=== PATIENT | male | born 1960 | race Caucasian/White ===

== ENCOUNTER 2016-10-18 13:13 | Observation (INO) ==
[2016-10-18] MEDS ORDERED: *HR* HYDROcodone/Acet 5/325 mg TABLET PO PRN (14:44)
[2016-10-18] MEDS ORDERED: Naloxone 0.4 MG/ML INJ IVP PRN (14:44)
[2016-10-18] MEDS ORDERED: Ondansetron 4 MG/2 ML VIAL IVP PRN (14:44)
[2016-10-18] MEDS ORDERED: Acetaminophen 325 MG TABLET PO PRN (14:44)
--- NOTE | 2016-10-18 16:36 | Internal Med History&Physical ---
<Mounika Fletcher - Last Filed: 10/18/16 17:09> Date of Encounter: 10/18/16 Time of Encounter: 16:23 Assessment and Plan (1) Near syncope Current visit: Yes Status: Acute 1 patient experienced a near syncopal episode approximately 5/6 AM. Contributing factors to the incident include history of CVA/TIA, diabetes poor oral intake, sleep deprivation. Presently neuro-Chek is within normal limits we will continue to monitor patient's neuro status 2 we will obtain MRI head/brain 3 we will obtain carotid Dopplers 4 obtain cardiac echo 5 lipid profile 6 continuous cardiac monitoring 7 fall precautions 8 IV fluids (2) Diabetes mellitus Current visit: Yes Status: Chronic 1 patient's on metformin at home creatinine is elevated we will hold for now. Accu-Cheks before meals at bedtime with slight scale insulin 2 we will obtain A1c 3 diabetic diet Qualifiers: Diabetes mellitus type: type 2 Diabetes mellitus complication status: with kidney complications Diabetes mellitus complication detail: with chronic kidney disease Diabetes mellitus mcfp insulin use: without exterminator helper use Chronic kidney disease stage: stage 3 (moderate) Qualified Code(s): E11.22 - Type 2 diabetes mellitus with diabetic chronic kidney disease; N18.3 - Chronic kidney disease, stage 3 (moderate) (3) History of CVA with residual deficit Current visit: No Status: Chronic 1 patient has history of CVA left lower extremity weakness. He is on aspirin which we will continue we will obtain lipid profile, statin (4) HTN (hypertension) Current visit: No Status: Chronic 1 presently controlled. We will hold lisinopril for now due to elevated creatinine. We will resume once back to baseline 2 low sodium diet Qualifiers: Hypertension type: essential hypertension Qualified Code(s): I10 - Essential (primary) hypertension (5) Xfgim-ot-bhpnigf kidney injury Current visit: Yes Status: Acute Presently creatinine is 2.14 last creatinine was 1.38-2015 GFR is 32 and appears previous GFR is around 40. Patient has had poor oral intake as well as has been taking lisinopril metformin. We will continue to monitor creatinine 2 we will hold metformin and lisinopril for now 3 we will give IV fluids 4 avoid nephrotoxins 5 monitor intake and output daily weights (6) Tobacco abuse Current visit: Yes Status: Acute 1 I did encourage patient to stop smoking however he verbalized was not interested in quitting at this time. Offered nicotine patch patient refused at this time I did discuss the negative effects of nicotine on the cardiovascular as well as pulmonary system. Again patient not interested in quitting (7) DVT prophylaxis Current visit: Yes Status: Acute scd Internal Medicine - H&P: HPI Chief complaint: near syncope Admitted From: Hospital to Hospital Transfer Plans for Post Hospital Care: Home History of present illness: Mr. Carrillo is a 56 year old male with past medical history of arthritis CVA 4 years ago left sided lower extremity weakness. Diabetes hyperlipidemia hypertension obstructive sleep apnea. 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 He denies any loss of consciousness falls or head injuries tremors or seizure activity slurred speech vision changes. The symptoms lasted approximately an hour and resolved on own. Patient does have past history of CVA approximately 4 years ago he states his symptoms at that time involved slurred speech and difficulty ambulating and elevated blood pressure. He is a diabetic and has had poor oral intake. His states that he does not eat or drink properly he is on metformin however he does not check his blood sugars. He states that he has been compliant with his medication and that his blood pressure has been controlled. He saw his primary care physician in approximately 2 months ago states he was doing well at that time. He presented to [facility] with the above complaints. CT of head was obtained which showed chronic microvascular changes as well as an old lacunar infarct lab work did reveal elevated creatinine 2.14 rested lab work was unremarkable. He was transferred to [facility] for further workup evaluation. Presently patient is alert and appropriate following simple commands neuro check within normal limits Cranial nerves 2 through 12 are intact. Patient does have weakness and left lower extremity. No facial droop noted speech is clear and fluent. Patient does admit to poor oral intake as well as obtaining only approximately 2 hours of sleep over the past 24 hours I reviewed this case with Dr. Sheppard who agrees with plan. Past Med Surg Social Fam HX - Past Medical History Medical history: arthritis, CVA, diabetes, GERD, hyperlipidemia, hypertension, syncope, TIA, other Psychiatric history: no psych history - Past Surgical History Surgical History: appendectomy, other - Social History Smoking Status: Current every day smoker Smokeless Tobacco Status: No (1 PPD) Alcohol use: none Drug use: none - Family History Mother Adopted: No Living Status: Hx Family Cardiac Disorders: No Hx Family Respiratory Disorders: No Hx Family Cancer: Yes (BREAST CANCER) Hx Family GI Disorders: No Hx Family Endocrine Disorder: No Hx Family Neuromuscular Disorders: No Hx Family Neurologic Disorders: No Hx Family HEENT Disorders: No Hx Family Autoimmune Disorders: No Son Adopted: No Internal Medicine - H&P: Meds Carvedilol [Coreg] 25 mg PO BID 12/09/14 [History] Ibuprofen 800 mg PO TID PRN 12/09/14 [History] Metformin HCl 1,000 mg PO BID 12/09/14 [History] Allopurinol [Zyloprim 100 MG] 100 mg PO DAILY 10/18/16 [History] Aspirin 81 mg PO DAILY 10/18/16 [History] Gabapentin [Neurontin] 600 mg PO QID 10/18/16 [History] Lisinopril [Zestril] 20 mg PO DAILY 10/18/16 [History] Omeprazole [PriLOSEC] 20 mg PO DAILY 10/18/16 [History] clonazePAM [Klonopin] 0.5 mg PO DAILY PRN 10/18/16 [History] Allergies No Known Allergies Allergy (Verified 10/18/16 08:17) All Systems PM: A 10-system review of systems was performed and is negative for pertinent findings except as documented above in the HPI. - Constitutional Constitutional: no chills, no fever(s), no night sweats - EENT Eyes: no change in vision, no discharge, no pain, no photophobia Ears: no ear discharge, no ear pain, no tinnitus Nose, mouth and throat: no dysphagia, no nasal discharge, no neck pain, no sore throat - Cardiovascular Cardiovascular ROS IM: no chest pain, no diaphoresis, no dyspnea, no lightheadedness, no palpitations, no syncope - Respiratory Respiratory: no cough, no dyspnea, no wheezing, no excessive phlegm production - Gastrointestinal Gastrointestinal: no abdominal pain, no diarrhea, no hematemesis, no hematochezia, no melena, no nausea, no vomiting - Musculoskeletal Musculoskeletal ROS IM: no numbness, no tingling - Integumentary Integumentary IM: no rash, no unusual bruising - Neurological Neurological ROS: no confusion, no convulsions, no focal weakness, no numbness, no tingling, no tremor(s) - Hematologic/Lymphatic Hematologic/Lymphatic: no easy bruising - Constitutional Vitals: Temp Pulse Resp BP Pulse Ox 98.1 F 67 98 115/78 99 10/18/16 15:47 10/18/16 15:47 10/18/16 15:47 10/18/16 15:47 10/18/16 14:52 General appearance: Present: A&O X 3, answers questions appropriately - Head Head exam: Present: atraumatic, normocephalic - Eye Eye exam: Present: PERRL, conjuntiva pink, sclera anicteric Pupils: Present: PERRL - Neck Neck exam general surgery: Present: supple, trachea midline. Absent: lymphadenopathy - Respiratory Respiratory exam: Present: CTAB. Absent: accessory muscle use, rales, rhonchi, wheezes - Cardiovascular Cardiovascular exam: Present: RRR, +S1, +S2. Absent: diastolic murmur, gallop, rubs, systolic murmur - GI/Abdominal GI/Abdominal exam: Present: normal bowel sounds, soft, no peritoneal signs. Absent: distended, tenderness - Neurological Exam Neurological exam: Present: CN II-XII intact, oriented X3, no focal deficits. Absent: pronater drift, facial droop, speech deficit Additional comments: left lower extremity weak - Skin Skin exam: Present: dry, intact Internal Med - H&P Results - EKG Data EKG shows normal: sinus rhythm - EKG Data Prior EKG available for review: no - Diagnostic Studies Other Images Additional comments: CT of head without contrast per radiology read dated 10/18/16 Findings: There is a moderate degree of periventricular and subcortical white matter low attenuation felt likely related to chronic microvascular ischemic changes. No definite acute wedge-shaped area of ischemia is identified. No intracranial hemorrhages to 5. There is a chronic appearing lacunar infarct noted adjacent to the frontal horn of the left lateral ventricle. No basilar cistern or sulcal effacement is identified. No intracranial masses seen. <Bijal Fostre - Last Filed: 10/18/16 18:47> Date of Encounter: 10/18/16 Internal Medicine - H&P: HPI History of present illness: Mr. Carrillo is a 56 year old male All Systems PM: A 10-system review of systems was performed and is negative for pertinent findings except as documented above in the HPI. - Constitutional Vitals: Temp Pulse Resp BP Pulse Ox 98.1 F 67 98 115/78 99 10/18/16 15:47 10/18/16 15:47 10/18/16 15:47 10/18/16 15:47 10/18/16 14:52 - Attending Attestation I examined this patient and reviewed laboratory, imaging and all diagnostic data. My medical decision-making was reviewed with Elisabeth Gomez NP. I agree with the documented findings, disposition and treatment plan as described above. History and exam by me shows: near-syncope episode. CT head showing chronic vessel ischemic changes. check MRI brain. doppler of carotids. telemetry.
[2016-10-18] MEDS ORDERED: clonazePAM 0.5 MG TABLET PO PRN (19:08)
[2016-10-18] MEDS: 0.9 % Sodium Chloride 1,000 ML IVC SCH (19:16)
[2016-10-18] MEDS: Gabapentin 300 MG CAPSULE PO SCH (23:05)
[2016-10-19] MEDS: 0.9 % Sodium Chloride 1,000 ML IVC SCH (05:27)
[2016-10-19 06:08] LABS: Basophils % 0.7 %; Eosinophils # 0.2 K/mcL (0.0-0.6); Hemoglobin 12.9 g/dL (12.9-16.9); Immature Granulocytes % 0.2 % (0-4); Lymphocytes # 1.6 K/mcL (0.6-4.6); Lymphocytes % 26.2 %; Mean Corpuscular HGB Conc 33.1 g/dL (31.6-35.5); Mean Corpuscular Hemoglobin 29.1 pg (28.0-33.3); Mean Platelet Volume 10.4 fL (9.4-12.4); Monocytes # 0.5 K/mcL (0.0-1.3); Monocytes % 8.8 %; Neutrophils # 3.6 K/mcL (1.6-8.9); Platelet Count 138 K/mcL (140-400); Red Blood Count 4.43 M/mcL (4.19-5.50); Red Cell Distribution Width 12.5 % (11.5-14.5); Segmented Neutrophils % 60.1 %
[2016-10-19 06:21] LABS: BUN/Creatinine Ratio 22 (6-26); Blood Urea Nitrogen 22 mg/dL (8-26); Calcium 9.4 mg/dL (8.6-10.8); Carbon Dioxide 26 mEq/L (19-29); Chloride 108 mEq/L (98-109); Chol/HDL Ratio 7.8 (0-4.9); Cholesterol 204 mg/dL (< 200); Glucose 99 mg/dL (70-99); HDL Cholesterol 26 mg/dL (40-59); LDL Cholesterol,Calculated 129 mg/dL (0-99); Magnesium 1.9 mg/dL (1.6-2.6); Osmolality,Calculated 295 (280-300); Phosphorous 2.8 mg/dL (2.3-4.7); Potassium 3.9 mEq/L (3.5-4.5); Sodium 141 mEq/L (136-145); Triglycerides 243 mg/dL (< 150); eGFR For African Americans > 60 (> 60); eGFR For Non-African Americans > 60 (> 60)
[2016-10-19 07:02] VITALS: BP 117/88
[2016-10-19] MEDS ORDERED: Aspirin 81 MG TAB.CHEW PO SCH (09:00)
[2016-10-19] MEDS: Gabapentin 300 MG CAPSULE PO SCH (09:19)
--- NOTE | 2016-10-19 11:47 | Discharge Summary ---
Date of Encounter: 10/19/16 Time of Encounter: 11:45 - Discharge Diagnosis (1) Near syncope Priority: Primary Status: Acute Comments: multifactorial: dehydration, poor oral intake in a diabetic person, +/- right ICA stenosis. echocardiogram: LVEF 55%, moderate LV diastolic dysfunction. moderate-severely dilated Left atrium. doppler of carotids showed right ICA 60-79% stenosis. MRI brains showed no acute intracranial process, moderate chronic white matter microvascular ischemic changes. remote bilateral basal ganglia and bifrontal periventricular white matter lacunar infarcts. 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 (5) CVA (cerebral infarction) Priority: Secondary Status: Chronic Qualifiers: Cerebral infarction mechanism: unspecified mechanism Qualified Code(s): I63.9 - Cerebral infarction, unspecified (6) HTN (hypertension) Priority: Primary Status: Chronic Qualifiers: Hypertension type: essential hypertension Qualified Code(s): I10 - Essential (primary) hypertension (7) Diabetes mellitus Priority: Secondary Status: Chronic Qualifiers: Diabetes mellitus type: type 2 Diabetes mellitus complication status: with kidney complications Diabetes mellitus complication detail: with chronic kidney disease Diabetes mellitus exterminator helper insulin use: without exterminator helper use Chronic kidney disease stage: stage 3 (moderate) Qualified Code(s): E11.22 - Type 2 diabetes mellitus with diabetic chronic kidney disease; N18.3 - Chronic kidney disease, stage 3 (moderate) (8) History of CVA with residual deficit Priority: Secondary Status: Chronic (9) Tobacco abuse Priority: Secondary Status: Chronic - Discharge Medications Prescriptions: Atorvastatin [Lipitor] 20 mg PO HS #60 tablet Home Medications: Carvedilol [Coreg] 25 mg PO BID 12/09/14 [History] Metformin HCl 1,000 mg PO BID 12/09/14 [History] Allopurinol [Zyloprim 100 MG] 100 mg PO DAILY 10/18/16 [History] Aspirin 81 mg PO DAILY 10/18/16 [History] Gabapentin [Neurontin] 600 mg PO QID 10/18/16 [History] Omeprazole [PriLOSEC] 20 mg PO DAILY 10/18/16 [History] clonazePAM [Klonopin] 0.5 mg PO DAILY PRN 10/18/16 [History] Atorvastatin [Lipitor] 20 mg PO HS #60 tablet 10/19/16 [Rx] Lisinopril [Zestril] 10 mg PO DAILY #0 10/19/16 [Rx] Allergies/Adverse Reactions: Allergies No Known Allergies Allergy (Verified 10/18/16 08:17) Procedures/tests Complete & Pending: Procedures Performed prior 72 hours Category Date Time Status CTA Neck [CT angio neck] [CT] Routine Cat Scan 10/19/16 11:19 Ordered MR head/brain wo con [MR] Stat MRI 10/18/16 16:39 Completed ECG 12 lead ECG [ECG] AM 0600 Y 10/19/16 06:00 Ordered EV carotid duplex imaging BI Routine Y 10/19/16 15:41 Completed EV echo with saline Routine Y 10/19/16 15:41 Completed Date of admission: 10/18/16 14:10 Primary care physician: Xavier Thomas MD - Patient Status Disposition: Home, Self-Care Condition: Good Functional capacity at discharge: independent ambulation Overall status at discharge: patient is progressing back to baseline - Ambulatory Orders Ambulatory Orders: CT angio neck [CT] Time Frame: 1 Week, Facility: [facility], Location: Radiology - Discharge Instructions Instructions: Atorvastatin (By mouth), Ischemic Stroke (DC) Follow Up With: Xavier Thomas MD [Primary Care Provider] - 10/26/16 10:00 am Additional Instructions: please take the test as soon as possible and follow with your doctor for the results. please check your blood pressure twice daily and your sugars before meals and at bedtime, write down the numbers and bring record to doctor's appointment. - Diet and Activity Activity: resume usual activities as tolerated Diet: diabetic diet, low fat, low cholesterol, low salt diet Interval History: patient declines CTA neck inpatient. he made plans and needs to leave before noon. Hospital course: Mr. Carrillo is a 56 year old male with past medical history of htn, CKD 3, diabetes, prior CVA with residual left-sided hemiparesis and tobacco use who had a near syncopal episode. troponin negative x2. EKG was unremarkable. CT head was negative for any acute process. MRI brain showed no acute intracranial process, moderate chronic white matter microvascular ischemic changes. remote bilateral basal ganglia and bifrontal periventricular white matter lacunar infarcts. Echocardiogram shows LVEF 55%, moderate LV diastolic dysfunction. moderate-severely dilated Left atrium. doppler of carotids showed right ICA 60- 79% stenosis. Patient explained in detail the findings of all tests done and that his symptoms could be secondary to dehydration, poor oral intake in a diabetic person and right ICA stenosis. I explained to him the need to have a CTA neck done but he declined any more tests inpatient and wished to go home. He agreed to have CTA neck done as outpatient. PLAN: started on aspirin and statin. follow up with primary care doctor in 1 week. - Time Spent with Patient Total time spent providing and/or coordinating discharge services: - Constitutional Vitals: Temp Pulse Resp BP Pulse Ox 98.1 F 63 16 117/88 96 10/19/16 06:55 10/19/16 06:55 10/19/16 06:55 10/19/16 06:55 10/18/16 19:39 General appearance: Present: cooperative, A&O X 3, pleasant, no acute distress, answers questions appropriately - Respiratory Respiratory exam: Present: CTAB - Cardiovascular Cardiovascular exam: Present: RRR - GI/Abdominal GI/Abdominal exam: Present: normal bowel sounds, soft. Absent: distended, tenderness - Extremities Exam Extremities exam: Present: pedal edema - Back Exam Back exam: Absent: CVA tenderness (L), CVA tenderness (R) - Neurological Exam Neurological exam: Present: alert, oriented X3, facial droop (left facial droop is chronic). Absent: pronater drift, speech deficit - Skin Skin exam: Absent: rash
--- NOTE | 2016-10-20 19:24 | Carotid Imaging Report ---
Carotid Duplex Patient Name:Devante Carrillo Order Number:[id number] Procedure Date:10/19/2016 Date:1960ge:56 yrs Gender:Male Lt BP:152 / 62 mmHg Rt.BP:145 / 86 mmHgHeart Rate: Location:[facility] Room #: 2NE28 Associate Professor Computer Science:Antony Reyes RN Referring MD:Mounika Fletcher EMISSIONS INSPECTOR merchandise presentation associate:Xavier Thomas MD Reading MD:Onur Gibson MD , FACS Primary Indications:Syncope Risk Factors Yes/No Hypertension Yes Diabetes Yes Hypercholesterolemia Yes Smoking Current Yes Hx of CVA Yes Anticoagulants No Hx of CAD/PTCA No Previous Vascular Surgery No Impressions: Findings: Right carotid system has a severe, 60-79% stenosis. Findings: Left carotid system has nonstenotic plaque. Recommendations: Test completed on 10/19/2016 at 8:30:00 am. Findings Carotid Duplex: Right: The right proximal common carotid artery has a PSV of 108 cm/s and a EDV of 20 cm/s. The right mid common carotid artery has a PSV of 55 cm/s and a EDV of 15 cm/s. There is nonstenotic plaque in the right distal common carotid artery with a PSV of 54 cm/s and a EDV of 13 cm/s. There is smooth heterogeneous plaque. There is nonstenotic plaque in the right bifurcation with a PSV of 53 cm/s and a EDV of 15 cm/s. There is smooth heterogeneous plaque. There is nonstenotic plaque in the right proximal internal carotid artery with a PSV of 53 cm/s and a EDV of 17 cm/s. There is smooth heterogeneous plaque. There is 60-79% stenosis in the right mid internal carotid artery with a PSV of 147 cm/s and a EDV of 54 cm/s. There is 60-79% stenosis in the right distal internal carotid artery with a PSV of 140 cm/s and a EDV of 63 cm/s. There is nonstenotic plaque in the right eca with a PSV of 222 cm/s and a EDV of 34 cm/s. There is smooth heterogeneous plaque. The right vertebral artery has a PSV of 42 cm/s and a EDV of 18 cm/s. Left: The left proximal common carotid artery has a PSV of 131 cm/s and a EDV of 35 cm/s. The left mid common carotid artery has a PSV of 72 cm/s and a EDV of 24 cm/s. There is nonstenotic plaque in the left distal common carotid artery with a PSV of 73 cm/s and a EDV of 24 cm/s. There is smooth heterogeneous plaque. There is nonstenotic plaque in the left bifurcation with a PSV of 74 cm/s and a EDV of 24 cm/s. There is smooth heterogeneous plaque. There is nonstenotic plaque in the left proximal internal carotid artery with a PSV of 73 cm/s and a EDV of 25 cm/s. There is smooth heterogeneous plaque. There is nonstenotic plaque in the left mid internal carotid artery with a PSV of 81 cm/s and a EDV of 29 cm/s. There is smooth heterogeneous plaque. The left distal internal carotid artery has a PSV of 55 cm/s and a EDV of 20 cm/s. There is nonstenotic plaque in the left eca with a PSV of 124 cm/s and a EDV of 13 cm/s. There is smooth heterogeneous plaque. The left vertebral artery has a PSV of 56 cm/s and a EDV of 20 cm/s. Prior Study: Changes noted compared to prior study dated: 08/01/2013. Carotid Results Right PSV EDV Assessment Proximal CCA 108 20 Normal Mid CCA 55 15 Normal Distal CCA 54 13 Non Stenotic Plaque Bifurcation 53 15 Non Stenotic Plaque Proximal ICA 53 17 Non Stenotic Plaque Mid ICA 147 54 60-79% stenosis Distal ICA 140 63 60-79% stenosis ECA 222 34 Non Stenotic Plaque Vertebral Artery 42 18 Normal Left PSV EDV Assessment Proximal CCA 131 35 Normal Mid CCA 72 24 Normal Distal CCA 73 24 Non Stenotic Plaque Bifurcation 74 24 Non Stenotic Plaque Proximal ICA 73 25 Non Stenotic Plaque Mid ICA 81 29 Non Stenotic Plaque Distal ICA 55 20 Normal ECA 124 13 Non Stenotic Plaque Vertebral Artery 56 20 Normal Ratio's Right ICA/CCA Ratio: 2.67 ICA/CCA Values: 147/55 Left ICA/CCA Ratio: 1.13 ICA/CCA Values: 81/72 Updated by Onur Gibson MD, FACS on 10/20/2016 7:19:34 PM Onur Gibson MD electronically signed on 10/20/2016 7:19:55 PM with status of Final
== END 2016-10-19 12:18 | disposition home or self-care (01) ==
LOC: 2NENU → SUATTDRO 14:10
PROVIDERS: ADMIT Internal Medicine; ATTEND Internal Medicine

== ENCOUNTER 2017-11-15 01:26 | Inpatient (IN) ==
[2017-11-15 05:42] LABS: Troponin I < 0.03 ng/mL (< 0.04)
[2017-11-15] MEDS ORDERED: Naloxone 0.4 MG/ML INJ IVP PRN (07:57)
[2017-11-15] MEDS ORDERED: *HR* Dextrose 50 % in Water (Syg) 50 ML SYRINGE IVP PRN (08:01)
[2017-11-15] MEDS ORDERED: Dextrose Gel 15 GM/37.5 ML TUBE PO PRN ×2 (08:01)
[2017-11-15] MEDS ORDERED: D5% in Water 1,000 ML IVC PRN (08:01)
[2017-11-15] MEDS: Aspirin 81 MG TAB.CHEW PO SCH (08:20)
[2017-11-15] MEDS: Gabapentin 300 MG CAPSULE PO SCH ×5 (08:21→20:24)
[2017-11-15 08:59] LABS: Estimated Average Glucose 131 mg/dl; Hemoglobin A1C 6.2 %
[2017-11-15 09:08] LABS: Chol/HDL Ratio 6.1 (0-4.9); Cholesterol 176 mg/dL (< 200); HDL Cholesterol 29 mg/dL (40-59); LDL Cholesterol,Calculated 112 mg/dL (0-99); Triglycerides 173 mg/dL (< 150)
--- NOTE | 2017-11-15 09:08 | Internal Med History&Physical ---
Date of Encounter: 11/15/17 Time of Encounter: 09:06 Internal Medicine - H&P: HPI Chief complaint: Chest pressure Admitted From: Home Plans for Post Hospital Care: Home History of present illness: Mr. Carrillo is a 57 year old male with past medical history of diabetes mellitus , CHF with preserved ejection fraction, history of erosive CVA with residual deficits, hypertension presented to the outside facility with complaints of chest pressure said to have started at home prior to presentation, lasted for about 30 minutes. No associated diaphoresis, dyspnea on exertion or at rest, leg swelling, dizziness, or confusion. He reports chest pain resolved after administration of nitroglycerin at the outside facility. He denies any other chest or respiratory symptoms. He denies neurologic symptoms. He denies nausea vomiting or diarrhea, no change in bowel or urinary habits. The patient smokes occasionally, he denies illicit drug use. There is significant family history of cardiac disease before the age of 55 in his father. Initial troponin and EKG from outside facility unremarkable. Second troponin done here at [facility] unremarkable. The patient will be placed on observation for chest pain rule out acute coronary syndrome. He is full code Past Med Surg Social Fam HX - Past Medical History Medical history: arthritis, CVA, diabetes, GERD, hyperlipidemia, hypertension, syncope, TIA, other Additional medical history: TIA X 2, BELLS PALSY Psychiatric history: no psych history - Past Surgical History Surgical History: appendectomy, other Additional surgical history: LEFT KNEE SURGERY - Social History Smoking Status: Current every day smoker Smokeless Tobacco Status: No Alcohol use: none Drug use: none - Family History Mother Adopted: No Living Status: Hx Family Cardiac Disorders: No Hx Family Respiratory Disorders: No Hx Family Cancer: Yes (BREAST CANCER) Hx Family GI Disorders: No Hx Family Endocrine Disorder: No Hx Family Neuromuscular Disorders: No Hx Family Neurologic Disorders: No Hx Family HEENT Disorders: No Hx Family Autoimmune Disorders: No Son Adopted: No Internal Medicine - H&P: Meds Aspirin 81 mg PO DAILY 10/18/16 [History] Gabapentin [Neurontin] 600 mg PO QID 10/18/16 [History] Omeprazole [PriLOSEC] 20 mg PO DAILY 10/18/16 [History] Carvedilol [Coreg] 25 mg PO BID 11/15/17 [History] Ibuprofen [Ibuprofen] 800 mg PO TID PRN 11/15/17 [History] Lisinopril [Zestril] 20 mg PO DAILY 11/15/17 [History] Metformin HCl [Metformin HCl] 1,000 mg PO BID 11/15/17 [History] 3 Allergy/AdvReac Type Severity Reaction Status Date / Time No Known Allergies Allergy Verified 11/14/17 21:44 All Systems PM: A 10-system review of systems was performed and is negative for pertinent findings except as documented above in the HPI. - Constitutional Constitutional: no chills, no fever(s), no night sweats - EENT Eyes: no change in vision, no discharge, no pain, no photophobia Ears: no ear discharge, no ear pain, no tinnitus Nose, mouth and throat: no dysphagia, no nasal discharge, no neck pain, no sore throat - Cardiovascular Cardiovascular ROS IM: as per HPI, chest pain, no diaphoresis, no dyspnea, no dyspnea on exertion, no lightheadedness, no palpitations, no syncope - Respiratory Respiratory: as per HPI, no cough, no dyspnea, no wheezing, no excessive phlegm production - Gastrointestinal Gastrointestinal: no abdominal pain, no diarrhea, no hematemesis, no hematochezia, no melena, no nausea, no vomiting - Musculoskeletal Musculoskeletal ROS IM: no numbness, no tingling - Integumentary Integumentary IM: no rash, no unusual bruising - Neurological Neurological ROS: no confusion, no convulsions, no focal weakness, no numbness, no tingling, no tremor(s) - Hematologic/Lymphatic Hematologic/Lymphatic: no easy bruising - Constitutional Vitals: Temp Pulse Resp BP Pulse Ox 100.3 F H 71 16 136/83 96 11/15/17 07:53 11/15/17 07:53 11/15/17 07:53 11/15/17 07:53 11/15/17 07:53 General appearance: Present: A&O X 3, pleasant, no acute distress - Head Head exam: Present: atraumatic, normocephalic - Eye Eye exam: Present: PERRL, conjuntiva pink, sclera anicteric Pupils: Present: PERRL - Neck Neck exam general surgery: Present: supple, trachea midline. Absent: lymphadenopathy - Respiratory Respiratory exam: Present: CTAB. Absent: accessory muscle use, rales, rhonchi, wheezes - Cardiovascular Cardiovascular exam: Present: RRR, +S1, +S2. Absent: diastolic murmur, gallop, rubs, systolic murmur - GI/Abdominal GI/Abdominal exam: Present: normal bowel sounds, soft, no peritoneal signs. Absent: distended, tenderness - Extremities Exam Extremities exam: Present: warm, radial pulses palpable and symmetrical. Absent : calf tenderness, cyanotic, pedal edema - Neurological Exam Neurological exam: Present: alert, CN II-XII intact, oriented X3, no focal deficits, facial droop (Right facial droop, residual deficit from prior stroke.) . Absent: pronater drift, speech deficit - Skin Skin exam: Present: dry, intact Internal Med - H&P Results - Labs Labs: Cardiac Enzymes 11/15/17 Range/Units 04:12 Troponin I < 0.03 (< 0.04) ng/mL - Assessment and plan (1) Chest pain Current Visit: Yes Status: Acute Assessment and plan: Patient with significant risk factors including history of prior strokes 2, hyperlipidemia, diabetes mellitus, and family history of CT before the age of 15 his father who presented with exertional chest pain Troponin negative 2 EKG with normal sinus rhythm and no ST segment changes. Chest x-ray with cardiomegaly, no acute findings, CT angiogram unremarkable for embolism but shows coronary artery disease. Obtain third set of troponin Obtain echocardiogram Stress tests a.m. 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 Diabetes mellitus complication status: with kidney complications Diabetes mellitus complication detail: with chronic kidney disease Chronic kidney disease stage: stage 3 (moderate) Qualified Code(s): E11.22 - Type 2 diabetes mellitus with diabetic chronic kidney disease; N18.3 - Chronic kidney disease, stage 3 (moderate) (3) DVT prophylaxis Current Visit: Yes Status: Acute Assessment and plan: Lovenox (4) GERD (gastroesophageal reflux disease) Current Visit: Yes Status: Chronic Assessment and plan: Continue home dose of omeprazole Qualifiers: Esophagitis presence: esophagitis presence not specified Qualified Code(s) : K21.9 - Gastro-esophageal reflux disease without esophagitis (5) History of CVA with residual deficit Current Visit: Yes Status: Chronic Assessment and plan: With residual left hemiparesis and right facial droop Continue aspirin and Lipitor (6) HTN (hypertension) Current Visit: Yes Status: Chronic Assessment and plan: controlled on home medications, continue the same. Qualifiers: Hypertension type: essential hypertension Qualified Code(s): I10 - Essential (primary) hypertension (7) Tobacco abuse Current Visit: Yes Status: Chronic Assessment and plan: Cessation counseling provided - Time Spent With Patient Total time spent is greater than 50% in coordination of care (as documented) at patient's floor/unit and/or counseling patient:
[2017-11-15] MEDS: Insulin LISPRO 300 UNITS/3 ML VIAL SQ SCH ×3 (11:39→20:19)
[2017-11-15] MEDS ORDERED: Acetaminophen 325 MG TABLET PO PRN (20:48)
[2017-11-15] MEDS: Acetaminophen 325 MG TABLET PO PRN (21:54)
[2017-11-16] MEDS ORDERED: Regadenoson 0.4 MG/5 ML SYRINGE IVP ONE (05:30)
[2017-11-16 09:49] LABS: Basophils % 0.4 %; Eosinophils # 0.1 K/mcL (0.0-0.6); Eosinophils % 1.9 %; Hematocrit 37.7 % (37.5-50.1); Hemoglobin 12.8 g/dL (12.9-16.9); Immature Granulocytes % 0.4 % (0-4); Lymphocytes # 1.1 K/mcL (0.6-4.6); Mean Corpuscular Hemoglobin 29.9 pg (28.0-33.3); Mean Corpuscular Volume 88.1 fL (83.0-100.0); Mean Platelet Volume 9.8 fL (9.4-12.4); Monocytes # 0.7 K/mcL (0.0-1.3); Monocytes % 14.2 %; Neutrophils # 2.8 K/mcL (1.6-8.9); Platelet Count 111 K/mcL (140-400); Red Blood Count 4.28 M/mcL (4.19-5.50); Red Cell Distribution Width 13.2 % (11.5-14.5); Segmented Neutrophils % 59.1 %
[2017-11-16] MEDS: Gabapentin 300 MG CAPSULE PO SCH ×4 (09:57→20:32)
[2017-11-16] MEDS: Aspirin 81 MG TAB.CHEW PO SCH (09:57)
[2017-11-16 10:05] LABS: BUN/Creatinine Ratio 15 (6-26); Blood Urea Nitrogen 14 mg/dL (6-20); Calcium 9.2 mg/dL (8.6-10.3); Carbon Dioxide 26 mEq/L (23-29); Chloride 104 mEq/L (98-107); Glucose 106 mg/dL (70-105); Osmolality,Calculated 283 (280-300); Potassium 3.6 mEq/L (3.5-5.1); Sodium 136 mEq/L (136-145); eGFR For African Americans > 60 (> 60); eGFR For Non-African Americans > 60 (> 60)
[2017-11-16] MEDS: Insulin LISPRO 300 UNITS/3 ML VIAL SQ SCH ×4 (10:09→20:30)
[2017-11-16 11:45] LABS: Adenovirus Not Detected (Not Detect); Bordetella Pertussis Not Detected (Not Detect); Chlamydophila pneumoniae Not Detected (Not Detect); Coronavirus 229E Not Detected (Not Detect); Coronavirus HKU1 Not Detected (Not Detect); Coronavirus NL63 Not Detected (Not Detect); Coronavirus OC43 Not Detected (Not Detect); Human Metapneumovirus Not Detected (Not Detect); Human Rhinovirus/Enterovirus Not Detected (Not Detect); Influenza A Subtype 2009 H1 Not Detected (Not Detect); Influenza A Untypeable Not Detected (Not Detect); Influenza B Not Detected (Not Detect); Mycoplasma pneumoniae Not Detected (Not Detect); Parainfluenza Virus 1 Not Detected (Not Detect); Parainfluenza Virus 2 Not Detected (Not Detect); Parainfluenza Virus 3 Not Detected (Not Detect); Parainfluenza Virus 4 Not Detected (Not Detect); Respiratory Syncytial Virus Not Detected (Not Detect)
[2017-11-16] MEDS: Acetaminophen 325 MG TABLET PO PRN (12:10)
--- NOTE | 2017-11-16 13:39 | Cardiology Consult Note ---
<Ximena Powers Angelo - Last Filed: 11/16/17 13:37> Date of Encounter: 11/16/17 Time of Encounter: 13:15 Assessment and Plan (1) Abnormal stress test Current Visit: Yes Status: Acute Troponin negative x3. No acute ischemic changes noted. Chest pain free since admission. Cardiology consult today for abnormal stress test: small, mild basal inferolateral defect consistent with ischemia, SDS 1, gated EF 50%. TTE shows preserved LVEF with normal wall motion. Significant risk factors for CAD include: tobacco abuse, HTN, HLD, DMII, and family hx. Of note, thrombocytopenia noted with PLT 111--hx documented in outpatient notes. Patient denies hx--no abnormal bleeding reported. On asa at home. Recommend LHC with possible PCI; patient will consider but prefers to do in the outpatient setting. Will further review with Dr. Rashid. Continue asa, statin, and BB. Discussion w patient/family: The assessment and plan as outlined above was discussed with the patient and/or family members who expressed understanding and agreement. All questions were answered. Thank you for involving us in the care of your patient. Please call with any questions. The patient will be discussed and reviewed with Dr. Rashid; changes to be made accordingly. History of Present Illness Consult date: 11/16/17 Requesting physician: Nimco Aec Consult reason: Abnormal stress test Chief complaint: Chest pressure History of present illness: Mr. 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 Reports discomfort was non-radiating and lasted several minutes; resolved without intervention. He was then sent to the ED from work for further evaluation. Troponin negative. ECG was without ischemic changes. Cardiology consulted today for abnormal stress test--small, mild basal inferolateral defect, gated EF=50% Past Med Surg Social Fam HX - Past Medical History Attestation: Yes The following information was validated with the patient. Source: patient Medical history: arthritis, CVA, diabetes, GERD, hyperlipidemia, hypertension, syncope, TIA, other Additional medical history: TIA X 2, BELLS PALSY Psychiatric history: no psych history - Past Surgical History Surgical History: appendectomy, other Additional surgical history: LEFT KNEE SURGERY - Social History Smoking Status: Current every day smoker Packs per day: 0.5 Smokeless Tobacco Status: No Alcohol use: none Drug use: none - Family History Mother Adopted: No Living Status: Hx Family Cardiac Disorders: No Hx Family Respiratory Disorders: No Hx Family Cancer: Yes (BREAST CANCER) Hx Family GI Disorders: No Hx Family Endocrine Disorder: No Hx Family Neuromuscular Disorders: No Hx Family Neurologic Disorders: No Hx Family HEENT Disorders: No Hx Family Autoimmune Disorders: No Son Adopted: No Medications and Allergies Aspirin 81 mg PO DAILY 10/18/16 [History] Gabapentin [Neurontin] 600 mg PO QID 10/18/16 [History] Omeprazole [PriLOSEC] 20 mg PO DAILY 10/18/16 [History] Carvedilol [Coreg] 25 mg PO BID 11/15/17 [History] Ibuprofen [Ibuprofen] 800 mg PO TID PRN 11/15/17 [History] Lisinopril [Zestril] 20 mg PO DAILY 11/15/17 [History] Metformin HCl [Metformin HCl] 1,000 mg PO BID 11/15/17 [History] 3 Allergy/AdvReac Type Severity Reaction Status Date / Time No Known Allergies Allergy Verified 11/14/17 21:44 All Systems Review: The remainder of the systems were reviewed and are negative - Cardiovascular Cardiovascular: as per HPI Physical Examination Vital Signs, Last 4 Hours Temp Pulse Resp BP Pulse Ox 11/16/17 11:29 98.3 F 56 18 122/76 97 General: Conversant HEENT: Atraumatic, Normocephaly Cardiac: Reg Rate and Rhythm, Normal S1 and S2 Lungs: Normal Breath Sounds Neuro: Alert and responsive Abdomen: Soft Skin: No rashes noted on visualized skin Musculoskeletal: No Chest Wall Tenderness Extremities: No Edema, Normal Pulses Results 11/16/17 09:34 11/16/17 09:34 Lab Results 11/16/17 11/16/17 09:34 09:34 WBC 4.7 Hgb 12.8 L Hct 37.7 Plt Count 111 L Sodium 136 Potassium 3.6 Chloride 104 Carbon Dioxide 26 BUN 14 Creatinine 0.94 Glucose 106 H Calcium 9.2 Active Medications Acetaminophen (Tylenol) 650 mg PO Q6HR PRN PRN Reason: Pain and/or Fever Stop: 05/17/18 23:24 Last Admin: 11/16/17 12:10 Dose: 650 mg Aspirin (Aspirin) 81 mg PO DAILY [facility] Stop: 05/17/18 09:01 Last Admin: 11/16/17 09:57 Dose: 81 mg Atorvastatin Calcium (Lipitor) 40 mg PO HS [facility] Stop: 05/17/18 21:01 Last Admin: 11/15/17 20:24 Dose: 40 mg Carvedilol (Coreg) 25 mg PO BIDWM [facility] PRN Reason: Protocol Stop: 05/17/18 08:16 Last Admin: 11/16/17 09:59 Dose: Not Given Dextrose/Water (Dextrose 50% (Syg)) 25 ml IVP AD PRN PRN Reason: Hypoglycemia Stop: 05/17/18 08:02 Gabapentin (Neurontin) 600 mg PO QID [facility] Stop: 05/17/18 09:01 Last Admin: 11/16/17 12:11 Dose: 600 mg Glucagon (Glucagen) 1 mg IM ONCE PRN PRN Reason: Hypoglycemia Stop: 05/17/18 08:02 Glucose (Gluctose) 15 gm PO ONCE PRN PRN Reason: Hypoglycemia Stop: 05/17/18 08:02 Glucose (Gluctose) 30 gm PO ONCE PRN PRN Reason: Hypoglycemia Stop: 05/17/18 08:02 Dextrose (Dextrose 5%) 1,000 mls @ 100 mls/hr IVC .Q10H PRN PRN Reason: HYPOGLYCEMIA Stop: 05/17/18 08:02 Insulin Human Lispro (Humalog) 0 units SQ TIDAC [facility] PRN Reason: Protocol Stop: 05/17/18 11:31 Last Admin: 11/16/17 12:11 Dose: 2 units Insulin Human Lispro (Humalog) 0 units SQ [facility] PRN Reason: Protocol Stop: 05/17/18 21:01 Last Admin: 11/15/17 20:19 Dose: Not Given Lisinopril (Zestril) 10 mg PO DAILY [facility] PRN Reason: Protocol Stop: 05/17/18 09:01 Last Admin: 11/16/17 09:56 Dose: 10 mg Naloxone HCl (Narcan) 0.4 mg IVP Q2MIN PRN PRN Reason: SEE COMMENTS Stop: 05/17/18 07:58 Omeprazole (Prilosec) 20 mg PO DAILY@0630 [facility] PRN Reason: Protocol Stop: 05/17/18 09:01 Last Admin: 11/16/17 05:06 Dose: Not Given - Imaging and Cardiology Stress Test: report reviewed Echo: report reviewed - EKG Interpretation EKG results cardiology: personally reviewed Consult Discharge Plan - Plan Referrals: Xavier Thomas MD [Primary Care Provider] - <Ghada Rashid - Last Filed: 11/16/17 15:55> Date of Encounter: 11/16/17 - Attending Attestation I have personally performed a face to face evaluation on this patient. I have reviewed and agree with the care plan. History and Exam by me shows: 57 YOm with chest pain multiple times prior to admisson Abnormal stress test Left heart cath R/B/A d/w vivek and he agrees to proceed Assessment and Plan Discussion w patient/family: The assessment and plan as outlined above was discussed with the patient and/or family members who expressed understanding and agreement. All questions were answered. Thank you for involving us in the care of your patient. Please call with any questions. History of Present Illness History of present illness: Mr. Carrillo is a 57 year old male All Systems Review: The remainder of the systems were reviewed and are negative Results 11/16/17 09:34 11/16/17 09:34 Lab Results 11/16/17 11/16/17 09:34 09:34 WBC 4.7 Hgb 12.8 L Hct 37.7 Plt Count 111 L Sodium 136 Potassium 3.6 Chloride 104 Carbon Dioxide 26 BUN 14 Creatinine 0.94 Glucose 106 H Calcium 9.2
--- NOTE | 2017-11-16 17:12 | Internal Med Progress Note ---
Date of Encounter: 11/16/17 Time of Encounter: 09:30 - Assessment and plan (1) Chest pain Current Visit: Yes Status: Acute Assessment and plan: improved now; Telemetry and serial Troponins negative for ACS; initial EKG and chest XRay were normal; Lipid profile noted, mildly elevated TG and LDL-cholesterol; continue ASA, statin and beta kenisha; nuclear stress test is abnormal with Small sized, mild intensity, reversible basal inferolateral defect suggestive of ischemia. Echo showed preserved EF, mild concentric LVH; Cardiology consulted, possible plan for [facility] tomorrow; Qualifiers: Chest pain type: other chest pain Qualified Code(s): R07.89 - Other chest pain; R07.8 - Other chest pain (2) HTN (hypertension) Current Visit: Yes Status: Chronic Assessment and plan: BP acceptable; continue home meds; Qualifiers: Hypertension type: essential hypertension Qualified Code(s): I10 - Essential (primary) hypertension (3) GERD (gastroesophageal reflux disease) Current Visit: Yes Status: Chronic Qualifiers: Esophagitis presence: esophagitis presence not specified Qualified Code(s) : K21.9 - Gastro-esophageal reflux disease without esophagitis (4) Diabetes mellitus Current Visit: Yes Status: Chronic Assessment and plan: blood sugars well-controlled; A1C 6.2%; continue Accucheck blood glucose monitoring with SSI as needed; diabetic diet; Qualifiers: Diabetes mellitus type: type 2 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[facility] use Diabetes mellitus complication status: with unspecified complications Qualified Code(s): E11.8 - Type 2 diabetes mellitus with unspecified complications (5) History of CVA with residual deficit Current Visit: Yes Status: Chronic (6) DVT prophylaxis Current Visit: Yes Status: Acute (7) Tobacco abuse Current Visit: Yes Status: Chronic - Time Spent With Patient Total time spent is greater than 50% in coordination of care (as documented) at patient's floor/unit and/or counseling patient: - Subjective Interval history: Reports improvement in chest pain; no dyspnea, cough; also had high grade fever last night, now afebrile; - Constitutional Vitals: Temp Pulse Resp BP Pulse Ox 97.9 F 50 18 151/76 98 11/16/17 16:00 11/16/17 16:00 11/16/17 16:00 11/16/17 16:00 11/16/17 16:00 General appearance: Present: A&O X 3, answers questions appropriately - Respiratory Respiratory exam: Present: CTAB. Absent: accessory muscle use, rales, rhonchi, wheezes - Cardiovascular Cardiovascular exam: Present: RRR, +S1, +S2. Absent: diastolic murmur, gallop, rubs, systolic murmur - GI/Abdominal GI/Abdominal exam: Present: normal bowel sounds, soft, no peritoneal signs. Absent: distended, tenderness - Extremities Exam Extremities exam: Present: full ROM, warm, radial pulses palpable and symmetrical. Absent: calf tenderness, cyanotic, pedal edema Internal Medicine: Result - Labs CBC & Chem 7: 11/16/17 09:34 11/16/17 09:34 Labs: Short CBC 11/16/17 Range/Units 09:34 WBC 4.7 (4.3-11.1) K/mcL Hgb 12.8 L (12.9-16.9) g/dL Hct 37.7 (37.5-50.1) % Plt Count 111 L (140-400) K/mcL Neutrophils # 2.8 (1.6-8.9) K/mcL BMP 11/16/17 09:34 Sodium 136 Potassium 3.6 Chloride 104 Carbon Dioxide 26 BUN 14 Creatinine 0.94 Glucose 106 H Calcium 9.2 - Impressions Impressions Echocardiogram 11/15/17 07:56 Impressions: LVEF 60%. Normal LV chamber size and function. Mild concentric left ventricular hypertrophy. Mild left ventricular diastolic dysfunction. Normal right ventricular structure and function. No evidence of pulmonary hypertension. No significant valvular dysfunction. Left Ventricular Wall Motion: Rest Echo Findings All wall segments showed normal motion. Findings: Study Quality * Technically adequate exam. ECG Findings * Normal sinus rhythm. Left Ventricle * LVEF 60%. * Normal LV chamber size and function. * Mild concentric left ventricular hypertrophy. * Mild left ventricular diastolic dysfunction. Right Ventricle * Normal right ventricular structure and function. Left Atrium * Moderately dilated left atrium. Right Atrium * Normal right atrial size. Aortic Valve * Aortic valve not well visualized. * No aortic stenosis. * No aortic regurgitation. Mitral Valve * Normal mitral valve structure and function. * No mitral stenosis. * Trace mitral regurgitation. Tricuspid Valve * Normal tricuspid valve structure and function. * Trace tricuspid regurgitation. * No evidence of pulmonary hypertension. Pulmonic Valve * Pulmonic valve is not well visualized. * No pulmonic regurgitation. Aorta * Normally sized aortic root. Pericardium * The pericardium appears normal. IVC * Normal IVC dimensions and inspiratory collapse. Pulmonary Artery * Normal visualized portions of the main pulmonary artery. Consult Discharge Plan - Plan Referrals: Xavier Thomas MD [Primary Care Provider] -
[2017-11-17] MEDS: Gabapentin 300 MG CAPSULE PO SCH ×4 (07:55→20:46)
[2017-11-17] MEDS: Insulin LISPRO 300 UNITS/3 ML VIAL SQ SCH ×4 (07:56→20:48)
[2017-11-17] MEDS: Aspirin 81 MG TAB.CHEW PO SCH ×2 (07:56→09:27)
--- NOTE | 2017-11-17 09:23 | Event Note ---
Date of Encounter: 11/17/17 Time of Encounter: 08:30 - Cardiology Event Note Plan for [facility] today with possible PCI--pt. remains agreeable. Indication: Abnormal stress test, effort angina. Will check CBC, BMP this AM to ensure PLT remain stable. Discussed and reviewed with Dr. Rashid.
[2017-11-17 09:50] LABS: Basophils % 0.4 %; Eosinophils # 0.2 K/mcL (0.0-0.6); Eosinophils % 4.6 %; Hematocrit 37.8 % (37.5-50.1); Immature Granulocytes % 0.4 % (0-4); Lymphocytes # 1.1 K/mcL (0.6-4.6); Lymphocytes % 23.4 %; Mean Corpuscular HGB Conc 34.4 g/dL (31.6-35.5); Mean Corpuscular Hemoglobin 29.8 pg (28.0-33.3); Mean Corpuscular Volume 86.7 fL (83.0-100.0); Mean Platelet Volume 10.2 fL (9.4-12.4); Monocytes # 0.5 K/mcL (0.0-1.3); Monocytes % 10.9 %; Neutrophils # 2.9 K/mcL (1.6-8.9); Platelet Count 112 K/mcL (140-400); Red Blood Count 4.36 M/mcL (4.19-5.50); Red Cell Distribution Width 12.7 % (11.5-14.5); Segmented Neutrophils % 60.3 %
[2017-11-17 10:08] LABS: BUN/Creatinine Ratio 19 (6-26); Blood Urea Nitrogen 15 mg/dL (6-20); Calcium 9.3 mg/dL (8.6-10.3); Carbon Dioxide 25 mEq/L (23-29); Chloride 107 mEq/L (98-107); Glucose 98 mg/dL (70-105); Osmolality,Calculated 287 (280-300); Potassium 3.7 mEq/L (3.5-5.1); Sodium 138 mEq/L (136-145); eGFR For African Americans > 60 (> 60); eGFR For Non-African Americans > 60 (> 60)
[2017-11-17] MEDS ORDERED: Heparin 1,000 UNITS/500 mL 500 ML ONE (13:35)
[2017-11-17] MEDS ORDERED: ISOVUE-370 200 ML INFUS..BTL IV ONE (13:35)
[2017-11-17] MEDS ORDERED: *HR* Heparin 10,000 UNIT/10 ML VIAL ONE (13:35)
[2017-11-17] MEDS ORDERED: Nitroglycerin 1,000 MCG/10 ML VIAL IV ONE (13:35)
[2017-11-17] MEDS ORDERED: 0.9 % Sodium Chloride 1,000 ML ONE ×2 (13:35→13:59)
[2017-11-17] MEDS ORDERED: *HR* Midazolam HCl 2 MG/2 ML VIAL ONE ×2 (14:06→14:27)
--- NOTE | 2017-11-17 14:09 | Pre-Sedation Evaluation ---
Pre-sedation evaluation - Pre-sedation checklist Date of procedure: 11/17/17 Procedure: heart cat Recent Vitals: Last Vital Signs Temp 98.3 F 11/17/17 11:17 Pulse 54 11/17/17 11:17 Resp 16 11/17/17 11:17 BP 138/83 11/17/17 11:17 Pulse Ox 98 11/17/17 11:17 H&P (including ROS) documented in medical record: Yes Previous reaction to sedatives/anesthetics: No Dietary Status: NPO after Midnight Airway Assessment: Patient can open mouth completely, TMJ function normal Dentition: dentures removed Possible difficult airway: No ASA Classification *see protocol: CLASS IV-Severe systemic disease/constant threat to pt's life Plan of Care: Pt appropriate candidate for procedure/moderate/conscious sedation , Risks/benefits of procedure/sedation discussed w/ patient/family, If not NPO; Risk of intake outweiged by necessity to perform procedure Cardiac Registry (Cardio Only) - Functional Capacity Functional Capacity: >=4 METS with symptoms - Clincal Frailty Scale Clinical Frailty Scale: Managing Well
[2017-11-17] MEDS ORDERED: Nitroglycerin Spray 4.9 GM BOTTLE ONE (14:34)
--- NOTE | 2017-11-17 15:44 | Invasive Diagnostic Lab Proc ---
Name: Devante Carrilol Date of Study: 11/17/2017 Date: 1960 Ht: 68.9in Medical Record#: [id number] Age: 57 Wt: 209.44lb Gender: Male BSA: 2.1 Order #: [id number] BMI: 31.02 Physicians Procedure Physician: Rafat Barajas DO Referring MD: Referring MD: Staff Name Position Time In Jenise Elaine RT (R) Scrub 02:03 PM Terrance Jett RN Automatic Presser 02:04 PM Haley Mathews RT Monitor 02:04 PM Indications Indication Abnormal Test - Stress Procedures Performed Procedure L HRT ARTERY/VENTRICLE ANGIO Pre-Procedure Checklist Informed consent is complete signed and on chart. H&P is on chart. ID band is on and ID verified with patient. Patient NPO for procedure The procedure was described for the patient and questions were answered. Blood Pressure: 193/104 ECG is on chart. Rhythm: NSR Plan of Care Patient will tolerate the procedure without complications. Adequate level of comfort will be maintained. Hemodynamics will remain stable Patient will recover from procedure without complications. Respiratory function will be maintained. Cardiac rhythm will remain stable. Patient temperature will be maintained. Patient and/or family have verbalized understanding of the procedure. Patient Education Chief Complaint/Reason for Test: Cardiac Cath Developmental Category: Adult (18-64 years) Developmentally Appropriate for Age: Yes Learning Barriers: None Education Needs: Procedure Education Method: Verbal Information Taught: Cardiac Cath Educational Evaluation: Able to repeat information Intravenous Access Time IV Size Location DC'd Fluid/Drip Rate Units RN 18g 1 /" Patent On Arrival Rt Arm No 0.9NaCl 25 ml/hr Allergies NONE KNOWN No Known Allergies Vital Signs Time BP (mmHg) HR (bpm) O2 Sat. RR (bpm) LOC 148 / 81 61 97 % 14 02:05 PM / % 5 = Fully awake and oriented or at pre-proc level 02:05 PM / % 4 = Oriented but drowsy 02:20 PM / % 4 = Oriented but drowsy 02:11 PM 193 / 104 63 100 % 12 02:23 PM 153 / 91 55 100 % 13 02:29 PM 168 / 87 57 100 % 16 02:33 PM 152 / 83 61 99 % 12 02:45 PM 153 / 91 61 98 % 13 5 = Fully awake and oriented or at pre-proc level 03:14 PM 161 / 84 53 98 % Procedural Medications Time Medication Dose Units Method Given By 02:04 PM Oxygen 2 L/min nasal cannula Terrance Jett RN 02:14 PM Versed 2 mg Intravenous Terrance Jett RN 02:24 PM Lidocaine 2% 10 ml Subcutaneous Rafat Barajas DO 02:26 PM Versed 1 mg Intravenous Terrance Jett RN 02:34 PM Nitroglycerin 400 mcg Sublingual Terrance Jett RN ASA Classification: CLASS IV- Severe systemic that is constant threat to patient's life Latanya Score Preprocedure Postprocedure Activity 2- Moves 4 extremities sustained head lift Activity 2- Moves 4 extremities sustained head lift Circulation 2- SBP +/= 20 points of pre-anesthetic level Circulation 2- SBP +/= 20 points of pre-anesthetic level Consciousness 2- Awake and alert oriented x 3 Consciousness 2- Awake and alert oriented x 3 O2 Saturation 2- Able to maintain O2 satruation of 92% on room air O2 Saturation 2- Able to maintain O2 satruation of 92% on room air Respiratory 2- Able to deep breathe and cough well Respiratory 2- Able to deep breathe and cough well Total Score 10 Total Score 10 Contrast Agent: Isovue Diagnostic Contrast: 75 ml Total Contrast: 75 ml Fluoro Dose: 51 mGy Procedure Log Time Note Enter By 02:03 PM Pt arrived to laboratory inspector 1 at 14:03 02:04 PM Jenise Elaine RT (R) Position: Scrub Time in: 14: 02:04 PM Terrance Jett RN Position: Automatic Presser Time in: 14: 02:04 PM Haley Mathews Position: Monitor Time in: 14: 02:04 PM Patient charges- Angio tray pack, Navilyst 3mm J, Pulse Oximetry and ACIST tubing and transducer kk 02:04 PM Case Delayed No 02:04 PM Hair removed from procedure site in procedure lab using clippers. Bilateral groin prepped with Chloraprep by Haley Mathews RT, then patient was draped. Skin intact. kkall 02:04 PM Physician arrived 14:04 kkallner 02:04 PM ASA Class CLASS II- Mild systemic disease (i.e. well-controlled diabetes, hypertension, asthma, cigarette smoking) kkallner 02:04 PM Meet and leyla completed kk 02:04 PM Sign in performed according to hospital policy. kk 02:04 PM Procedure start 14:04 kk 02:05 PM Time: 14:04 Oxygen on at 2 L/min per nasal cannula by Terrance Jett RN karla 02:05 PM Time: 14:05 Patient comfortable and pain free: Yes kk 02:05 PM Time: 14:05LOC: 5 = Fully awake and oriented or at pre-proc level kkallner 02:09 PM NIBP STAT measurement started. 02:11 PM HR=63 bpm, BFMB=971/104 mmhg, HdK2=979 %, Resp=12 B/min 02:14 PM Time: 14:14 Versed 2 mg Intravenous Given by Terrance Jett RN 02:14 PM Clinical Presentation: Unstable angina kkall 02:18 PM Pressure channel 2 zeroed. 02:19 PM ASA Class CLASS IV- Severe systemic that is constant threat to patient's life kkall:20 PM Time: 14:05LOC: 4 = Oriented but drowsy kkall 02:20 PM Time: 14:05 Patient comfortable and pain free: Yes kk:22 PM Time out performed according to hospital policy kk: PM Vitals capture started with the following parameters, Patient=Adult, Interval=5 min, Initial Sgljcdli=851 mmHg, Deflation Rate=3 mmHg, Cuff placed on Right Arm 02:23 PM HR=55 bpm, ERYR=337/91 mmhg, IkY2=322.0 %, Resp=13 B/min 02:24 PM Time: 14:24 10 ml Lidocaine 2% to right groin Subcutaneous Given by Rafat Barajas DO kk 02: PM Micro-Introducer Kit utilized for sheath placement kkallner 02: PM Access obtained by percutaneous puncture. 6Fr 10cm Terumo [place] sheath placed in right Femoral artery. [id number] : PM Time: 14:26 Versed 1 mg Intravenous Given by Terrance Jett RN 02:27 PM 6Fr FR 4 catheter inserted over the wire [facility] 02:28 PM Recorded Pressure: LV, HR=65, Condition=Condition 1 (Left Ventricle) LV 158/1/6 02:28 PM Recorded Pressure: LV, Ao, HR=56, Condition=Condition 1 (Left Ventricle) LV 172/2/8, (Aorta) Ao 188/39/111 02:29 PM Catheter selectively placed in left ventricle kkallner 02:29 PM Bolus angiogram of left Ventricle complete: hand injection kkallner 02:29 PM catheter placed into RCA kkallner 02:29 PM HR=57 bpm, TFLZ=448/87 mmhg, TwF5=807.0 %, Resp=16 B/min 02:29 PM RCA angiography performed in multiple views. kkallner 02:29 PM Recorded Pressure: Ao, HR=53, Condition=Condition 1 (Aorta) Ao 170/74/106 02:29 PM Catheter removed kkallner 02:30 PM 6Fr FL 4 catheter inserted over the wire DNC kkall 02:30 PM LCA angiography performed in multiple views. kkallner 02:31 PM Recorded Pressure: Ao, HR=64, Condition=Condition 1 (Aorta) Ao 155/72/101 02:32 PM Recorded Pressure: Ao, HR=59, Condition=Condition 1 (Aorta) Ao 160/72/101 02:32 PM catheter removed kkallner 02:32 PM Bolus angiogram of right Femoral complete: hand injection kkallner 02:33 PM HR=61 bpm, NULR=927/83 mmhg, SpO2=99.0 %, Resp=12 B/min 02:35 PM Time: 14:34 Nitroglycerin 400 mcg Sublingual Given by Terrance Jett RN 02:35 PM Time: 14:20 Patient comfortable and pain free: Yes :35 PM Time: 14:20LOC: 4 = Oriented but drowsy kkallner 02:36 PM Coronary Dominance: right kkallner 02:37 PM Procedure completed at 14:37 11/17/2017 kkallner 02:37 PM Did you address [place] flow and Dominance? Yes kkallner 02:38 PM Sign out completed: Radiation Dose 408.76 mGy, 50.61 Gy/cm2 Fluoro Time: 1.2 Isovue 370 - 200ml contrast 75 ml given by Rafat Barajas DO. Complications: NoneCardiac Rehab Consult needed: YesConfirmed administered medications: Yes kkallner 02:38 PM Isovue 370 - 200ml,1 Bottle(s) used. kkallner 02:38 PM Sheath left in place to be pulled on floor/holding area kkallner 02:38 PM Estimated Blood Loss: minimal kkallner 02:38 PM Post ECG NSR kkallner 02:38 PM Post Blood Pressure 152/83 kkallner 02:39 PM 14:38 Post Pulses Bilateral DP & PT 1+ kkallner 02:39 PM Information taught Cardiac Cath and Mynx kkall:39 PM Education needs Procedure, Plan of Care, and Responsibilities of Patient in Care kk:39 PM Learning barriers :None kkall:39 PM Education Methods Verbal kkall:39 PM Education evaluation Able to repeat information kkall:39 PM Site status No bleeding/hematoma - Rt Groin as reported by Jenise Elaine RT (R) at 14:39 kkallner 02:39 PM Opsite applied kkallner 02:41 PM Report given to Idalia ROSE Pt taken to 2A Room #48. 14:39 kkallner 02:41 PM Plavix, Effient or Brilinta given No kkallner 02:41 PM Delay to floor No kkallner 02:41 PM Patient out of room: 14:41 kkallner 02:41 PM Family placed in consult room. kkallner 02:41 PM Complications: None kkallner 02:41 PM Conversation between Interventionalist and CT Surgeon. kkallner 02:58 PM Arterial sheath pulled, Sterile 4x4 closure device used and was Successful S/N. pressure held for 20 minutes thenthorne 03:34 PM Left Main Coronary Artery with 0% stenosis kkallner 03:34 PM Proximal Left Anterior Descending Coronary Artery with 70% stenosis. If graft is supplying this territory, 0 % stenosis. kkallner 03:34 PM Mid/Distal Left Anterior Descending Coronary Artery and diagonal branches with 85% stenosis. If graft is supplying this area, 0 % stenosis kkallner 03:34 PM Circumflex, Obtuse Marginal, Left Posterior Descending, and Left Posterolateral Coronary Arteries with 90 % stenosis. If graft is supplying this area, 0 % stenosis kkallner 03:34 PM Right Coronary, Right Posterior Descending Arteries with Right Posterolateral and Acute Marginal branches with 80 % stenosis. If graft is supplying this area, 0 % stenosis kkallner 03:34 PM Ramus with 0% stenosis. If graft is supplying this area, 0 % stenosis sil Complications Complication None None Hemodynamics Pressures Site Systolic/A Wave Diastolic/V Wave Mean LV 158 1 6 LV 172 2 8 AO 188 39 111 AO 170 74 106 AO 155 72 101 AO 160 72 101 Post Procedure Information Blood Pressure: 152/83 mmHg Rhythm: NSR Post procedural instructions were given Surgery consult for CABG Site Checks Time Location Status Staff Sheath In? Note 02:39 PM Rt Groin No bleeding/hematoma Jenise Elaine RT (R) Yes 02:45 PM Rt Groin No bleeding/ No Hematoma Jenise Elaine RT (R) Yes 03:13 PM Rt Groin No bleeding/ No Hematoma Terrance Jett RN Pulses Time Site Pre-Procedure Post-Procedure Note Bilateral radial 2+ Bilateral DP 1+ 2:38:00 PM Bilateral DP & PT 1+ 11/17/2017 3:13:00 PM Bilateral DP & PT 1+ Updated by Haley Mathews RT (R) on 11/17/2017 3:36:05 PM electronically signed on 11/17/2017 3:36:26 PM with status of Final
--- NOTE | 2017-11-17 16:37 | Cardiothoracic Consult Note ---
Date of Encounter: 11/17/17 Time of Encounter: 16:32 Assessment and Plan (1) Chest pain Current Visit: Yes Status: Acute The patient is a 57-year-old type II diabetic, hypertensive man with hypercholesterolemia who was admitted to [facility] with unstable angina. The patient underwent a transthoracic echocardiogram which fills an LVEF 55-60% with normal left ventricular function. No significant valvular dysfunction was noted. A nuclear stress test revealed basal and inferolateral ischemia. Subsequent cardiac catheterization revealed severe 3 vessel CAD; however, the arteries were extremely small and diffusely diseased. He will bypassable targets or identified. I do not believe that the patient is an operative candidate and should be treated medically with stent placement if possible. This was discussed with the patient's fairing man, Dr. Rafat Barajas. The assessment and plan as outlined above was discussed with the patient and/or family members who expressed understanding and agreement. All questions were answered. Qualifiers: Chest pain type: chest pain due to myocardial ischemia Ischemic chest pain type: unspecified angina pectoris type Qualified Code(s): I25.9 - Chronic ischemic heart disease, unspecified - History of Present Illness Consult date: 11/17/17 Requesting physician: Rafat Barajas Consult reason: CABG evaluation Chief complaint: NSTEMI History of present illness: Mr. Carrillo is a 57 year old type II diabetic, hypertensive man with hypercholesterolemia who was transferred to [facility] from [facility] with a diagnosis of an acute NSTEMI. The patient denies any substernal chest pain until the morning of admission on 11/15/2017. The patient had right subscapular pain radiating to his right precordial region and associated shortness of breath and diaphoresis while at work. 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 The patient initially rested with resolution of his pain; however, when he began working again the pain would recur. The patient was transported to [facility] and treated medically before transfer to [facility] for further cardiac care. The patient underwent a transthoracic echocardiogram which revealed an LVEF 60% with normal left ventricular chamber size, wall thickness, and function. No significant valvular dysfunction was noted. A nuclear stress test revealed an LVEF 50% with a small sized mild intensity reversible basal inferior lateral defect suggestive of ischemia. Subsequent cardiac catheterization revealed diffuse and severe 3 vessel disease and small sized coronary arteries. I been asked to evaluate the patient for possible CABG. Past Med Surg Social Fam HX - Past Medical History Medical history: arthritis, COPD, coronary artery disease, CVA, diabetes, GERD, hyperlipidemia, hypertension, syncope, TIA, other Additional medical history: [place] Psychiatric history: no psych history - Past Surgical History Surgical History: appendectomy, other (Left knee arthroscopy) Additional surgical history: LEFT KNEE SURGERY - Social History Smoking Status: Current every day smoker Packs per day: 0.5PPD x 40 YRS Smokeless Tobacco Status: No Alcohol use: none Drug use: none Occupational status: employed Current living situation: Home - Independent Activity Level: Independent ambulation Recent Out of Country Travel Within the Last 8 Weeks: No Exposure or Possible Exposure to Illness During Travel: No - Family History Mother Adopted: No Living Status: Hx Family Cardiac Disorders: No Hx Family Respiratory Disorders: No Hx Family Cancer: Yes (BREAST CANCER) Hx Family GI Disorders: No Hx Family Endocrine Disorder: No Hx Family Neuromuscular Disorders: No Hx Family Neurologic Disorders: No Hx Family HEENT Disorders: No Hx Family Autoimmune Disorders: No Son Adopted: No Medications and Allergies Aspirin 81 mg PO DAILY 10/18/16 [History] Gabapentin [Neurontin] 600 mg PO QID 10/18/16 [History] Omeprazole [PriLOSEC] 20 mg PO DAILY 10/18/16 [History] Carvedilol [Coreg] 25 mg PO BID 11/15/17 [History] Ibuprofen [Ibuprofen] 800 mg PO TID PRN 11/15/17 [History] Lisinopril [Zestril] 20 mg PO DAILY 11/15/17 [History] Metformin HCl [Metformin HCl] 1,000 mg PO BID 11/15/17 [History] 3 Allergy/AdvReac Type Severity Reaction Status Date / Time No Known Allergies Allergy Verified 11/14/17 21:44 All Systems Review: The remainder of the systems were reviewed and are negative Physical Examination Vital Signs, Last 4 Hours Temp Pulse Resp BP Pulse Ox 11/17/17 16:22 98.0 F 57 17 145/86 99 11/17/17 15:49 74 16 160/76 99 11/17/17 15:30 68 16 165/98 11/17/17 15:15 98.2 F 55 16 143/86 100 General: Conversant, No Apparent Distress HEENT: Atraumatic, Normocephaly, Trachea midline Neck: No JVD, Normal carotid pulses Cardiac: Reg Rate and Rhythm, Normal S1 and S2, No Murmur Lungs: Normal Breath Sounds, No Wheeze, Rales, Rhonchi Neuro: Alert and responsive, Other (Residual left lower extremity weakness secondary to CVA) Vascular: Normal capillary refill Abdomen: Soft, Non-tender Skin: No rashes noted on visualized skin Musculoskeletal: No Chest Wall Tenderness Extremities: No Clubbing, No Cyanosis, No Edema Results 11/17/17 09:36 18 09:36 Lab Results, Last 24 hours 11/17/17 07 09:36 09:36 WBC 4.8 Hgb 13.0 Hct 37.8 Plt Count 112 L Sodium 138 Potassium 3.7 Chloride 107 Carbon Dioxide 25 BUN 15 Creatinine 0.79 Glucose 98 Calcium 9.3 Consult Discharge Plan - Plan Referrals: Xavier Thomas MD [Primary Care Provider] -
[2017-11-17] MEDS: 0.9 % Sodium Chloride 1,000 ML IVC SCH (17:02)
--- NOTE | 2017-11-17 17:49 | Internal Med Progress Note ---
Date of Encounter: 11/17/17 Time of Encounter: 17:49 - Assessment and plan (1) Chest pain Current Visit: Yes Status: Acute Assessment and plan: improved now; Telemetry and serial Troponins negative for ACS; initial EKG and chest XRay were normal; Lipid profile noted, mildly elevated TG and LDL-cholesterol; continue ASA, statin and beta kenisha; nuclear stress test is abnormal with Small sized, mild intensity, reversible basal inferolateral defect suggestive of ischemia. Echo showed preserved EF, mild concentric LVH; Cardiology consulted, [facility] done, apparently showed 3-vessel disease, recommend CABG consult; CT surgery evaluated- patient is not an operative candidate, recommend possible stent placement and angioplasty; d/w Cardiology- recommend Plavix and nitrates, pending revealuation; explained to the patient, risks of being discharged today given his significant CAD; agreeable to stay tonight; Qualifiers: Chest pain type: chest pain due to myocardial ischemia Ischemic chest pain type: unspecified angina pectoris type Qualified Code(s): I25.9 - Chronic ischemic heart disease, unspecified (2) HTN (hypertension) Current Visit: Yes Status: Chronic Assessment and plan: BP acceptable; continue home meds; Qualifiers: Hypertension type: essential hypertension Qualified Code(s): I10 - Essential (primary) hypertension (3) GERD (gastroesophageal reflux disease) Current Visit: Yes Status: Chronic Qualifiers: Esophagitis presence: esophagitis presence not specified Qualified Code(s) : K21.9 - Gastro-esophageal reflux disease without esophagitis (4) Diabetes mellitus Current Visit: Yes Status: Chronic Assessment and plan: blood sugars well-controlled; A1C 6.2%; continue Accucheck blood glucose monitoring with SSI as needed; diabetic diet; Qualifiers: Diabetes mellitus type: type 2 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 today; awaiting CT surgery consult; - Constitutional Vitals: Temp Pulse Resp BP Pulse Ox 98.0 F 57 17 145/86 99 11/17/17 16:22 11/17/17 16:22 11/17/17 16:22 11/17/17 16:22 11/17/17 16:22 General appearance: Present: A&O X 3, answers questions appropriately - Respiratory Respiratory exam: Present: CTAB. Absent: accessory muscle use, rales, rhonchi, wheezes - Cardiovascular Cardiovascular exam: Present: RRR, +S1, +S2. Absent: diastolic murmur, gallop, rubs, systolic murmur - GI/Abdominal GI/Abdominal exam: Present: normal bowel sounds, soft, no peritoneal signs. Absent: distended, tenderness - Extremities Exam Extremities exam: Present: full ROM, warm, radial pulses palpable and symmetrical. Absent: calf tenderness, cyanotic, pedal edema Internal Medicine: Result - Labs CBC & Chem 7: 11/17/17 09:36 11/17/17 09:36 Labs: Short CBC 11/17/17 Range/Units 09:36 WBC 4.8 (4.3-11.1) K/mcL Hgb 13.0 (12.9-16.9) g/dL Hct 37.8 (37.5-50.1) % Plt Count 112 L (140-400) K/mcL Neutrophils # 2.9 (1.6-8.9) K/mcL BMP 11/17/17 09:36 Sodium 138 Potassium 3.7 Chloride 107 Carbon Dioxide 25 BUN 15 Creatinine 0.79 Glucose 98 Calcium 9.3 Consult Discharge Plan - Plan Referrals: Xavier Thomas MD [Primary Care Provider] -
[2017-11-17] MEDS: Acetaminophen 325 MG TABLET PO PRN (20:46)
[2017-11-18] MEDS: 0.9 % Sodium Chloride 1,000 ML IVC SCH ×2 (02:01→23:34)
--- NOTE | 2017-11-18 08:25 | Pre-Sedation Evaluation ---
Pre-sedation evaluation - Pre-sedation checklist Date of procedure: 11/17/17 Procedure: multivessel PCI w rotablator and Impella LVAD support Recent Vitals: Last Vital Signs Temp 98.9 F 11/18/17 07:17 Pulse 55 11/18/17 07:17 Resp 18 11/18/17 07:17 BP 135/80 11/18/17 07:17 Pulse Ox 98 11/18/17 07:17 H&P (including ROS) documented in medical record: Yes Previous reaction to sedatives/anesthetics: No Dietary Status: NPO after Midnight Dentition: dentures removed ASA Classification *see protocol: CLASS II-Mild systemic disease Plan of Care: Pt appropriate candidate for procedure/moderate/conscious sedation , Risks/benefits of procedure/sedation discussed w/ patient/family Cardiac Registry (Cardio Only) - Functional Capacity Functional Capacity: >=4 METS with symptoms - Clincal Frailty Scale Clinical Frailty Scale: Managing Well
--- NOTE | 2017-11-18 08:29 | Event Note ---
Date of Encounter: 11/18/17 Time of Encounter: 08:30 - Cardiology Event Note Mr. Devante Carrillo is a 57yoM w ACS/USA with C yesterday and findings of severe 3 vessel coronary artery disease - calcified - referred for CABG but deemed unsuitable for surgery due to poor distal target in LAD. Discussed options with patient including medical management versus high risk multivessel PCI ( proximal LAD, proximal LCx, OM, mid RCA) with Impella support for protected PCI +/- rotablator of calcified circumflex if does not respond to first PTCA.
[2017-11-18] MEDS: Isosorbide MONOnitrate (24 HR) 30 MG TAB.ER.24H PO SCH (08:31)
[2017-11-18] MEDS: Gabapentin 300 MG CAPSULE PO SCH ×4 (08:31→22:39)
[2017-11-18] MEDS: Aspirin 81 MG TAB.CHEW PO SCH (08:31)
[2017-11-18] MEDS: Insulin LISPRO 300 UNITS/3 ML VIAL SQ SCH ×4 (08:32→21:36)
[2017-11-18 09:26] LABS: BUN/Creatinine Ratio 23 (6-26); Blood Urea Nitrogen 17 mg/dL (6-20); Calcium 9.2 mg/dL (8.6-10.3); Carbon Dioxide 24 mEq/L (23-29); Chloride 108 mEq/L (98-107); Glucose 109 mg/dL (70-105); Osmolality,Calculated 290 (280-300); Potassium 3.8 mEq/L (3.5-5.1); Sodium 139 mEq/L (136-145); eGFR For African Americans > 60 (> 60); eGFR For Non-African Americans > 60 (> 60)
[2017-11-18] MEDS ORDERED: Heparin 1,000 UNITS/500 mL 500 ML ONE ×3 (13:50→16:50)
[2017-11-18] MEDS ORDERED: 0.9 % Sodium Chloride 1,000 ML ONE ×2 (13:50→14:09)
[2017-11-18] MEDS ORDERED: D5% in Water 250 ML ONE (13:51)
[2017-11-18] MEDS ORDERED: *HR* Heparin 10,000 UNIT/10 ML VIAL ONE ×2 (13:51→14:10)
[2017-11-18] MEDS ORDERED: ISOVUE-370 200 ML INFUS..BTL IV ONE ×3 (13:51→17:14)
[2017-11-18] MEDS ORDERED: Nitroglycerin 1,000 MCG/10 ML VIAL IV ONE ×2 (13:52→14:10)
[2017-11-18] MEDS ORDERED: Verapamil 5 MG/2 ML VIAL ONE ×3 (14:09→14:39)
[2017-11-18] MEDS ORDERED: *HR* FentaNYL (PF) 100 MCG/2 ML VIAL ONE ×2 (14:28→17:14)
[2017-11-18] MEDS ORDERED: *HR* Midazolam HCl 5 MG/5 ML VIAL IVP ONE (14:29)
--- NOTE | 2017-11-18 15:42 | Internal Med Progress Note ---
Date of Encounter: 11/18/17 Time of Encounter: 09:45 - Assessment and plan (1) Chest pain Current Visit: Yes Status: Acute Assessment and plan: improved now; Telemetry and serial Troponins negative for ACS; continue ASA, Plavix, Imdur, statin and beta kenisha; nuclear stress test is abnormal with Small sized, mild intensity, reversible basal inferolateral defect suggestive of ischemia. Echo showed preserved EF, mild concentric LVH; Cardiology consulted, LHC done, apparently showed 3-vessel disease, recommend CABG consult; CT surgery evaluated- patient is not an operative candidate, recommend possible stent placement and angioplasty; Cardiology reevaluation appreciated, plan for high risk PCI/PTCA today. High risk for complications. Qualifiers: Chest pain type: chest pain due to myocardial ischemia Ischemic chest pain type: unspecified angina pectoris type Qualified Code(s): I25.9 - Chronic ischemic heart disease, unspecified (2) HTN (hypertension) Current Visit: Yes Status: Chronic Assessment and plan: BP well controlled; continue home meds; Qualifiers: Hypertension type: essential hypertension Qualified Code(s): I10 - Essential (primary) hypertension (3) GERD (gastroesophageal reflux disease) Current Visit: Yes Status: Chronic Qualifiers: Esophagitis presence: esophagitis presence not specified Qualified Code(s) : K21.9 - Gastro-esophageal reflux disease without esophagitis (4) Diabetes mellitus Current Visit: Yes Status: Chronic Assessment and plan: blood sugars well-controlled; A1C 6.2%; continue Accucheck blood glucose monitoring with SSI as needed; diabetic diet; Qualifiers: Diabetes mellitus type: type 2 Diabetes mellitus watermelon inspector insulin use: without half-way use Diabetes mellitus complication status: with unspecified complications Qualified Code(s): E11.8 - Type 2 diabetes mellitus with unspecified complications (5) History of CVA with residual deficit Current Visit: Yes Status: Chronic (6) DVT prophylaxis Current Visit: Yes Status: Acute (7) Tobacco abuse Current Visit: Yes Status: Chronic - Time Spent With Patient Total time spent is greater than 50% in coordination of care (as documented) at patient's floor/unit and/or counseling patient: - Subjective Interval history: Denies chest pain, shortness of breath; awaiting LHC/PTCA today; - Constitutional Vitals: Temp Pulse Resp BP Pulse Ox 98.7 F 50 18 109/71 96 11/18/17 11:10 07/13/18 11:10 11/18/17 11:10 11/18/17 11:10 11/18/17 11:10 General appearance: Present: A&O X 3, answers questions appropriately - Respiratory Respiratory exam: Present: CTAB. Absent: accessory muscle use, rales, rhonchi, wheezes - Cardiovascular Cardiovascular exam: Present: RRR, +S1, +S2. Absent: diastolic murmur, gallop, rubs, systolic murmur - GI/Abdominal GI/Abdominal exam: Present: normal bowel sounds, soft, no peritoneal signs. Absent: distended, tenderness - Extremities Exam Extremities exam: Present: full ROM, warm, radial pulses palpable and symmetrical. Absent: calf tenderness, cyanotic, pedal edema Internal Medicine: Result - Labs CBC & Chem 7: 11/17/17 09:36 11/18/17 08:26 Labs: BMP 11/18/17 08:26 Sodium 139 Potassium 3.8 Chloride 108 H Carbon Dioxide 24 BUN 17 Creatinine 0.73 Glucose 109 H Calcium 9.2 Consult Discharge Plan - Plan Referrals: Xavier Thomas MD [Primary Care Provider] -
[2017-11-18] MEDS ORDERED: Lidocaine/EPI 1:100k 1% 30 ML VIAL ONE (17:49)
[2017-11-18] MEDS ORDERED: Ondansetron 4 MG/2 ML VIAL IVP PRN (18:25)
[2017-11-18] MEDS ORDERED: Tirofiban 12.5 MG/250ML 12.5 MG/250 ML BAG IVC SCH (18:30)
--- NOTE | 2017-11-18 18:52 | Invasive Diagnostic Lab Proc ---
Name: Devante Carrillo Date of Study: 11/18/2017 Date: 1960 Ht: 68.9in Medical Record#: [id number] Age: 57 Wt: 210.10lb Gender: Male BSA: 2.11 Order #: [id number] BMI: 31.12 Physicians Procedure Physician: Sam Burrows MD, [facility] Referring MD: Referring MD: Staff Name Position Time In Martha Olson RT (R) Scrub 02:17 PM CheleJenise RT (R) Monitor 02:17 PM Emily Alba RN Family Sociologist 02:17 PM Renae Patel RN Family Sociologist 02:17 PM Indications Indication Unstable Angina Procedures Performed Procedure CORONARY ARTERY ANGIO S&I PRQ CARD SCOT STENT W/ANGIO 1 VSL PRQ CARD SCOT STENT W/ANGIO 1 VSL PRQ CARD SCOT STENT W/ANGIO 1 VSL PRQ CARDIAC ANGIO ADDL ART Pre-Procedure Checklist Informed consent is complete signed and on chart. H&P is on chart. ID band is on and ID verified with patient. Patient NPO for procedure The procedure was described for the patient and questions were answered. Blood Pressure: 153/78 ECG is on chart. Rhythm: NSR Plan of Care Patient will tolerate the procedure without complications. Adequate level of comfort will be maintained. Hemodynamics will remain stable Patient will recover from procedure without complications. Respiratory function will be maintained. Cardiac rhythm will remain stable. Patient temperature will be maintained. Patient and/or family have verbalized understanding of the procedure. Patient Education Chief Complaint/Reason for Test: Rotablator Developmental Category: Geriatric (65+ years) Developmentally Appropriate for Age: Yes Learning Barriers: None Education Needs: Procedure Education Method: Verbal Information Taught: Rotablator Educational Evaluation: Able to repeat information Intravenous Access Time IV Size Location DC'd Fluid/Drip Rate Units RN 02:12 PM 18g 1 1/4" Patent On Arrival Rt Arm 0.9NaCl 25 ml/hr Emily Alba RN Started with 18g needle 1 1/4" Lt Arm Emily Alba RN Allergies No Known Allergies Vital Signs Time BP (mmHg) HR (bpm) O2 Sat. RR (bpm) LOC 02:20 PM / % 5 = Fully awake and oriented or at pre-proc level 02:20 PM / % 4 = Oriented but drowsy 02:35 PM / % 4 = Oriented but drowsy 02:50 PM / % 4 = Oriented but drowsy 03:05 PM / % 4 = Oriented but drowsy 02:29 PM 153 / 78 60 100 % 14 02:33 PM 157 / 77 59 100 % 9 02:38 PM 149 / 67 61 96 % 19 02:43 PM 120 / 63 71 99 % 17 02:48 PM 124 / 68 57 95 % 16 02:53 PM 117 / 62 57 95 % 15 02:58 PM 115 / 64 59 95 % 16 03:03 PM 97 / 61 79 92 % 17 03:09 PM 107 / 67 58 96 % 17 03:13 PM 97 / 51 64 98 % 16 03:18 PM 92 / 48 60 96 % 16 03:24 PM 107 / 62 61 93 % 16 03:29 PM 134 / 68 55 95 % 14 03:33 PM 138 / 74 54 96 % 14 03:38 PM 145 / 76 51 98 % 14 03:43 PM 125 / 75 54 100 % 12 03:48 PM 139 / 79 54 97 % 14 04:44 PM 173 / 89 50 100 % 14 04:48 PM 169 / 80 63 100 % 16 04:54 PM 163 / 87 53 99 % 13 04:58 PM 176 / 83 52 100 % 15 05:03 PM 148 / 86 60 99 % 14 05:09 PM 164 / 91 49 99 % 16 05:13 PM 159 / 88 48 99 % 18 05:19 PM 174 / 96 43 98 % 14 05:23 PM 163 / 91 49 94 % 15 05:29 PM 178 / 94 51 99 % 15 03:53 PM 151 / 79 51 99 % 15 03:59 PM 129 / 78 52 98 % 14 04:03 PM 138 / 76 61 98 % 15 04:08 PM 137 / 69 53 98 % 14 04:13 PM 137 / 73 55 99 % 14 04:18 PM 137 / 78 50 98 % 15 04:23 PM 145 / 82 52 98 % 14 04:28 PM 157 / 85 51 99 % 16 04:33 PM 125 / 76 54 99 % 14 04:39 PM 142 / 86 49 99 % 15 05:34 PM 171 / 84 51 99 % 13 05:38 PM 147 / 83 57 97 % 10 05:44 PM 190 / 99 61 99 % 12 05:48 PM 175 / 93 50 98 % 12 05:54 PM 170 / 93 48 100 % 20 05:59 PM 179 / 88 49 100 % 20 Procedural Medications Time Medication Dose Units Method Given By 02:31 PM Oxygen 2 L/min nasal cannula Renae Patel RN 02:31 PM Versed 2 mg Intravenous Renae Patel RN 02:32 PM Fentanyl 50 mcg Intravenous Renae Patel RN 02:39 PM Lidocaine 2% 0.5 ml Subcutaneous Sam Burrows MD 02:40 PM Lidocaine 2% 20 ml Subcutaneous Sam Burrows MD 02:44 PM Versed 2 mg Intravenous Renae Patel RN 02:44 PM Fentanyl 25 mcg Intravenous Renae Patel RN 03:02 PM Heparin 4000 units Nitroglycerin 200 mcg Verapamil 2.5 mg Intraarterial Sam Burrows MD, FACC 03:23 PM Nitroglycerin 200 mcg Intracoronary Sam Burrows MD 03:23 PM Heparin 3000 units Intravenous Sam Burrows MD 03:42 PM Versed 1 mg Intravenous Renae Patel RN 03:42 PM Fentanyl 25 mcg Intravenous Renae Patel RN 03:54 PM Aggrastat Bolus: 46 ml Intravenous Renae Patel RN 03:55 PM Aggrastat 12.5mg/250ml 16.5 ml/hr Intravenous Renae Patel RN 03:58 PM Heparin 2000 units Intravenous Renae Patel RN 04:28 PM Nitroglycerin 200 mcg Intracoronary Sam Burrows MD 04:37 PM Heparin 2000 units Intravenous Renae Patel RN 04:48 PM Nitroglycerin 200 mcg Intracoronary Sam Burrows MD 05:16 PM Heparin 2000 units Intravenous Sam Burrows MD 05:35 PM Nitroglycerin 100 mcg IntracoronSam Vora MD 05:15 PM Fentanyl 25 mcg Intravenous Renae Patel RN 05:42 PM Fentanyl 25 mcg Intravenous Renae Patel RN 05:51 PM Lidocaine 1% w/ epi 2 ml Subcutaneous Sam Burrows MD, FACC 05:52 PM Plavix 300 mg Orally Renae Patel RN ASA Classification: CLASS II- Mild systemic disease (i.e. well-controlled diabetes, hypertension, asthma, cigarette smoking) Latanya Score Preprocedure Postprocedure Activity 2- Moves 4 extremities sustained head lift Activity Circulation 2- SBP +/= 20 points of pre-anesthetic level Circulation Consciousness 2- Awake and alert oriented x 3 Consciousness O2 Saturation 2- Able to maintain O2 satruation of 92% on room air O2 Saturation Respiratory 2- Able to deep breathe and cough well Respiratory Total Score 10 Total Score Contrast Agent: Isovue Diagnostic Contrast: 287 ml Total Contrast: 287 ml Fluoro Dose: 76920 mGy Activated Clotting Time Time Seconds to Clot 03:58 PM 280 03:18 PM 186 04:36 PM 287 05:16 PM 245 Procedure Log Time Note Enter By 02:17 PM Pt arrived to [employer] 2 at 14:17 scoates 02:17 PM Martha Olson RT (R) Position: Scrub Time in: 14:17 scoates 02:17 PM Jenise Elaine RT (R) Position: Monitor Time in: 14:17 scoates 02:17 PM Emily Alba RN Position: Family Sociologist Time in: 14:17 scoates 02:17 PM Renae Patel RN Position: Family Sociologist Time in: 14:17 scoates 02:17 PM Patient charges- Angio tray pack, Navilyst 3mm J, Pulse Oximetry and ACIST tubing and transducer scoates 02:17 PM IV Supplies used: J loop Angio Cath. scoates 02:17 PM Case Delayed No scoates 02:18 PM Case Start 02:18 PM Physician arrived 14:18 scoates 02:18 PM Meet and greet completed scoates 02:18 PM Sign in performed according to hospital policy. scoates 02:18 PM Procedure start 14:18 scoates 02:18 PM 18 Ga IV started Left Forearm by Emily Alba RN scoates 02:20 PM Time: 14:20 Patient comfortable and pain free: Yes scoates 02:20 PM Time: 14:20LOC: 5 = Fully awake and oriented or at pre-proc level scoates 02:24 PM ASA Class CLASS II- Mild systemic disease (i.e. well-controlled diabetes, hypertension, asthma, cigarette smoking) dspellman 02:25 PM CathStat 02:25 PM Vitals capture started with the following parameters, Patient=Adult, Interval=5 min, Initial Ezywgtau=676 mmHg, Deflation Rate=5 mmHg, Cuff placed on Right Arm 02:27 PM Vitals capture started with the following parameters, Patient=Adult, Interval=5 min, Initial Hffpxtei=954 mmHg, Deflation Rate=5 mmHg, Cuff placed on Right Arm 02:29 PM HR=60 bpm, VYZH=509/78 mmhg, BmC7=256.0 %, Resp=14 B/min, Comment=NSR 02:31 PM Time: 14:31 Oxygen on at 2 L/min per nasal cannula by Renae Patel RN diane 02:32 PM Time: 14:31 Versed 2 mg Intravenous Given by Renae Patel RN diane 02:32 PM Time: 14:32 Fentanyl 50 mcg Intravenous Given by Renae Patel RN diane 02:33 PM HR=59 bpm, XUMC=095/77 mmhg, JzO9=825.0 %, Resp=9 B/min, Comment=NSR 02:35 PM Perfusion in lab to assist with Impella device.David Kenyon janki 02:35 PM Time: 14:20LOC: 4 = Oriented but drowsy 02:35 PM Time: 14:20 Patient comfortable and pain free: Yes 02:38 PM HR=61 bpm, ZMNS=795/67 mmhg, SpO2=96.0 %, Resp=19 B/min, Comment=NSR 02:39 PM Time out performed according to hospital policy 02:39 PM Time: 14:39 0.5 ml Lidocaine 2% to right radial Subcutaneous Given by Stormy diane 02:40 PM Time: 14:40 20 ml Lidocaine 2% to right groin Subcutaneous Given by Stormy diane 02:42 PM Access obtained by percutaneous puncture. Wire and needle removed, pressure held dsp 02:43 PM Access obtained by percutaneous puncture. 6Fr 10cm Terumo [place] sheath placed in right Femoral artery. [id number] 02:43 PM HR=71 bpm, HHOU=016/63 mmhg, SpO2=99.0 %, Resp=17 B/min, Comment=NSR 02:43 PM 5Fr Pigtail catheter inserted over the wire [facility] 02:44 PM Time: 14:44 Versed 2 mg Intravenous Given by Renae Patel RN diane 02:44 PM Time: 14:44 Fentanyl 25 mcg Intravenous Given by Renae Patel RN diane 02:46 PM Bolus angiogram of Abdominal aorta complete: 10 ml/sec for a total of 20 mls to confirm patency of femoral arteries dspell 02:48 PM HR=57 bpm, ZKBE=888/68 mmhg, SpO2=95.0 %, Resp=16 B/min, Comment=NSR 02:49 PM dspell 02:50 PM 6 Fr sheath removed, Perclose device advanced over the wire to right groin dspell 02:50 PM Time: 14:35LOC: 4 = Oriented but drowsy dspell 02:51 PM Two Perclose sutures placed at arteriotomy dspell 02:53 PM HR=57 bpm, WDCG=999/62 mmhg, SpO2=95.0 %, Resp=15 B/min, Comment=NSR 02:55 PM exchanging perclose device for 8 fr sheath dspell 02:57 PM sheath removed, access dilated up with 10, 12 dilator dspell 02:58 PM HR=59 bpm, TTRI=789/64 mmhg, SpO2=95.0 %, Resp=16 B/min, Comment=NSR 02:59 PM Sheath exchanged for a 14 Fr 13 cm Abiomed peel away sheath dspell 03:01 PM Access obtained by percutaneous puncture. 7Fr 10cm Terumo [place] sheath placed in right Radial artery. [id number] dspell 03:01 PM 0.035 260cm Navilyst 3mmJ wire [id number] dspell 03:02 PM Time: 15:02 Patient given 4,000 units Heparin, 200 mcg Nitroglycerin, and 2.5 mg Verapamil Intraarterial by Sam Burrows MD, [facility]. This is given to reduce risk of vessel spasm and thrombosis. dspell 03:02 PM Setting up for Impella placement dspell 03:03 PM 0.035 145cm Navilyst 3mmJ wire [id number] dspell 03:03 PM HR=79 bpm, NIBP=97/61 mmhg, SpO2=92.0 %, Resp=17 B/min, Comment=NSR 03:04 PM 5Fr Pigtail catheter inserted over the wire [facility] dspell 03:05 PM wire removed dspell 03:05 PM Time: 14:50LOC: 4 = Oriented but drowsy dspell 03:05 PM Time: 14:50 Patient comfortable and pain free: Yes dspell 03:06 PM Catheter selectively placed in left ventricle dspell 03:07 PM .018 Abiomed 260cm guide wire inserted through catheter. dspellman 03:08 PM Catheter removed dspell 03:09 PM HR=58 bpm, ASOK=355/67 mmhg, SpO2=96.0 %, Resp=17 B/min, Comment=NSR 03:11 PM Impella Catheter inserted over .018 wire. [id number]. *ACC* catheter inserted 05/09 dspell 03:11 PM Impella catheter inserted accrossed valve and position in left ventricle. .018 wire removed. Catheter attached to pump. dspell 03:13 PM Impella Pump started in auto. dspell 03:13 PM HR=64 bpm, NIBP=97/51 mmhg, SpO2=98.0 %, Resp=16 B/min, Comment=NSR 03:14 PM Recorded ECG: HR=63 Condition=Condition 1 03:15 PM 6Fr IR 2.0 Ikari Right guide catheter was used to cannulate the PCI vessel successfully. reused? No dspell 03:16 PM 0.035 145cm VSI Hollis-Torque wire [id number] dspell 03:17 PM Recorded Pressure: Ao, HR=58, Condition=Condition 1 (Aorta) Ao 118/68/89 03:17 PM ACT drawn dspell 03:18 PM HR=60 bpm, NIBP=92/48 mmhg, SpO2=96.0 %, Resp=16 B/min, Comment=NSR 03:18 PM Recorded Pressure: Ao, HR=59, Condition=Condition 1 (Aorta) Ao 133/79/101 03:19 PM Guide catheter removed intact. dspell 03:20 PM 6Fr RBL 3.5 Convey guide catheter was used to cannulate the PCI vessel successfully. reused? No dspellman 03:20 PM Time: 15:05 Patient comfortable and pain free: Yes dspellman 03:20 PM Time: 15:05LOC: 4 = Oriented but drowsy dspellman 03:21 PM .014 PT Graphix 300cm guide wire across target lesion- successful. reused? No dspellman 03:22 PM Recorded Pressure: Ao, HR=57, Condition=Condition 1 (Aorta) Ao 129/83/101 03:23 PM Inflation device was opened. dspellman 03:23 PM Recorded Pressure: Ao, HR=59, Condition=Condition 1 (Aorta) Ao 132/78/97 03:23 PM Time: 15:23 Nitroglycerin 200 mcg Intracoronary Given by Sam Burrows MD [email or web address] 03:24 PM HR=61 bpm, PNEW=692/62 mmhg, SpO2=93.0 %, Resp=16 B/min, Comment=NSR 03:24 PM Time: 15:23 Heparin 3000 units Intravenous Given by Sam Burrows MD dspell 03:25 PM 2.0 mm x 8 mm Mini Trek OTW balloon across target lesion- successful. reused? No dspellman 03:25 PM PCI Status Elective dspellman 03:27 PM PCI lesion in Mid Circumflex. Pre Stenosis: 99 Pre WOODROW Flow: 3: Complete and Brisk Flow/Perfusion dspellman 03:28 PM Guide wire removed intact to reshape dspellman 03:29 PM Guide wire inserted through OTW balloon dspellman 03:29 PM HR=55 bpm, SKER=801/68 mmhg, SpO2=95.0 %, Resp=14 B/min, Comment=Sinus Jorge 03:30 PM Recorded Pressure: Ao, HR=56, Condition=Condition 1 (Aorta) Ao 130/89/106 03:31 PM Balloon inflated @ 12 mayda for 28 seconds dspellman 03:33 PM HR=54 bpm, HGJS=340/74 mmhg, SpO2=96.0 %, Resp=14 B/min, Comment=Sinus Jorge 03:34 PM Balloon catheter removed intact. dspellman 03:35 PM 1.5 mm x 15 mm Emerge OTW balloon across target lesion- successful. reused? No dspellman 03:38 PM Guide wire removed intact. dspell 03:38 PM HR=51 bpm, AMOF=428/76 mmhg, SpO2=98.0 %, Resp=14 B/min, Comment=NSR 03:39 PM Pt Graphix wire inserted through the OTW balloon to distal lesion. dspell 03:41 PM PT Graphix Guide wire removed intact. dspell 03:42 PM Time: 15:42 Versed 1 mg Intravenous Given by Renae Patel RN dspell 03:42 PM Time: 15:42 Fentanyl 25 mcg Intravenous Given by Renae Patel RN dspjanki 03:42 PM Pt Graphix guide wire inserted through OTW balloon dspellman 03:43 PM HR=54 bpm, UYUL=780/75 mmhg, YwQ0=107.0 %, Resp=12 B/min, Comment=Sinus Jorge 03:48 PM PCI lesion in 1st Marginal. Pre Stenosis: 95 Pre WOODROW Flow: 3: Complete and Brisk Flow/Perfusion dspellman 03:48 PM HR=54 bpm, SIUX=241/79 mmhg, SpO2=97.0 %, Resp=14 B/min, Comment=Sinus Jorge 03:48 PM balloon and wire advanced to distal OM lesion dspellman 03:49 PM Balloon inflated @ 6 mayda for 16 seconds dspellman 03:49 PM Balloon inflated @ 10 mayda for 17 seconds dspellman 03:50 PM balloon repositioned dspellman 03:50 PM Balloon inflated @ 14 mayda for 14 seconds dspellman 03:50 PM Balloon inflated @ 14 mayda for 9 seconds dspellman 03:51 PM Balloon inflated @ 14 mayda for 12 seconds dspellman 03:51 PM balloon repositioned dspellman 03:52 PM Balloon inflated @ 14 mayda for 14 seconds dspellman 03:53 PM Recorded Pressure: Ao, HR=53, Condition=Condition 1 (Aorta) Ao 112/49/71 03:53 PM Balloon catheter removed intact. dspell 03:53 PM HR=51 bpm, RTEZ=789/79 mmhg, SpO2=99.0 %, Resp=15 B/min, Comment=Sinus Jorge 03:54 PM Time: 15:54 Aggrastat Bolus: 46 ml Intravenous Given by Renae Patel RN Odell pump 03:54 PM 2.0mm x 8mm Mini Trek OTW balloon inserted over the wire dspell 03:55 PM Time: 15:55 Aggrastat 12.5mg/250ml 16.5 ml/hr Intravenous Given by Renae Patel RN Odell pump dspell 03:56 PM Recorded Pressure: Ao, HR=54, Condition=Condition 1 (Aorta) Ao 153/89/113 03:57 PM Balloon inflated @ 14 mayda for 11 seconds dspell 03:58 PM Balloon inflated @ 14 mayda for 8 seconds dspell 03:58 PM At 15:58 the ACT was 280 seconds. dspell 03:59 PM HR=52 bpm, QSAU=321/78 mmhg, SpO2=98.0 %, Resp=14 B/min, Comment=Sinus Jorge 03:59 PM Time: 15:58 Heparin 2000 units Intravenous Given by Renae Patel RN dspellman 03:59 PM Balloon catheter removed intact. dspellman 04:00 PM 2.0 mm x 15 mm Emerge Monorail balloon across target lesion- successful. reused? No dspellman 04:02 PM Balloon inflated @ 14 mayda for 20 seconds dspellman 04:02 PM Balloon inflated @ 14 mayda for 11 seconds dspellman 04:03 PM HR=61 bpm, CPGD=555/76 mmhg, SpO2=98.0 %, Resp=15 B/min, Comment=Sinus Jorge 04:03 PM Balloon inflated @ 14 mayda for 22 seconds dspellman 04:04 PM Balloon inflated @ 14 mayda for 10 seconds dspellman 04:04 PM Balloon catheter removed intact. dspellman 04:05 PM At 15:18 the ACT was 186 seconds. dspellman 04:06 PM 2.25mm x 23mm Xience Alpine SCOT drug-eluting stent across target lesion- successful Lot #[id number] dspellman 04:07 PM Stent removed intact, undeployed. dspellman 04:08 PM HR=53 bpm, FYWJ=445/69 mmhg, SpO2=98.0 %, Resp=14 B/min, Comment=Sinus Jorge 04:09 PM 2.75 mm x 15mm NC Trek Rx balloon across target lesion- successful. reused? No dspellman 04:10 PM Balloon inflated @ 14 mayda for 14 seconds dspellman 04:11 PM Balloon inflated @ 18 mayda for 17 seconds dspellman 04:11 PM Balloon catheter removed intact. dspellman 04:12 PM 2.25 x 23 Xience Stent inserted over the wire dspellman 04:13 PM HR=55 bpm, OTRT=117/73 mmhg, SpO2=99.0 %, Resp=14 B/min, Comment=Sinus Jorge 04:14 PM Stent removed intact, undeployed dspellman 04:16 PM 3.0 mm x 20mm NC Trek Rx balloon across target lesion- successful. reused? No dspellman 04:17 PM Balloon inflated @ 12 mayda for 12 seconds dspellman 04:17 PM Balloon inflated @ 14 mayda for 11 seconds dspellman 04:18 PM Balloon catheter removed intact. dspellman 04:18 PM HR=50 bpm, BCGM=475/78 mmhg, SpO2=98.0 %, Resp=15 B/min, Comment=Sinus Jorge 04:19 PM 2.25 x 23 Xience Stent inserted over the wire dspellman 04:20 PM Stent deployed @ 12 mayda for 20 seconds OM dspellman 04:21 PM Stent delivery system removed intact. dspellman 04:22 PM Recorded Pressure: Ao, HR=56, Condition=Condition 1 (Aorta) Ao 169/92/119 04:23 PM HR=52 bpm, YWXS=342/82 mmhg, SpO2=98.0 %, Resp=14 B/min, Comment=Sinus Jorge 04:24 PM 3.0mm x 33mm Xience Alpine SCOT drug-eluting stent across target lesion- successful Lot #[id number] dspellman 04:25 PM Stent deployed @ 14 mayda for 16 seconds dspellman 04:25 PM Stent delivery system removed intact. dspellman 04:26 PM 3.0 x 20 NC Trex Rx balloon inserted over the wire CIRC dspellman 04:27 PM Balloon inflated @ 18 mayda for 18 seconds dspellman 04:28 PM Balloon inflated @ 16 mayda for 11 seconds dspellman 04:28 PM Balloon catheter removed intact. dspellman 04:28 PM HR=51 bpm, XVXZ=524/85 mmhg, SpO2=99.0 %, Resp=16 B/min, Comment=Sinus Jorge 04:29 PM Time: 16:28 Nitroglycerin 200 mcg Intracoronary Given by Sam Burrows MD dspellman 04:30 PM 2.5 mm x mm NC Trek Rx balloon across target lesion- successful. reused? No dspellman 04:31 PM Balloon inflated @ 16 mayda for 17 seconds dspellman 04:31 PM Balloon catheter removed intact. dspellman 04:33 PM Guide wire removed intact. dspellman 04:33 PM HR=54 bpm, LHSB=091/76 mmhg, SpO2=99.0 %, Resp=14 B/min, Comment=Sinus Jorge 04:34 PM PCI lesion in Proximal LAD. Pre Stenosis: 90 Pre WOODROW Flow: 3: Complete and Brisk Flow/Perfusion dspellman 04:34 PM PCI lesion in Mid LAD. Pre Stenosis: 70 Pre WOODROW Flow: 3: Complete and Brisk Flow/Perfusion dspellman 04:35 PM .014 Dozier 190cm guide wire across target lesion- successful. reused? No dspellman 04:35 PM Guide wire removed intact to reshape dspellman 04:36 PM Guide wire inserted and advanced to the LAD dspellman 04:36 PM At 16:36 the ACT was 287 seconds. dspellman 04:37 PM Time: 16:37 Heparin 2000 units Intravenous Given by Renae Patel RN dspellman 04:37 PM 2.0 x 15 Emerge balloon advance to lesion MID LAD dspellman 04:39 PM Balloon inflated @ 8 mayda for 11 seconds dspellman 04:39 PM HR=49 bpm, BMBY=473/86 mmhg, SpO2=99.0 %, Resp=15 B/min, Comment=Sinus Jorge 04:40 PM Balloon catheter removed intact. dspellman 04:42 PM 2.75mm x 18mm Xience Alpine SCOT drug-eluting stent across target lesion- successful Lot #[id number] dspellman 04:43 PM Stent deployed @ 11 mayda for 18 seconds dspellman 04:44 PM Stent delivery system removed intact. dspellman 04:44 PM HR=50 bpm, GPCR=116/89 mmhg, OsN4=102.0 %, Resp=14 B/min, Comment=Sinus Jorge 04:45 PM Guide wire removed intact. dspellman 04:46 PM Guide catheter removed intact. dspellman 04:46 PM 6Fr IR 2.0 Terumo guide catheter was used to cannulate the PCI vessel successfully. reused? No dspellman 04:48 PM PCI lesion in Mid RCA. Pre Stenosis: 70 Pre WOODROW Flow: 3: Complete and Brisk Flow/Perfusion dspellman 04:48 PM Time: 16:48 Nitroglycerin 200 mcg Intracoronary Given by Sam Burrows MD dspellman 04:48 PM HR=63 bpm, NMEF=271/80 mmhg, FwC6=550.0 %, Resp=16 B/min, Comment=Sinus 04:49 PM PCI lesion in Proximal RCA. Pre Stenosis: 70 Pre WOODROW Flow: 3: Complete and Brisk Flow/Perfusion dspellman 04:51 PM 2.5 x 15 NC Trex inserted over the wire PROX RCA dspellman 04:52 PM Balloon inflated @ 12 mayda for 9 seconds dspellman 04:53 PM Recorded Pressure: Ao, HR=55, Condition=Condition 1 (Aorta) Ao 173/94/123 04:54 PM HR=53 bpm, YIEG=431/87 mmhg, SpO2=99.0 %, Resp=13 B/min, Comment=Sinus 04:54 PM Balloon catheter removed intact. dspellman 04:55 PM 3.0mm x 23mm Xience Alpine SCOT drug-eluting stent across target lesion- successful Lot #[id number] PROX RCA dspellman 04:56 PM Stent deployed @ 18 mayda for 20 seconds dspellman 04:57 PM Stent delivery system removed intact. dspellman 04:57 PM Recorded Pressure: Ao, HR=54, Condition=Condition 1 (Aorta) Ao 186/97/129 04:58 PM 4.0 mm x 12mm NC Trek Rx balloon across target lesion- successful. reused? No MID RCA dspellman 04:58 PM HR=52 bpm, QCYI=557/83 mmhg, NmJ9=835.0 %, Resp=15 B/min, Comment=Sinus 04:59 PM Balloon inflated @ 14 mayda for 17 seconds dspellman 04:59 PM Balloon inflated @ 18 mayda for 14 seconds dspellman 05:00 PM Balloon catheter removed intact. dspellman 05:01 PM 2.0 x 15 Emerge balloon inserted over the wire RPL dspellman 05:02 PM Balloon inflated @ 8 mayda for 15 seconds dspellman 05:03 PM PCI lesion in RPL. Pre Stenosis: 95 Pre WOODROW Flow: 3: Complete and Brisk Flow/Perfusion dspellman 05:03 PM HR=60 bpm, AQYQ=944/86 mmhg, SpO2=99.0 %, Resp=14 B/min, Comment=Sinus 05:04 PM Balloon catheter removed intact. dspellman 05:09 PM PT Graphix wire inserted to the RCA dspellman 05:09 PM HR=49 bpm, FHGE=091/91 mmhg, SpO2=99.0 %, Resp=16 B/min, Comment=Sinus 05:11 PM 3.0mm x 28mm Xience Alpine SCOT drug-eluting stent across target lesion- unsuccessul Lot #[id number] dspellman 05:11 PM Stent removed intact, undeployed dspellman 05:12 PM 3.0mm x 24mm Synergy drug-eluting stent across target lesion-un successful Lot #[id number] dspellman 05:13 PM HR=48 bpm, KGNV=164/88 mmhg, SpO2=99.0 %, Resp=18 B/min, Comment=Sinus 05:14 PM Stent removed intact. dspellman 05:14 PM PT Graphix wire inserted dspell 05:14 PM 2.5 x 15 NC TREK balloon inserted over the wire to the mid RCA dspell 05:15 PM Time: 17:15 Fentanyl 25 mcg Intravenous Given by Renae Patel RN dspell 05:16 PM Balloon inflated @ 2 mayda for 10 seconds dspell 05:16 PM At 17:16 the ACT was 245 seconds. dspell 05:16 PM Time: 17:16 Heparin 2000 units Intravenous Given by Sam Burrows MD dspell 05:18 PM Balloon catheter removed intact. dspell 05:19 PM HR=43 bpm, ICST=902/96 mmhg, SpO2=98.0 %, Resp=14 B/min, Comment=Sinus Jorge 05:19 PM 3.0mm x 12mm Synergy drug-eluting stent across target lesion- unsuccessful Lot #[id number] dspell 05:20 PM Stent removed intact. dsp 05:20 PM 4.0 x x 12 NC TREK inserted over the wire dspell 05:21 PM 2.5 NC and Dozier wire removed dspell 05:22 PM Balloon inflated @ 16 mayda for 24 seconds dspell 05:23 PM 3.0 x 12 Synergy advanced to the MID RCA lesion dspell 05:23 PM HR=49 bpm, ERWD=036/91 mmhg, SpO2=94.0 %, Resp=15 B/min, Comment=Sinus jorge 05:25 PM wire and stent pulled back, reseat catheter dspell 05:26 PM 3.0mm x 12mm Synergy drug-eluting stent across target lesion- successful Lot # [id number] 05:26 PM Stent deployed @ 16 mayda for 15 seconds dspell 05:26 PM Stent delivery system removed intact. dspell 05:27 PM 4.0 x 12 NC TREK balloon inserted over the wire dspell 05:29 PM Balloon catheter removed intact. dspell 05:29 PM HR=51 bpm, DACU=057/94 mmhg, SpO2=99.0 %, Resp=15 B/min, Comment=Sinus jorge 05:29 PM 3.5 mm x 8mm NC Emerge balloon across target lesion- successful. reused? No dspell 05:30 PM Balloon inflated @ 20 mayda for 14 seconds dspell 05:31 PM Balloon inflated @ 20 mayda for 11 seconds dspellman 05:31 PM Balloon catheter removed intact. dspellman 05:32 PM 4.0 NC TREK balloon inserted over the wire to the MID RCA dspellman 05:33 PM Balloon catheter removed intact. dspellman 05:34 PM HR=51 bpm, KSVT=672/84 mmhg, SpO2=99.0 %, Resp=13 B/min, Comment=Sinus jorge 05:34 PM 4.0 mm x 8mm NC Trek Rx balloon across target lesion- successful. reused? No MID RCA dspellman 05:34 PM Balloon inflated @ 12 mayda for 10 seconds dspellman 05:35 PM Balloon inflated @ 18 mayda for 11 seconds dspellman 05:35 PM Balloon catheter removed intact. dspellman 05:36 PM Time: 17:35 Nitroglycerin 100 mcg Intracoronary Given by Sam Burrows MD dspell 05:36 PM Balloon catheter removed intact. dspell 05:36 PM Guide wire removed intact. dspellman 05:36 PM Guide catheter removed intact. dspellman 05:37 PM Procedure completed at 17:37 11/18/2017 dspellman 05:38 PM Impella Pump turned off. dspell 05:38 PM Impella sheath sutured to skin. dspell 05:38 PM HR=57 bpm, JRIC=771/83 mmhg, SpO2=97.0 %, Resp=10 B/min, Comment=Sinus jorge 05:42 PM Time: 17:42 Fentanyl 25 mcg Intravenous Given by Renae Patel RN dspell 05:44 PM HR=61 bpm, VUUA=205/99 mmhg, SpO2=99.0 %, Resp=12 B/min, Comment=Sinus jorge 05:48 PM HR=50 bpm, YAJV=898/93 mmhg, SpO2=98.0 %, Resp=12 B/min, Comment=Sinus jorge 05:49 PM Sign out completed: Radiation Dose 4075.44 mGy, 29161 cGy/cm2 Fluoro Time: 43.8 Isovue 370 - 200ml contrast 287 ml given by Sam Burrows MD, [facility]. Complications: NoneCardiac Rehab Consult needed: YesConfirmed administered medications: Yes dspellman 05:49 PM Isovue 370 - 200ml,3 Bottle(s) used. dspellman 05:49 PM Arterial sheath pulled, Vasc Band closure device used and was Successful S/N. 05:49 PM 10 ml air in Vasc Band. 05:50 PM Estimated Blood Loss: less than 20cc dsp 05:50 PM Post ECG Sinus Bradycardia dspell 05:50 PM Post Blood Pressure 175/93 dspell 05:50 PM Site status No bleeding/hematoma - Rt Groin as reported by Martha Olson RT (R) at 17:50 dspell 05:51 PM Site status No bleeding/hematoma - Rt Wrist as reported by Martha Olson RT (R) at 17:50 dspell 05:51 PM Delay to floor No dspell 05:51 PM Family placed in consult room. 05:51 PM Complications: None 05:52 PM Time: 17:51 2 ml Lidocaine 1% w/ epi to right groin Subcutaneous Given by Sam Burrows MD, [facility] dspell 05:53 PM Time: 17:52 Plavix 300 mg Orally Given by Renae Patel RN 05:54 PM HR=48 bpm, VLII=795/93 mmhg, NpL0=659.0 %, Resp=20 B/min, Comment=Sinus jorge 05:59 PM HR=49 bpm, MTSJ=321/88 mmhg, RbY8=506.0 %, Resp=20 B/min 06:00 PM Report given to Ambar ROSE Pt taken to ICU Room #1. 18:00 dspell 06:13 PM Patient out of room: 18:13 dspell 06:42 PM Coronary Dominance: right [facility] Complications Complication None None Hemodynamics Pressures Site Systolic/A Wave Diastolic/V Wave Mean AO 118 68 89 AO 133 79 101 AO 129 83 101 AO 132 78 97 AO 130 89 106 AO 112 49 71 AO 153 89 113 AO 169 92 119 AO 173 94 123 AO 186 97 129 Post Procedure Information Blood Pressure: 175/93 mmHg Rhythm: Sinus Bradycardia Post procedural instructions were given Closure Device Time Device Success/Fail 11/18/2017 6:01:00 PM Mechanical Compression Successful Site Checks Time Location Status Staff Sheath In? Note 05:50 PM Rt Groin Oozing Martha Olson RT (R) 05:50 PM Rt Wrist No bleeding/hematoma Martha Olson RT (R) Pulses Time Site Pre-Procedure Post-Procedure Note 11/18/2017 2:12:00 PM Bilateral DP & PT 2+ 11/18/2017 2:27:00 PM Rt Radial 2+ Updated by Emily De La Torre RN on 11/18/2017 6:42:43 PM Jenise Elaine, RT electronically signed on 11/18/2017 6:44:39 PM with status of Final
[2017-11-18] MEDS ORDERED: Ondansetron 4 MG/2 ML VIAL ONE (19:03)
[2017-11-18] MEDS ORDERED: ceFAZolin 2,000 MG in 0.9 % Sodium Chloride 100 ML IVPB ONE (19:05)
[2017-11-18] MEDS: Acetaminophen 325 MG TABLET PO PRN (22:41)
[2017-11-19] MEDS: Insulin LISPRO 300 UNITS/3 ML VIAL SQ SCH ×4 (09:01→21:31)
[2017-11-19] MEDS: Aspirin 81 MG TAB.CHEW PO SCH (09:01)
[2017-11-19] MEDS: Gabapentin 300 MG CAPSULE PO SCH ×4 (09:02→21:30)
[2017-11-19] MEDS: Acetaminophen 325 MG TABLET PO PRN (09:06)
--- NOTE | 2017-11-19 09:52 | Cardiology Progress Note ---
Date of Encounter: 11/19/17 Time of Encounter: 09:20 Assessment and Plan (1) CAD (coronary artery disease) Current Visit: Yes Status: Acute Per Cardiology: Status post high risk PCI with Impella yesterday by Dr. Burrows. Patient underwent PTCA with drug-eluting stent to ostial proximal LAD 90% lesion, PTCA and drug-eluting stent to proximal circumflex 99% lesion, PTCA/drug-eluting stent to 99% distal marginal lesion, status post PTCA and drug-eluting stent overlapping 2 to proximal RCA 70% lesion and mid RCA 80% lesion, status post PTCA of PLB 95% lesion with residual 70% stenosis, PDA severely diffusely diseased. Clinically stable today. Chest pain-free. On aspirin, statin, beta kenisha, KATTY inhibitor, long-acting nitrate. Currently on Plavix-- received this morning. Did receive Aggrastat yesterday. Discussed and reviewed with Dr. Rashid, recommend patient's remaining hospitalized today and provide Brilinta load 180 mg by mouth times one tonight and start 90 mg by mouth twice a day daily tomorrow morning. Assistance card provided. Order placed for work excuse and patient to remain off work until seen by cardiology for follow-up. Follow-up arranged. Discussed with Dr. Rashid, cardiology will sign off, reconsult as needed, anticipate discharge tomorrow. Please call with any questions. All questions answered. Qualifiers: Coronary Disease-Associated Artery/Lesion type: eagle artery [place] vs. transplanted heart: eagle heart Associated angina: without angina Qualified Code(s): I25.10 - Atherosclerotic heart disease of eagle coronary artery without angina pectoris Discussion w patient/family: The assessment and plan as outlined above was discussed with the patient who expressed understanding and agreement. All questions were answered. Thank you for involving us in the care of your patient. Please call with any questions. Subjective Principal diagnosis: CAD Interval history: Denies any chest pain, shortness of breath, palpitations. Denies any complications from his right wrist or right groin site. Objective Vital Signs, Last 4 Hours Temp Pulse Resp BP Pulse Ox 11/19/17 09:00 63 12 112/69 100 11/19/17 08:00 97.9 F 65 12 125/74 95 11/19/17 06:00 60 12 97/55 96 General: Conversant, No Apparent Distress HEENT: Atraumatic, Normocephaly, Mucus Membranes Moist Neck: No JVD, Normal carotid pulses Cardiac: Reg Rate and Rhythm, Normal S1 and S2, No Murmur Lungs: Normal Breath Sounds, No Wheeze, Rales, Rhonchi Neuro: Alert and responsive, No focal deficits noted Abdomen: Soft, Non-Tender Skin: No rashes noted on visualized skin, Other (Right wrist site dry and intact , no hematoma, no bleeding, no ecchymosis, right radial pulse 2+ palpable; right groin site with moderate ecchymosis, no bleeding, no hematoma, right PT and DP pulses 2+ palpable) Musculoskeletal: No Chest Wall Tenderness Extremities: No Clubbing, No Cyanosis, No Edema, Normal Pulses Results 11/17/17 09:36 11/18/17 08:26 Active Medications Acetaminophen (Tylenol) 650 mg PO Q6HR PRN PRN Reason: Pain and/or Fever Stop: 05/17/18 23:24 Last Admin: 11/19/17 09:06 Dose: 650 mg Aspirin (Aspirin) 81 mg PO DAILY [facility] Stop: 05/17/18 09:01 Last Admin: 11/19/17 09:01 Dose: 81 mg Atorvastatin Calcium (Lipitor) 40 mg PO HS [facility] Stop: 05/17/18 21:01 Last Admin: 11/18/17 22:40 Dose: 40 mg Carvedilol (Coreg) 25 mg PO BIDWM AKILA PRN Reason: Protocol Stop: 05/17/18 08:16 Last Admin: 11/18/17 22:39 Dose: 25 mg Clopidogrel Bisulfate (Plavix) 75 mg PO DAILY [facility] Stop: 05/20/18 09:01 Last Admin: 11/19/17 09:02 Dose: 75 mg Dextrose/Water (Dextrose 50% (Syg)) 25 ml IVP AD PRN PRN Reason: Hypoglycemia Stop: 05/17/18 08:02 Gabapentin (Neurontin) 600 mg PO QID [facility] Stop: 05/17/18 09:01 Last Admin: 11/19/17 09:02 Dose: 600 mg Glucagon (Glucagen) 1 mg IM ONCE PRN PRN Reason: Hypoglycemia Stop: 05/17/18 08:02 Glucose (Gluctose) 15 gm PO ONCE PRN PRN Reason: Hypoglycemia Stop: 05/17/18 08:02 Glucose (Gluctose) 30 gm PO ONCE PRN PRN Reason: Hypoglycemia Stop: 05/17/18 08:02 Dextrose (Dextrose 5%) 1,000 mls @ 100 mls/hr IVC .Q10H PRN PRN Reason: HYPOGLYCEMIA Stop: 05/17/18 08:02 Sodium Chloride (0.9 % Sodium Chloride) 1,000 mls @ 100 mls/hr IVC .Q10H AKILA Stop: 05/19/18 15:31 Last Admin: 11/18/17 23:34 Dose: 100 mls/hr Insulin Human Lispro (Humalog) 0 units SQ TIDAC AKILA PRN Reason: Protocol Stop: 05/17/18 11:31 Last Admin: 11/19/17 09:01 Dose: Not Given Insulin Human Lispro (Humalog) 0 units SQ HS AKILA PRN Reason: Protocol Stop: 05/17/18 21:01 Last Admin: 11/18/17 21:36 Dose: Not Given Isosorbide Mononitrate (Imdur) 30 mg PO DAILY [facility] Stop: 05/20/18 09:01 Last Admin: 11/18/17 08:31 Dose: 30 mg Lisinopril (Zestril) 10 mg PO DAILY [facility] PRN Reason: Protocol Stop: 05/17/18 09:01 Last Admin: 11/19/17 09:01 Dose: 10 mg Naloxone HCl (Narcan) 0.4 mg IVP Q2MIN PRN PRN Reason: SEE COMMENTS Stop: 05/17/18 07:58 Omeprazole (Prilosec) 20 mg PO DAILY@0630 [facility] PRN Reason: Protocol Stop: 05/17/18 09:01 Last Admin: 11/19/17 06:17 Dose: 20 mg Ondansetron HCl (Zofran) 4 mg IVP Q6HR PRN; Protocol PRN Reason: Nausea And Vomiting Stop: 05/20/18 18:26 Last Admin: 11/18/17 19:05 Dose: 4 mg - Imaging and Cardiology Cardiac cath: report reviewed Consult Discharge Plan - Plan Referrals: Xavier Thomas MD [Primary Care Provider] -
--- NOTE | 2017-11-19 16:35 | Internal Med Progress Note ---
Date of Encounter: 11/19/17 Time of Encounter: 09:40 - Assessment and plan (1) Chest pain Current Visit: Yes Status: Acute Assessment and plan: Telemetry and serial Troponins negative for ACS; nuclear stress test is abnormal with Small sized, mild intensity, reversible basal inferolateral defect suggestive of ischemia. Echo showed preserved EF, mild concentric LVH; Cardiology consulted, LHC done, apparently showed 3-vessel disease; CT surgery evaluated- patient is not an operative candidate; Patient underwent high risk PTCA yesterday, received 6 drug-eluting stents; Continue aspirin, beta kenisha, statin, nitrate, KATTY inhibitor. He has been on Plavix, which is being changed to Brilinta today. Received a loading dose of 180 mg, to start 90 mg twice daily from tomorrow. Cardiology signed off at this time, patient is to be off work and any kind of exertion until cardiology follow-up as outpatient. Qualifiers: Chest pain type: chest pain due to myocardial ischemia Ischemic chest pain type: unspecified angina pectoris type Qualified Code(s): I25.9 - Chronic ischemic heart disease, unspecified (2) HTN (hypertension) Current Visit: Yes Status: Chronic Assessment and plan: BP noted to be low normal. Beta kenisha has been decreased. continue home meds ; Qualifiers: Hypertension type: essential hypertension Qualified Code(s): I10 - Essential (primary) hypertension (3) GERD (gastroesophageal reflux disease) Current Visit: Yes Status: Chronic Qualifiers: Esophagitis presence: esophagitis presence not specified Qualified Code(s) : K21.9 - Gastro-esophageal reflux disease without esophagitis (4) Diabetes mellitus Current Visit: Yes Status: Chronic Assessment and plan: blood sugars well-controlled; A1C 6.2%; continue Accucheck blood glucose monitoring with SSI as needed; diabetic diet; Qualifiers: Diabetes mellitus type: type 2 Diabetes mellitus half-way insulin use: without computer terminal operator use Diabetes mellitus complication status: with unspecified complications Qualified Code(s): E11.8 - Type 2 diabetes mellitus with unspecified complications (5) History of CVA with residual deficit Current Visit: Yes Status: Chronic (6) DVT prophylaxis Current Visit: Yes Status: Acute (7) Tobacco abuse Current Visit: Yes Status: Chronic - Time Spent With Patient Total time spent is greater than 50% in coordination of care (as documented) at patient's floor/unit and/or counseling patient: - Subjective Interval history: Denies chest pain, shortness of breath; sitting up in chair; received PCI/PTCA yesterday; - Constitutional Vitals: Temp Pulse Resp BP Pulse Ox 97.9 F 50 12 127/78 94 11/19/17 08:00 11/19/17 15:00 11/19/17 15:00 11/19/17 15:00 11/19/17 15:00 General appearance: Present: A&O X 3, answers questions appropriately - Respiratory Respiratory exam: Present: CTAB. Absent: accessory muscle use, rales, rhonchi, wheezes - Cardiovascular Cardiovascular exam: Present: RRR, +S1, +S2. Absent: diastolic murmur, gallop, rubs, systolic murmur - GI/Abdominal GI/Abdominal exam: Present: normal bowel sounds, soft, no peritoneal signs. Absent: distended, tenderness - Extremities Exam Extremities exam: Present: full ROM, warm, radial pulses palpable and symmetrical. Absent: calf tenderness, cyanotic, pedal edema Internal Medicine: Result - Labs CBC & Chem 7: 11/17/17 09:36 11/18/17 08:26 Consult Discharge Plan - Plan Referrals: Xavier Thomas MD [Primary Care Provider] -
[2017-11-19] MEDS: Isosorbide MONOnitrate (24 HR) 30 MG TAB.ER.24H PO SCH (17:54)
[2017-11-19] MEDS ORDERED: *HR* Ticagrelor 90 MG TABLET PO ONE (21:00)
[2017-11-20] MEDS: *HR* Heparin 5,000 UNIT/ML VIAL SQ SCH ×2 (01:44→08:18)
[2017-11-20] MEDS: Acetaminophen 325 MG TABLET PO PRN (04:04)
[2017-11-20 06:48] VITALS: BP 151/88
[2017-11-20] MEDS: Insulin LISPRO 300 UNITS/3 ML VIAL SQ SCH (07:47)
[2017-11-20] MEDS: Isosorbide MONOnitrate (24 HR) 30 MG TAB.ER.24H PO SCH (08:18)
[2017-11-20] MEDS: Aspirin 81 MG TAB.CHEW PO SCH (08:18)
[2017-11-20] MEDS: Gabapentin 300 MG CAPSULE PO SCH (08:18)
[2017-11-20] MEDS ORDERED: *HR* Ticagrelor 90 MG TABLET PO SCH (09:00)
--- NOTE | 2017-11-20 10:25 | Discharge Summary ---
- NOTES TO OUTPATIENT PROVIDER Notes to Outpatient Provider: Chest pain with multiple vessel high risk PCI; now on ASA and Brilinta; needs to stay off work until Cardiology f/up; Orders not resulted at time of discharge: Pending orders 11/15/17 21:37 Culture,Blood [BC] Routine 11/16/17 07:00 NM benny perf SPECT multi [NM] Routine 11/17/17 09:55 CL Cardiac Catheterization [CL] Routine 11/18/17 18:24 ECG 12 lead ECG [ECG] Stat 11/19/17 06:00 ECG 12 lead ECG [ECG] AM 0600 Date of Encounter: 11/20/17 Time of Encounter: 10:23 - Discharge Diagnosis (1) Chest pain Priority: Primary Status: Acute Qualifiers: Chest pain type: chest pain due to myocardial ischemia Ischemic chest pain type: unspecified angina pectoris type Qualified Code(s): I25.9 - Chronic ischemic heart disease, unspecified (2) HTN (hypertension) Priority: Secondary Status: Chronic Qualifiers: Hypertension type: essential hypertension Qualified Code(s): I10 - Essential (primary) hypertension (3) GERD (gastroesophageal reflux disease) Priority: Secondary Status: Chronic Qualifiers: Esophagitis presence: esophagitis presence not specified Qualified Code(s) : K21.9 - Gastro-esophageal reflux disease without esophagitis (4) Diabetes mellitus Priority: Secondary Status: Chronic Qualifiers: Diabetes mellitus type: type 2 Diabetes mellitus intermediate accountant insulin use: without mcfp use Diabetes mellitus complication status: with unspecified complications Qualified Code(s): E11.8 - Type 2 diabetes mellitus with unspecified complications (5) History of CVA with residual deficit Priority: Secondary Status: Chronic (6) Tobacco abuse Priority: Secondary Status: Chronic Hospital course: Mr. Carrillo is a 57 year old male with the above medical problems, who was admitted with chest pain. Telemetry and serial troponins were negative for ACS. Patient was continued on aspirin, beta kenisha, nitrate, statin, KATTY inhibitor. Nuclear stress test showed small sized reversible basal inferolateral defect suggestive of ischemia. Echocardiogram showed preserved EF, mild concentric LVH. Cardiology was consulted, patient underwent left heart catheterization which showed severe three-vessel disease, CABG was recommended initially. CT surgery evaluation was done, deemed not an operative candidate, recommended high risk PCI instead. Patient subsequently underwent successful PTCA/drug- eluting stents in proximal mid circumflex, distal OM, proximal LAD, proximal RCA , mid RCA, RPLB. Following stents, he was continued on aspirin and Brilinta and reinforced the importance of uninterrupted dual antiplatelet therapy for at least 1 year. He is medically stable for discharge, he is to stay away from work until seen in Cardiology office and cleared. Discharge discussed with: patient, nurse - Time Spent with Patient Total time spent providing and/or coordinating discharge services: Greater than 30 minutes (45 min) - Discharge Medications Prescriptions: Atorvastatin [Lipitor] 40 mg PO HS #30 tablet Carvedilol [Coreg] 12.5 mg PO BIDWM #30 tablet Isosorbide MONOnitrate (24 HR) [Imdur] 30 mg PO DAILY #30 tab.er.24h Ticagrelor [Brilinta] 90 mg PO BID #60 tablet Home Medications: Aspirin 81 mg PO DAILY 10/18/16 [History] Gabapentin [Neurontin] 600 mg PO QID 10/18/16 [History] Omeprazole [PriLOSEC] 20 mg PO DAILY 10/18/16 [History] Ibuprofen 800 mg PO TID PRN 11/15/17 [History] Lisinopril [Zestril] 20 mg PO DAILY 11/15/17 [History] Metformin HCl 1,000 mg PO BID 11/15/17 [History] Atorvastatin [Lipitor] 40 mg PO HS #30 tablet 11/20/17 [Rx] Carvedilol [Coreg] 12.5 mg PO BIDWM #30 tablet 11/20/17 [Rx] Isosorbide MONOnitrate (24 HR) [Imdur] 30 mg PO DAILY #30 tab.er.24h 11/20/17 [ Rx] Ticagrelor [Brilinta] 90 mg PO BID #60 tablet 11/20/17 [Rx] Allergies/Adverse Reactions: 3 Allergy/AdvReac Type Severity Reaction Status Date / Time No Known Allergies Allergy Verified 11/14/17 21:44 Date of admission: 11/19/17 17:08 Primary care physician: Xavier Thomas MD Consults: 11/16/17 13:00 Consult to Cardiology [CONS] Routine Comment: Consulting Provider: Cardiology Florina Reason for Consult: Abnormal stress test, chest pain Call Completed: Yes 07/13/18 18:24 Consult to Cardiac Rehabilitation-Phase1 [CONS] Routine Comment: Reason for Consult: post op PCI Call Completed: Yes Discharging clinician: Nimco Ace Anticipated date of discharge: 11/20/17 - Constitutional Vitals: Temp Pulse Resp BP Pulse Ox 98.7 F 66 16 151/88 98 11/20/17 06:43 11/20/17 06:43 11/20/17 03:54 11/20/17 06:43 11/20/17 06:43 General appearance: Present: A&O X 3, answers questions appropriately - Cardiovascular Cardiovascular exam: Present: RRR, +S1, +S2. Absent: diastolic murmur, gallop, rubs, systolic murmur - Patient Status Disposition: Home, Self-Care Condition: Fair Functional capacity at discharge: independent ambulation Overall status at discharge: patient is progressing back to baseline - Discharge Instructions Instructions: Isosorbide Mononitrate (By mouth), Atorvastatin (By mouth), Carvedilol (By mouth), Ticagrelor (By mouth), Chest Pain (DC), Diabetes Mellitus Type 2 in Adults (DC), Chronic Hypertension (DC) Follow Up With: Xavier Thomas MD [Primary Care Provider] - (Please make follow up appointment with PCP in 1-2 weeks) Forms: Work/School Release, Inpatient Work/School Release Additional Instructions: RISK FACTORS: STOP SMOKING: If you smoke, STOP. Smoking or tobacco use significantly increases your risk of vascular disease because nicotine causes the arteries to narrow or constrict. It also causes fats to stick to the artery. Your chances of having vascular problems are greatly increased if you continue to smoke. For more information, call the education line for smoking cessation 0-376-VINFUJA EAT A LOW FAT/CHOLESTEROL/SODIUM DIET: This diet may help reduce your chances of having vascular problems. LIFTING: Avoid lifting anything more than 10 pounds for 5-7 days Prior to straining, laughing, sneezing and/or coughing, apply manual pressure directly over insertion site. ACTIVITY: You may walk or climb stairs as tolerated You can resume sexual activity as tolerated In general, you are encouraged to engage in physical activity, such as walking, 20 minutes twice a day. BATHING Do not submerge the site into water (bath tub, hot tub, swimming pool) for 1 week. This can be a source for infection into the blood stream. You may shower after 24 hours SITE CARE: After 24 hours, you may remove the dressing and leave the site open to air. Keep the site clean and dry. Clean gently and pat dry. You can expect bruising and tenderness that gradually resolve within a week or two. Return to work as instructed per your physician Resume driving as instructed per physician Keep all scheduled follow up appointments Resume medications as instructed IMPORTANT: If prescribed a Platelet Aggregation Inhibitor such as, Plavix, Brilinta or Effient: Duration of therapy is minimum 3 months These medications are often used in combination with Aspirin Never discontinue unless advised by your Vascular Surgeon. STROKE (CVA) Risk factors for a stroke are: Age, cigarette smoking, diabetes, excessive alcohol consumption, family history, high blood pressure, overweight, physical inactivity, prior stroke, heart attack, carotid artery disease or other artery disease. Warning signs: Sudden numbness or weakness of the face, arm or leg; especially on one side of the body, sudden confusion, trouble speaking or understanding, sudden trouble seeing in one eye, sudden trouble walking, dizziness, loss of balance or coordination, sudden severe headache with no cause. Call 911 or go to the Emergency Room. BLEEDING: Although the risk of bleeding is minimal, it can happen. If you have any bleeding from the site, apply firm pressure above the puncture site for 10-15 minutes. If the bleeding does not stop, continue manual pressure and call 911 Contact your physician if: You develop a fever greater than 101 degrees Fahrenheit Your site becomes reddened or has any drainage You have an increase in pain or burning at the site or if a large knot forms at the site. F/up with Cardiology in 1 week F/up with PCP in 1-2 weeks - Diet and Activity Activity: increase activity as tolerated, return to work once cleared by your PCP/specialist Diet: diabetic diet, low fat, low cholesterol, low salt diet
--- NOTE | 2017-11-21 18:03 | Electrocardiograph Report ---
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
== END 2017-11-20 11:34 | disposition home or self-care (01) | DRG 215 ==
LOC: 2ANU → SUATTDRO 02:39 → ICNU 11-18 17:25 → 2NENU 11-19 16:24
PROVIDERS: ADMIT Internal Medicine; ATTEND Internal Medicine

== ENCOUNTER 2017-12-20 13:44 | Inpatient (IN) ==
[2017-12-20] MEDS ORDERED: 0.9 % Sodium Chloride 1,000 ML IVC ONE (14:01)
--- NOTE | 2017-12-20 14:01 | Emergency Department Note ---
Disposition Clinical Impression: Tiredness Altered mental status Qualifiers: Altered mental status type: disorientation Qualified Code(s): R41.0 - Disorientation, unspecified Disposition: Admitted As Inpatient Time of Disposition: 17:42 General Adult HPI - General Chief complaint: ED Altered Mental Status Stated complaint: AMS Time Seen by Provider: 12/20/17 13:50 Nursing Notes Reviewed: Yes Vital Signs Reviewed: Yes - History of Present Illness HPI Narrative: 2 week history of confusion and sleeping more than normal. Pt had 5 cardiac stents placed 1 month ago. is concerned that he was placed on blood thinners at that time and she is unsure if that is causing the problems. Pt now also on lipitor. 2 weeks ago he had a syncople episode at work. He was " back to normal" per the immediate after the event. No seizure like activity. Pt does have a history of TIA. Also, bells palsy twice. He still has weakness to his right face from that. Pt states that the does feel tired however has no other complaints. Denies SOb. 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 She states that his daughter works with him and that he was frequently doing the worng thing at work even after she corrected him. Pain Scale: 0 - Related Data Home Medications Medication Instructions Recorded Confirmed Aspirin 81 mg PO DAILY 10/18/16 12/18/17 Gabapentin [Neurontin] 600 mg PO TID 10/18/16 12/18/17 Ibuprofen 800 mg PO TID PRN 11/15/17 12/18/17 Lisinopril [Zestril] 20 mg PO DAILY 11/15/17 12/18/17 Metformin HCl 500 mg PO BID 11/15/17 12/18/17 Atorvastatin [Lipitor] 20 mg PO HS 12/13/17 12/18/17 Pantoprazole Sodium [Protonix] 20 mg PO DAILY 12/13/17 12/18/17 Celecoxib [Celebrex] 200 mg PO DAILY 12/20/17 12/20/17 amLODIPine [Norvasc] 5 mg PO DAILY 12/20/17 12/20/17 Previous Rx's Medication Instructions Recorded Carvedilol [Coreg] 12.5 mg PO BIDWM #30 tablet 11/20/17 Ticagrelor [Brilinta] 90 mg PO BID #60 tablet 11/20/17 Allergies Allergy/AdvReac Type Severity Reaction Status Date / Time No Known Allergies Allergy Verified 12/18/17 22:40 All systems ED: reviewed and negative except as stated. Constitutional: Denies: fever, chills ENT ED: Denies: congestion Cardiovascular: Denies: chest pain, palpitations, syncope Respiratory: Denies: cough, dyspnea Gastrointestinal: Denies: abdominal pain, nausea, vomiting, diarrhea Genitourinary: Denies: urgency, dysuria, frequency, hematuria Neurological: Denies: headache, weakness Endocrine: Reports: fatigue Past Medical History - Past Medical History Attestation: Yes The following information was validated with the patient. Source: patient Medical history: Reports: arthritis, COPD, coronary artery disease, CVA, diabetes, GERD, hyperlipidemia, hypertension, syncope, TIA, other Surgical history: Reports: appendectomy, other (Left knee arthroscopy) Psychiatric history: Reports: no psych history - Social History Smoking Status: Current every day smoker Smokeless Tobacco Status: No Alcohol use: Reports: none Drug use: Reports: none Physical Exam - General Limitations: no limitations - Head Head exam: atraumatic, normocephalic, normal inspection - Eye Eye exam: Present: normal appearance, PERRL, EOMI. Absent: scleral icterus - ENT ENT exam: normal exam, normal oropharynx, mucous membranes moist - Neck Neck exam: Present: normal inspection, full ROM, trachea midline - Chest Chest inspection: Present: normal inspection, symmetric chest wall rise - Respiratory Respiratory exam: Present: wheezes (thorughout), prolonged expiratory phase. Absent: respiratory distress, accessory muscle use - Cardiovascular Cardiovascular exam: Present: regular rate, normal rhythm, normal heart sounds - Abdominal Exam Abdominal exam: Present: soft, Non-Tender. Absent: tenderness, distention, guarding, rebound, rigidity, organomegaly - Extremities Exam Extremities exam: Present: normal inspection, full ROM, pedal edema (left sided , chronic), other (valgus deformity to bilateral feet). Absent: tenderness - Back Exam Back exam: Present: normal inspection, full ROM. Absent: tenderness - Neurological Exam Neurological exam: Present: alert, oriented X3, other (Pt does have right sided facial droop, not paralysis. Includes forehead states this is residual from bells palsy and is normal for him) - Psychiatric Psychiatric exam: Present: normal affect, normal mood - Skin Skin exam: Present: warm, dry, intact, normal color. Absent: rash Course Course Narrative: Pt chest XRAY shows cardiomyopathy and hypo aereation of his lung jo. Heat CT shows chronic changes. No gross lab abnormalities. Patient is very tired on exam. However he does wake up and is alert and oriented. He has no complaints other than being tired. We will admit patient to the hospital. Patient does not appear meningitic on exam. His pupils are constricted however reactive to light bilaterally. On exam patient does have right sided facial weakness that the states is consistent with his previous history of Jenkins's palsy. He does have generalized weakness throughout there are no focal deficits of his extremities. He can follow commands. However he does quickly goes back to sleep. Patient's hemoglobin is stable. No signs of leukocytosis. No drug history. TSH is normal. Pt had an echo on 11/15/17 which showed an EF of 60%. - Consultations Consultation #1: I spoke with Dr ERIC. He is requesting inpatient MRI at this time. We will place a consult for them. Time: 17:38 Consultation #2: Dr. Mccartney accepted patient in stable condition. Time: 17:39 Vital Signs Temperature 98.5 F 12/20/17 13:46 Pulse Rate 74 12/20/17 13:46 Respiratory Rate 18 12/20/17 13:46 Blood Pressure 156/88 12/20/17 13:46 O2 Sat by Pulse Oximetry 98 12/20/17 13:46 Temperature 98.5 F 12/20/17 14:08 Pulse Rate 58 12/20/17 17:07 Respiratory Rate 22 12/20/17 17:07 Blood Pressure 149/84 12/20/17 17:07 O2 Sat by Pulse Oximetry 99 12/20/17 17:07 Oxygen Delivery Oxygen Delivery Room Air Medical Decision Making - Medical Records Medical records reviewed: Yes I reviewed the patient's medical records. - Lab Data Lab results reviewed: Yes I reviewed the patient's lab results. Result diagrams: 12/20/17 14:42 12/20/17 14:42 Lab Results 12/20/17 12/20/17 12/20/17 Range/Units 14:42 14:42 14:42 WBC 5.4 (4.3-11.1) K/mcL RBC 3.66 L (4.19-5.50) M/mcL Hgb 10.8 L (12.9-16.9) g/dL Hct 32.1 L (37.5-50.1) % MCV 87.7 (83.0-100.0) fL MCH 29.5 (28.0-33.3) pg MCHC 33.6 (31.6-35.5) g/dL RDW 14.2 (11.5-14.5) % Plt Count 112 L (140-400) K/mcL MPV 10.1 (9.4-12.4) fL Immature Gran % 0.2 (0-4) % Seg Neutrophils % 57.6 % Lymphocytes % 23.2 % Monocytes % 8.3 % Eosinophils % 10.3 % Basophils % 0.4 % Neutrophils # 3.1 (1.6-8.9) K/mcL Lymphocytes # 1.3 (0.6-4.6) K/mcL Monocytes # 0.5 (0.0-1.3) K/mcL Eosinophils # 0.6 (0.0-0.6) K/mcL Basophils # 0.0 (0.0-0.2) K/mcL PT 13.0 H (9.4-12.1) Seconds INR 1.2 APTT 30.9 (26.0-36.0) Seconds Sodium 138 (136-145) mEq/L Potassium 3.9 (3.5-5.1) mEq/L Chloride 106 (98-107) mEq/L Carbon Dioxide 22 L (23-29) mEq/L BUN 19 (6-20) mg/dL Creatinine 1.20 (0.70-1.30) mg/dL Est GFR ( Amer) > 60 (> 60) Est GFR (Non-Af Amer) > 60 (> 60) BUN/Creatinine Ratio 16 (6-26) Glucose 160 H (70-105) mg/dL Calculated Osmolality 292 (280-300) Calcium 9.6 (8.6-10.3) mg/dL Total Bilirubin 0.5 (0.3-1.0) mg/dL Direct Bilirubin 0.1 (0.0-0.2) mg/dL Indirect Bilirubin 0.4 (0.0-1.2) mg/dL AST 14 (13-39) Units/L ALT 11 (7-52) Units/L Alkaline Phosphatase 94 (34-104) Units/L Ammonia (16-53) mcmol/L Creatine Kinase 68 (30-223) Units/L Troponin I < 0.03 (< 0.04) ng/mL Serum Total Protein 7.4 (6.4-8.9) g/dL Albumin 4.3 (3.5-5.7) g/dL Globulin 3.1 (2.4-3.5) g/dL Albumin/Globulin Ratio 1.4 (1.1-2.2) TSH 0.759 (0.340-5.600) mcIU/mL Urine Color (Yellow) Urine Clarity (Clear) Urine pH (5.0-8.0) pH Units Ur Specific [place] (1.010-1.025) Urine Protein (Neg-Trace) mg/dL Urine Glucose (UA) (Normal) mg/dL Urine Ketones (Negative) mg/dL Urine Blood (Negative) Urine Nitrite (Negative) Urine Bilirubin (Negative) Urine Urobilinogen (Normal) mg/dL Ur Leukocyte Esterase (Negative) Ur Culture Indicated? (NO) Urine Opiates Screen (Hldkvb=762) ng/mL Ur Barbiturates Screen (Rxznrj=173) ng/mL Ur Phencyclidine Scrn (Cutoff=25) ng/mL Ur Amphetamines Screen (Xymjnk=8499) ng/mL U Benzodiazepines Scrn (Mmrlwo=077) ng/mL Urine Cocaine Screen (Cutoff= 300) ng/mL U Marijuana (THC) Screen (Cutoff = 50) ng/mL Ur Drug Screen Interp Ethyl Alcohol < 10 (Less than 10) mg/dL 12/20/17 12/20/17 12/20/17 Range/Units 14:42 15:06 15:08 WBC (4.3-11.1) K/mcL RBC (4.19-5.50) M/mcL Hgb (12.9-16.9) g/dL Hct (37.5-50.1) % MCV (83.0-100.0) fL MCH (28.0-33.3) pg MCHC (31.6-35.5) g/dL RDW (11.5-14.5) % Plt Count (140-400) K/mcL MPV (9.4-12.4) fL Immature Gran % (0-4) % Seg Neutrophils % % Lymphocytes % % Monocytes % % Eosinophils % % Basophils % % Neutrophils # (1.6-8.9) K/mcL Lymphocytes # (0.6-4.6) K/mcL Monocytes # (0.0-1.3) K/mcL Eosinophils # (0.0-0.6) K/mcL Basophils # (0.0-0.2) K/mcL PT (9.4-12.1) Seconds INR APTT (26.0-36.0) Seconds Sodium (136-145) mEq/L Potassium (3.5-5.1) mEq/L Chloride (98-107) mEq/L Carbon Dioxide (23-29) mEq/L BUN (6-20) mg/dL Creatinine (0.70-1.30) mg/dL Est GFR ( Amer) (> 60) Est GFR (Non-Af Amer) (> 60) BUN/Creatinine Ratio (6-26) Glucose (70-105) mg/dL Calculated Osmolality (280-300) Calcium (8.6-10.3) mg/dL Total Bilirubin (0.3-1.0) mg/dL Direct Bilirubin (0.0-0.2) mg/dL Indirect Bilirubin (0.0-1.2) mg/dL AST (13-39) Units/L ALT (7-52) Units/L Alkaline Phosphatase (34-104) Units/L Ammonia 48 (16-53) mcmol/L Creatine Kinase (30-223) Units/L Troponin I (< 0.04) ng/mL Serum Total Protein (6.4-8.9) g/dL Albumin (3.5-5.7) g/dL Globulin (2.4-3.5) g/dL Albumin/Globulin Ratio (1.1-2.2) TSH (0.340-5.600) mcIU/mL Urine Color Yellow (Yellow) Urine Clarity Clear (Clear) Urine pH 5.5 (5.0-8.0) pH Units Ur Specific [place] 1.014 (1.010-1.025) Urine Protein Negative (Neg-Trace) mg/dL Urine Glucose (UA) Normal (Normal) mg/dL Urine Ketones Negative (Negative) mg/dL Urine Blood Negative (Negative) Urine Nitrite Negative (Negative) Urine Bilirubin Negative (Negative) Urine Urobilinogen Normal (Normal) mg/dL Ur Leukocyte Esterase Negative (Negative) Ur Culture Indicated? NO (NO) Urine Opiates Screen Negative (Qaebwe=545) ng/mL Ur Barbiturates Screen Negative (Padfxe=552) ng/mL Ur Phencyclidine Scrn Negative (Cutoff=25) ng/mL Ur Amphetamines Screen Negative (Becygj=3860) ng/mL U Benzodiazepines Scrn Negative (Awbvhk=723) ng/mL Urine Cocaine Screen Negative (Cutoff= 300) ng/mL U Marijuana (THC) Screen Negative (Cutoff = 50) ng/mL Ur Drug Screen Interp See Below Ethyl Alcohol (Less than 10) mg/dL - Radiology Data Radiology results reviewed: Yes I reviewed the patient's radiology results. Chest X-Ray 12/20/17 14:01 IMPRESSION: Hypoaeration. D/ / 12/20/2017 15:12:22 Abe Pulliam MD / [facility] [place] Interpreting Provider: Abe Pulliam MD Head CT 12/20/17 14:01 IMPRESSION: Stable appearance of the brain with no acute intracranial abnormality. There is age-appropriate cerebral atrophy with evidence of chronic periventricular small vessel ischemic disease. D/ / John Rankin MD / John Rankin MD Interpreting Provider: John Rankin MD
[2017-12-20] MEDS ORDERED: Ipratropium/Albuterol Neb 3 ML IH ONE (14:04)
[2017-12-20 15:06] LABS: Basophils % 0.4 %; Eosinophils # 0.6 K/mcL (0.0-0.6); Eosinophils % 10.3 %; Hematocrit 32.1 % (37.5-50.1); Hemoglobin 10.8 g/dL (12.9-16.9); Immature Granulocytes % 0.2 % (0-4); Lymphocytes # 1.3 K/mcL (0.6-4.6); Lymphocytes % 23.2 %; Mean Corpuscular HGB Conc 33.6 g/dL (31.6-35.5); Mean Corpuscular Hemoglobin 29.5 pg (28.0-33.3); Mean Corpuscular Volume 87.7 fL (83.0-100.0); Mean Platelet Volume 10.1 fL (9.4-12.4); Monocytes # 0.5 K/mcL (0.0-1.3); Monocytes % 8.3 %; Neutrophils # 3.1 K/mcL (1.6-8.9); Platelet Count 112 K/mcL (140-400); Red Blood Count 3.66 M/mcL (4.19-5.50); Red Cell Distribution Width 14.2 % (11.5-14.5); Segmented Neutrophils % 57.6 %
[2017-12-20 15:10] LABS: INR 1.2
[2017-12-20 15:13] LABS: Activated Partial Thrombo Time 30.9 Seconds (26.0-36.0)
[2017-12-20 15:15] LABS: Bilirubin,Urine Negative (Negative); Blood,Urine Negative (Negative); Clarity,Urine Clear (Clear); Color,Urine Yellow (Yellow); Glucose,Urine (UA) Normal (Normal); Ketones,Urine Negative (Negative); Leukocyte Esterase,Urine Negative (Negative); Nitrite,Urine Negative (Negative); PH,Urine 5.5 pH Units (5.0-8.0); Protein,Urine Negative (Neg-Trace); Specific Gravity,Urine 1.014 (1.010-1.025); Urobilinogen,Urine Normal (Normal)
[2017-12-20 15:24] LABS: Troponin I < 0.03 ng/mL (< 0.04)
[2017-12-20 15:26] LABS: Alanine Aminotransferase 11 Units/L (7-52); Albumin 4.3 g/dL (3.5-5.7); Albumin/Globulin Ratio 1.4 (1.1-2.2); Alkaline Phosphatase 94 Units/L (34-104); Aspartate Amino Transferase 14 Units/L (13-39); BUN/Creatinine Ratio 16 (6-26); Bilirubin,Direct 0.1 mg/dL (0.0-0.2); Bilirubin,Indirect 0.4 mg/dL (0.0-1.2); Bilirubin,Total 0.5 mg/dL (0.3-1.0); Blood Urea Nitrogen 19 mg/dL (6-20); Calcium 9.6 mg/dL (8.6-10.3); Carbon Dioxide 22 mEq/L (23-29); Chloride 106 mEq/L (98-107); Creatine Kinase 68 Units/L (30-223); Ethanol < 10 mg/dL (Less than 10); Globulin 3.1 g/dL (2.4-3.5); Glucose 160 mg/dL (70-105); Osmolality,Calculated 292 (280-300); Potassium 3.9 mEq/L (3.5-5.1); Sodium 138 mEq/L (136-145); Total Protein 7.4 g/dL (6.4-8.9); eGFR For Non-African Americans > 60 (> 60)
[2017-12-20 15:34] LABS: Thyroid Stimulating Hormone 0.759 mcIU/mL (0.340-5.600)
[2017-12-20 15:38] LABS: Amphetamine Screen,Urine Negative ng/mL (Cutoff=1000); Barbiturate Screen,Urine Negative ng/mL (Cutoff=200); Benzodiazepines Screen,Urine Negative ng/mL (Cutoff=200); Cannabinoid Screen,Urine Negative ng/mL (Cutoff = 50); Cocaine Screen,Urine Negative ng/mL (Cutoff= 300); Opiate Screen,Urine Negative ng/mL (Cutoff=300); Phencyclidine Screen,Urine Negative ng/mL (Cutoff=25)
--- NOTE | 2017-12-20 16:43 | Emergency Department Note ---
Disposition Clinical Impression: Altered mental status, Tiredness Disposition: Admitted As Inpatient Altered Mental Status HPI - General Chief Complaint: ED Altered Mental Status Stated Complaint: AMS Time Seen by Provider: 12/20/17 13:50 Source: patient Limitations: no limitations Nursing Notes Reviewed: Yes Vital Signs Reviewed: Yes - Related Data Home Medications Medication Instructions Recorded Confirmed Aspirin 81 mg PO DAILY 10/18/16 12/20/17 Gabapentin [Neurontin] 600 mg PO QID 10/18/16 12/20/17 Ibuprofen 800 mg PO TID PRN 11/15/17 12/20/17 Lisinopril [Zestril] 20 mg PO DAILY 11/15/17 12/20/17 Metformin HCl 500 mg PO BID 11/15/17 12/20/17 Atorvastatin [Lipitor] 20 mg PO HS 12/13/17 12/20/17 Pantoprazole Sodium [Protonix] 20 mg PO DAILY 12/13/17 12/20/17 Celecoxib [Celebrex] 200 mg PO DAILY 12/20/17 12/20/17 amLODIPine [Norvasc] 5 mg PO DAILY 12/20/17 12/20/17 Previous Rx's Medication Instructions Recorded Carvedilol [Coreg] 12.5 mg PO BIDWM #30 tablet 11/20/17 Ticagrelor [Brilinta] 90 mg PO BID #60 tablet 11/20/17 Allergies Allergy/AdvReac Type Severity Reaction Status Date / Time No Known Allergies Allergy Verified 12/18/17 22:40 Past Medical History - Past Medical History Medical history: Reports: arthritis, COPD, coronary artery disease, CVA, diabetes, GERD, hyperlipidemia, hypertension, syncope, TIA, other Surgical history: Reports: appendectomy, other (Left knee arthroscopy) Psychiatric history: Reports: no psych history - Social History Smoking Status: Current every day smoker Smokeless Tobacco Status: No Alcohol use: Reports: none Drug use: Reports: none Physical Exam - General Limitations: no limitations General appearance: alert, in no apparent distress Course Vital Signs Temperature 98.5 F 12/20/17 13:46 Pulse Rate 74 12/20/17 13:46 Respiratory Rate 18 12/20/17 13:46 Blood Pressure 156/88 12/20/17 13:46 O2 Sat by Pulse Oximetry 98 12/20/17 13:46 Temperature 97.8 F 12/20/17 19:19 Pulse Rate 57 12/20/17 19:19 Respiratory Rate 15 12/20/17 19:19 Blood Pressure 148/84 12/20/17 19:19 O2 Sat by Pulse Oximetry 97 12/20/17 19:19 Oxygen Delivery Oxygen Delivery Room Air Altered Mental Status - Lab Data Result diagrams: 12/20/17 14:42 12/20/17 14:42 Lab Results 12/20/17 12/20/17 12/20/17 Range/Units 14:42 14:42 14:42 WBC 5.4 (4.3-11.1) K/mcL RBC 3.66 L (4.19-5.50) M/mcL Hgb 10.8 L (12.9-16.9) g/dL Hct 32.1 L (37.5-50.1) % MCV 87.7 (83.0-100.0) fL MCH 29.5 (28.0-33.3) pg MCHC 33.6 (31.6-35.5) g/dL RDW 14.2 (11.5-14.5) % Plt Count 112 L (140-400) K/mcL MPV 10.1 (9.4-12.4) fL Immature Gran % 0.2 (0-4) % Seg Neutrophils % 57.6 % Lymphocytes % 23.2 % Monocytes % 8.3 % Eosinophils % 10.3 % Basophils % 0.4 % Neutrophils # 3.1 (1.6-8.9) K/mcL Lymphocytes # 1.3 (0.6-4.6) K/mcL Monocytes # 0.5 (0.0-1.3) K/mcL Eosinophils # 0.6 (0.0-0.6) K/mcL Basophils # 0.0 (0.0-0.2) K/mcL PT 13.0 H (9.4-12.1) Seconds INR 1.2 APTT 30.9 (26.0-36.0) Seconds Sodium 138 (136-145) mEq/L Potassium 3.9 (3.5-5.1) mEq/L Chloride 106 (98-107) mEq/L Carbon Dioxide 22 L (23-29) mEq/L BUN 19 (6-20) mg/dL Creatinine 1.20 (0.70-1.30) mg/dL Est GFR ( Amer) > 60 (> 60) Est GFR (Non-Af Amer) > 60 (> 60) BUN/Creatinine Ratio 16 (6-26) Glucose 160 H (70-105) mg/dL Calculated Osmolality 292 (280-300) Calcium 9.6 (8.6-10.3) mg/dL Total Bilirubin 0.5 (0.3-1.0) mg/dL Direct Bilirubin 0.1 (0.0-0.2) mg/dL Indirect Bilirubin 0.4 (0.0-1.2) mg/dL AST 14 (13-39) Units/L ALT 11 (7-52) Units/L Alkaline Phosphatase 94 (34-104) Units/L Ammonia (16-53) mcmol/L Creatine Kinase 68 (30-223) Units/L Troponin I < 0.03 (< 0.04) ng/mL Serum Total Protein 7.4 (6.4-8.9) g/dL Albumin 4.3 (3.5-5.7) g/dL Globulin 3.1 (2.4-3.5) g/dL Albumin/Globulin Ratio 1.4 (1.1-2.2) TSH 0.759 (0.340-5.600) mcIU/mL Urine Color (Yellow) Urine Clarity (Clear) Urine pH (5.0-8.0) pH Units Ur Specific [place] (1.010-1.025) Urine Protein (Neg-Trace) mg/dL Urine Glucose (UA) (Normal) mg/dL Urine Ketones (Negative) mg/dL Urine Blood (Negative) Urine Nitrite (Negative) Urine Bilirubin (Negative) Urine Urobilinogen (Normal) mg/dL Ur Leukocyte Esterase (Negative) Ur Culture Indicated? (NO) Urine Opiates Screen (Nspcjy=629) ng/mL Ur Barbiturates Screen (Emlghe=855) ng/mL Ur Phencyclidine Scrn (Cutoff=25) ng/mL Ur Amphetamines Screen (Rsegzf=5891) ng/mL U Benzodiazepines Scrn (Arkgfn=307) ng/mL Urine Cocaine Screen (Cutoff= 300) ng/mL U Marijuana (THC) Screen (Cutoff = 50) ng/mL Ur Drug Screen Interp Ethyl Alcohol < 10 (Less than 10) mg/dL 12/20/17 12/20/17 12/20/17 Range/Units 14:42 15:06 15:08 WBC (4.3-11.1) K/mcL RBC (4.19-5.50) M/mcL Hgb (12.9-16.9) g/dL Hct (37.5-50.1) % MCV (83.0-100.0) fL MCH (28.0-33.3) pg MCHC (31.6-35.5) g/dL RDW (11.5-14.5) % Plt Count (140-400) K/mcL MPV (9.4-12.4) fL Immature Gran % (0-4) % Seg Neutrophils % % Lymphocytes % % Monocytes % % Eosinophils % % Basophils % % Neutrophils # (1.6-8.9) K/mcL Lymphocytes # (0.6-4.6) K/mcL Monocytes # (0.0-1.3) K/mcL Eosinophils # (0.0-0.6) K/mcL Basophils # (0.0-0.2) K/mcL PT (9.4-12.1) Seconds INR APTT (26.0-36.0) Seconds Sodium (136-145) mEq/L Potassium (3.5-5.1) mEq/L Chloride (98-107) mEq/L Carbon Dioxide (23-29) mEq/L BUN (6-20) mg/dL Creatinine (0.70-1.30) mg/dL Est GFR ( Amer) (> 60) Est GFR (Non-Af Amer) (> 60) BUN/Creatinine Ratio (6-26) Glucose (70-105) mg/dL Calculated Osmolality (280-300) Calcium (8.6-10.3) mg/dL Total Bilirubin (0.3-1.0) mg/dL Direct Bilirubin (0.0-0.2) mg/dL Indirect Bilirubin (0.0-1.2) mg/dL AST (13-39) Units/L ALT (7-52) Units/L Alkaline Phosphatase (34-104) Units/L Ammonia 48 (16-53) mcmol/L Creatine Kinase (30-223) Units/L Troponin I (< 0.04) ng/mL Serum Total Protein (6.4-8.9) g/dL Albumin (3.5-5.7) g/dL Globulin (2.4-3.5) g/dL Albumin/Globulin Ratio (1.1-2.2) TSH (0.340-5.600) mcIU/mL Urine Color Yellow (Yellow) Urine Clarity Clear (Clear) Urine pH 5.5 (5.0-8.0) pH Units Ur Specific [place] 1.014 (1.010-1.025) Urine Protein Negative (Neg-Trace) mg/dL Urine Glucose (UA) Normal (Normal) mg/dL Urine Ketones Negative (Negative) mg/dL Urine Blood Negative (Negative) Urine Nitrite Negative (Negative) Urine Bilirubin Negative (Negative) Urine Urobilinogen Normal (Normal) mg/dL Ur Leukocyte Esterase Negative (Negative) Ur Culture Indicated? NO (NO) Urine Opiates Screen Negative (Ntdzes=622) ng/mL Ur Barbiturates Screen Negative (Xruoxp=239) ng/mL Ur Phencyclidine Scrn Negative (Cutoff=25) ng/mL Ur Amphetamines Screen Negative (Vaxotx=6054) ng/mL U Benzodiazepines Scrn Negative (Nkrnnb=491) ng/mL Urine Cocaine Screen Negative (Cutoff= 300) ng/mL U Marijuana (THC) Screen Negative (Cutoff = 50) ng/mL Ur Drug Screen Interp See Below Ethyl Alcohol (Less than 10) mg/dL TPA Checklist - LKW: 3-4.5 hrs Add. Warnings/Precautions Patient/family understanding: The patient/family members have been counseled and understood the risk, benefit , and alternatives of treatment. Attestation Statement - Attestation Attestation: I, Wolfgang Post, examined this patient and my medical decision-making was reviewed with the CLINICAL OPERATIONS MANAGER/PA/Advanced Practice Nurse/Resident Physician. I agree with the documented findings, disposition and treatment plan as described except to the extent set forth below. 57-year-old male presents emergency Department with concerns of altered mental status. Patient has been having worsening of his symptoms over the past 5 days. states he is generally awake alert and able to have a full conversation. During the evaluation emergency department the patient is fatigued and unable to stay awake long enough to answer questions. Patient denies fever, pain in the emergency department. No other recent change medication changes per the . No history of IV drug abuse. CT of the head was negative for acute fracture or intracranial hemorrhage. Laboratory evaluation was largely within normal limits other than anemia which is present on previous evaluations. Patient will be admitted to the hospital for further care and evaluation.
[2017-12-20] MEDS ORDERED: Naloxone 0.4 MG/ML INJ IVP PRN (17:42)
[2017-12-20] MEDS ORDERED: Dextrose Gel 15 GM/37.5 ML TUBE PO PRN ×2 (17:48)
[2017-12-20] MEDS ORDERED: *HR* Dextrose 50 % in Water (Syg) 50 ML SYRINGE IVP PRN (17:48)
[2017-12-20] MEDS ORDERED: D5% in Water 1,000 ML IVC PRN (17:48)
[2017-12-20] MEDS ORDERED: 0.9 % Sodium Chloride 1,000 ML IVC SCH ×2 (18:00→19:21)
--- NOTE | 2017-12-20 18:19 | Internal Med History&Physical ---
Date of Encounter: 12/20/17 Time of Encounter: 17:30 Internal Medicine - H&P: HPI Chief complaint: Altered mental status Admitted From: Home Plans for Post Hospital Care: Home History of present illness: Mr. Carrillo is a 57 year old male presented to ER for altered mental status. Past medical history is significant for CAD S/P stent recently, Jenkins's palsy, diabetes, hypertension. Patient has progressive confusion and altered mental status in about 1 week. Denies headache, nausea, vomiting, chest pain, or fever. Patient denies focal weakness, numbness, or tingling. Patient presented to ER as disorientation and sleepy. Patient can be waken up by verbal stimulation. Patient knows he is in "[facility]" but can not tell the date. In the emergency room, labs, vitals are general stable or unremarkable. Head CT and chest x-ray and remarkable. Neurology was counsulted, recommend MRI, no further recommendation at this point. Patient will be admitted for further monitoring. Past Med Surg Social Fam HX - Past Medical History Medical history: arthritis, COPD, coronary artery disease, CVA, diabetes, GERD, hyperlipidemia, hypertension, syncope, TIA, other Additional medical history: BELLS PALSY Psychiatric history: no psych history - Past Surgical History Surgical History: appendectomy, other (Left knee arthroscopy) Additional surgical history: LEFT KNEE SURGERY, cardiac stents x5 - Social History Smoking Status: Current every day smoker Smokeless Tobacco Status: No Alcohol use: none Drug use: none - Family History Mother Adopted: No Living Status: Hx Family Cardiac Disorders: No Hx Family Respiratory Disorders: No Hx Family Cancer: Yes (BREAST CANCER) Hx Family GI Disorders: No Hx Family Endocrine Disorder: No Hx Family Neuromuscular Disorders: No Hx Family Neurologic Disorders: No Hx Family HEENT Disorders: No Hx Family Autoimmune Disorders: No Son Adopted: No Hx Family Endocrine Disorder: Yes Internal Medicine - H&P: Meds Aspirin 81 mg PO DAILY 10/18/16 [History] Gabapentin [Neurontin] 600 mg PO QID 10/18/16 [History] Ibuprofen 800 mg PO TID PRN 11/15/17 [History] Lisinopril [Zestril] 20 mg PO DAILY 11/15/17 [History] Metformin HCl 500 mg PO BID 11/15/17 [History] Carvedilol [Coreg] 12.5 mg PO BIDWM #30 tablet 11/20/17 [Rx] Ticagrelor [Brilinta] 90 mg PO BID #60 tablet 11/20/17 [Rx] Atorvastatin [Lipitor] 20 mg PO HS 12/13/17 [History] Pantoprazole Sodium [Protonix] 20 mg PO DAILY 12/13/17 [History] Celecoxib [Celebrex] 200 mg PO DAILY 12/20/17 [History] amLODIPine [Norvasc] 5 mg PO DAILY 12/20/17 [History] 3 Allergy/AdvReac Type Severity Reaction Status Date / Time No Known Allergies Allergy Verified 12/18/17 22:40 All Systems PM: A 10-system review of systems was performed and is negative for pertinent findings except as documented above in the HPI. - Constitutional Vitals: Temp Pulse Resp BP Pulse Ox 98.5 F 58 16 153/78 99 12/20/17 14:08 12/20/17 17:07 12/20/17 18:05 12/20/17 18:05 12/20/17 17:07 General appearance: Present: A&O X 2, no acute distress, answers questions appropriately Exam: Patient is sleepy and disoriented to date. - Head Head exam: Present: atraumatic, normocephalic - Eye Eye exam: Present: PERRL, conjuntiva pink, sclera anicteric Pupils: Present: PERRL - Neck Neck exam general surgery: Present: supple, trachea midline. Absent: lymphadenopathy - Respiratory Respiratory exam: Present: CTAB. Absent: accessory muscle use, rales, rhonchi, wheezes - Cardiovascular Cardiovascular exam: Present: RRR, +S1, +S2. Absent: diastolic murmur, gallop, rubs, systolic murmur - GI/Abdominal GI/Abdominal exam: Present: normal bowel sounds, soft, no peritoneal signs. Absent: distended, tenderness - Extremities Exam Extremities exam: Present: warm, radial pulses palpable and symmetrical. Absent : calf tenderness, cyanotic, pedal edema - Neurological Exam Neurological exam: Present: CN II-XII intact, oriented X3, no focal deficits. Absent: pronater drift, facial droop, speech deficit - Skin Skin exam: Present: dry, intact Internal Med - H&P Results - Labs CBC & Chem 7: 12/20/17 14:42 12/20/17 14:42 - Assessment and plan (1) Acute encephalopathy Current Visit: Yes Status: Acute Assessment and plan: Etiology is undetermined. Patient has no signs of infection, dehydration. Urine toxicity negative. Patient has no focal neuro deficit. - We will place patient on continuous cardiac monitoring - MRI - Neurology consult - Check morning vitamin B12, folic acid, and cortisol. - Neurochecks every 2 hours. - Echo and duplex carotid (2) Diabetes mellitus Current Visit: No Status: Chronic Assessment and plan: Place patient on sliding scale insulin coverage. Qualifiers: Diabetes mellitus type: type 2 Diabetes mellitus agile developer insulin use: without agile developer use Diabetes mellitus complication status: with unspecified complications Qualified Code(s): E11.8 - Type 2 diabetes mellitus with unspecified complications (3) DVT prophylaxis Current Visit: No Status: Acute Assessment and plan: EPCDs (4) CAD (coronary artery disease) Current Visit: No Status: Acute Assessment and plan: Patient has recent stent placed. Denies chest pain. EKG unremarkable. - Continue cardiac monitoring. - We will check 3 sets of troponin as patient has altered mental status. - Echocardiogram - Continue DAPT, beta kenisha, and statin. Qualifiers: Coronary Disease-Associated Artery/Lesion type: [place] artery [place] vs. transplanted heart: seminole heart Associated angina: without angina Qualified Code(s): I25.10 - Atherosclerotic heart disease of seminole coronary artery without angina pectoris - Time Spent With Patient Total time spent is greater than 50% in coordination of care (as documented) at patient's floor/unit and/or counseling patient: 40 minutes Greater than 35 minutes
--- NOTE | 2017-12-20 19:40 | Event Note ---
Date of Encounter: 12/20/17 Time of Encounter: 19:30 Called by RN that radiology report acute infarct in right internal capsule area. Called pt's again to comfirm the starting symptom time. Was told pt has sleepy and tiredness for about 1 week, no specific start point. Obviously pt is out of thrombolysis window. D/W neurology on phone, will place pt on CVA protocol. Pt's infarct possibly too small to be picked up by CT. Pt will transfer to [facility] for close monitoring.
[2017-12-20] MEDS: Insulin LISPRO 300 UNITS/3 ML VIAL SQ SCH (21:08)
[2017-12-20] MEDS: *HR* Ticagrelor 90 MG TABLET PO SCH (23:25)
[2017-12-21 01:35] LABS: Basophils % 0.6 %; Eosinophils # 0.5 K/mcL (0.0-0.6); Eosinophils % 9.7 %; Hematocrit 35.5 % (37.5-50.1); Hemoglobin 11.9 g/dL (12.9-16.9); Immature Granulocytes % 0.4 % (0-4); Lymphocytes # 1.3 K/mcL (0.6-4.6); Lymphocytes % 26.6 %; Mean Corpuscular HGB Conc 33.5 g/dL (31.6-35.5); Mean Corpuscular Hemoglobin 29.8 pg (28.0-33.3); Mean Platelet Volume 10.2 fL (9.4-12.4); Monocytes # 0.4 K/mcL (0.0-1.3); Monocytes % 7.8 %; Neutrophils # 2.7 K/mcL (1.6-8.9); Platelet Count 107 K/mcL (140-400); Red Blood Count 3.99 M/mcL (4.19-5.50); Red Cell Distribution Width 13.7 % (11.5-14.5); Segmented Neutrophils % 54.9 %
[2017-12-21 01:42] LABS: INR 1.1; Prothrombin Time 12.6 Seconds (9.4-12.1)
[2017-12-21 02:00] LABS: Alanine Aminotransferase 11 Units/L (7-52); Albumin 4.2 g/dL (3.5-5.7); Albumin/Globulin Ratio 1.2 (1.1-2.2); Alkaline Phosphatase 91 Units/L (34-104); Aspartate Amino Transferase 15 Units/L (13-39); BUN/Creatinine Ratio 16 (6-26); Bilirubin,Total 0.7 mg/dL (0.3-1.0); Blood Urea Nitrogen 15 mg/dL (6-20); Calcium 9.5 mg/dL (8.6-10.3); Carbon Dioxide 23 mEq/L (23-29); Chloride 110 mEq/L (98-107); Globulin 3.4 g/dL (2.4-3.5); Glucose 77 mg/dL (70-105); Magnesium 1.8 mg/dL (1.6-2.6); Osmolality,Calculated 290 (280-300); Potassium 3.8 mEq/L (3.5-5.1); Sodium 140 mEq/L (136-145); Total Protein 7.6 g/dL (6.4-8.9); eGFR For Non-African Americans > 60 (> 60)
[2017-12-21 02:22] LABS: Folate 10.1 ng/mL (3.0-16.0)
[2017-12-21] MEDS: Insulin LISPRO 300 UNITS/3 ML VIAL SQ SCH ×2 (03:59→06:43)
--- NOTE | 2017-12-21 08:42 | Neurology - Consult Note ---
Date of Encounter: 12/21/17 Time of Encounter: 08:20 Assessment and Plan (1) Acute ischemic stroke Current Visit: Yes Status: Acute MRI brain showed acute infarct R medial temporal lobe just lateral to posterior limb internal capsule, severe chronic microvascular white matter disease and multiple old infarcts. Location of the current infarct along with multiple prior subcortical infarcts at 57 years old have to consider CADASIL syndrome on differential. He did not have any focal neurological deficits on exam. He did have L facial droop but he said this is baseline for him from residual affects of 2011 gandhi's palsy. He has multiple risk factors including HTN, DM, HLD, and current smoker. He had 5 cardiac stents placed about 1 month ago and is currently on ticagrelor, asa, atorvastatin, lisinopril, carvedilol and amlodipine at home. Recommend continuation of these medications along with smoking cessation at [place]. His BP was 177/76 last night and 152/89 most recent. Can allow for permssive HTN for 7-10 days in the acute phase. However, it is unknown when the current infarct actually occured. The temporal lobe infarct does place him at risk of future seizures when granulation/scarring occurs providing a possible seizure focus. The risk is not high in the acute phase unless hemorrhagic conversion occurs. He is having carotid duplex today and will get ECHO and PT/OT eval ordered. Code(s): I63.9 - Cerebral infarction, unspecified SNOMED Code(s): 982506541, 621231504 (2) Acute encephalopathy Current Visit: No Status: Acute He does not appear to be encephalopathic today. He does tend to close his eyes but he indicated due to photophobia not inability to keep them open. His MMSE was grossly normal for what was completed. There does not appear to be any toxic or metabolic abnormalities in his labs. Location of his current infarct in unlikely to cause any behavioral changes. Will monitor changes in mental status. Code(s): G93.40 - Encephalopathy, unspecified SNOMED Code(s): 38748512, 037459466 History of Present Illness Chief complaint: Acute R temporal infarct HPI: Mr. Carrillo is a 57 year old male with a pmh significant for HTN, HLD, DM, CAD s/ p 5 stents last month, and CVA's in 2013 with no residual L side deficits and 2016 with no residual speech deficits who neurology was consulted for AMS/ confusion. He says he has had some confusion for ~1 week. He went to [facility] Mon night for lightheadedness and was evaluated and sent home. His confusion was not getting better and decided to come to [place] ED last night. He was drowsy but arousable to voice and labs were not found to be significant on admission. CT head did not show any acute processes. MRI brain showed an acute R medial temporal lobe infarct just lateral to the posterior limb of internal capsule, multiple old infarcts and severe chronic microvascular white matter disease. He said he it has been hard to keep his eyes open the last few days, not because he felt tired but because light has hurt his eyes. He denies any diplopia, blurry vision, BERMUDEZ, dizziness/lightheadedness, trouble speaking, dysphagia, numbness/paresthesias, muscle weakness, facial droop thats worse than his baseline from 2012 bells palsy residual effects, chest pain, palpitations, N/V, feeling off balance, trouble with ambulation, or falls. Past Med Surg Social Fam HX - Past Medical History Medical history: arthritis, COPD, coronary artery disease, CVA, diabetes, GERD, hyperlipidemia, hypertension, syncope, TIA, other Additional medical history: BELLS PALSY Psychiatric history: no psych history - Past Surgical History Surgical History: appendectomy, other (Left knee arthroscopy) Additional surgical history: LEFT KNEE SURGERY, cardiac stents x5 - Social History Smoking Status: Current every day smoker Smokeless Tobacco Status: No Alcohol use: none Drug use: none - Family History Mother Adopted: No Living Status: Hx Family Cardiac Disorders: No Hx Family Respiratory Disorders: No Hx Family Cancer: Yes (BREAST CANCER) Hx Family GI Disorders: No Hx Family Endocrine Disorder: No Hx Family Neuromuscular Disorders: No Hx Family Neurologic Disorders: No Hx Family HEENT Disorders: No Hx Family Autoimmune Disorders: No Son Adopted: No Hx Family Endocrine Disorder: Yes Medications and Allergies Aspirin 81 mg PO DAILY 10/18/16 [History] Gabapentin [Neurontin] 600 mg PO QID 10/18/16 [History] Ibuprofen 800 mg PO TID PRN 11/15/17 [History] Lisinopril [Zestril] 20 mg PO DAILY 11/15/17 [History] Metformin HCl 500 mg PO BID 11/15/17 [History] Carvedilol [Coreg] 12.5 mg PO BIDWM #30 tablet 11/20/17 [Rx] Ticagrelor [Brilinta] 90 mg PO BID #60 tablet 11/20/17 [Rx] Atorvastatin [Lipitor] 20 mg PO HS 12/13/17 [History] Pantoprazole Sodium [Protonix] 20 mg PO DAILY 12/13/17 [History] Celecoxib [Celebrex] 200 mg PO DAILY 12/20/17 [History] amLODIPine [Norvasc] 5 mg PO DAILY 12/20/17 [History] 3 Allergy/AdvReac Type Severity Reaction Status Date / Time No Known Allergies Allergy Verified 12/18/17 22:40 All Systems: The remainder of the systems were reviewed and are negative Physical Examination - Vital Signs Vital Signs: Initial Vital Signs Temp Pulse Resp BP Pulse Ox 98.5 F 74 18 156/88 98 12/20/17 13:46 12/20/17 13:46 12/20/17 13:46 12/20/17 13:46 12/20/17 13:46 - Constitutional General appearance: comfortable - Neurologic Sensorimotor examination: intact Motor examination - right side: 5/5: deltoids, biceps, triceps, wrist flexion, wrist extension, search specialist, hip flexors, tibialis Anterior, quadriceps, toe extension (EHL), plantarflexion Motor examination - left side: 5/5: deltoids, biceps, triceps, wrist flexion, wrist extension, hip flexors, search specialist, quadriceps, tibialis Anterior, toe extension (EHL), plantarflexion Detailed sensory examination: light touch (intact), temperature (intact), vibration (intact) Reflexes: Biceps: 2+, Triceps: 2+, Brachioradialis: 2+, Patella: 2+, Achilles: 2 + Mental Status Examination: oriented to person, oriented to place, oriented to time, follows commands appropriately, answers questions appropriately, no aphasia, drowsy, opens eyes to voice, MMSE (Oriented x3, could spell world forward but not backwards, didnt want to attempt serial 7's, could name objects and repeat correctly, remembered 3/3 words, followed commands, did not do clockface or sentance writing) Cranial nerve examination: PERRL, EOMI, sensory to face intact, no dysarthria, soft palate elevates bilaterally upon phonation, flexes SCM and trapezius muscles symmetrically with full power, tongue protrudes midline, no atrophy or facial fasiculations present, taste anterior 2/3 tongue diminished Cranial Nerve Exam: facial droop: Left Cerebellar examination: no dysmetria, performs finger to nose and heel to mondragon symmetrically without ataxia Results - Laboratory Findings CBC and BMP: 12/21/17 01:01 12/21/17 01:01 Abnormal lab findings: Abnormal lab results RBC 3.99 M/mcL (4.19-5.50) L 12/21/17 01:01 Hgb 11.9 g/dL (12.9-16.9) L 12/21/17 01:01 Hct 35.5 % (37.5-50.1) L 12/21/17 01:01 Plt Count 107 K/mcL (140-400) L 12/21/17 01:01 PT 12.6 Seconds (9.4-12.1) H 12/21/17 01:01 Chloride 110 mEq/L (98-107) H 12/21/17 01:01 HDL Cholesterol 32 mg/dL (40-59) L 12/21/17 01:01 Consult Discharge Plan - Plan Referrals: Xavier Thomas MD [Primary Care Provider] -
[2017-12-21] MEDS ORDERED: Aspirin 81 MG TAB.CHEW PO SCH (09:00)
[2017-12-21] MEDS ORDERED: amLODIPine 5 MG TABLET PO SCH (09:00)
[2017-12-21] MEDS: *HR* Ticagrelor 90 MG TABLET PO SCH (09:11)
--- NOTE | 2017-12-21 10:23 | Internal Med Progress Note ---
<Christoph Radfordbarron A - Last Filed: 12/28/17 19:11> Hospitalist Progress Note - Encounter Date of Encounter: 12/28/17 Time of Encounter: 10:00 - Subjective Interval History: Mr. Carrillo was sitting up eating breakfast upon my arrival. Upon questioning he is alert and oriented x 3 and states that he slept well last night and is feeling good this morning. The patient denies chest pain, shortness of breath, weakness or tingling, abdominal pain, or nausea and vomiting. - Exam Vitals: Temp Pulse Resp BP Pulse Ox 98.2 F 60 16 152/89 98 12/21/17 05:22 12/21/17 05:22 12/21/17 05:22 12/21/17 05:22 12/21/17 05:22 Exam: Head exam: Present: atraumatic, normocephalic Eye exam: Present: PERRL, conjuntiva pink, sclera anicteric Pupils: Present: PERRL Neck exam: Present: supple, trachea midline. Absent: lymphadenopathy Respiratory exam: Present: CTAB. Absent: accessory muscle use, rales, rhonchi, wheezes Cardiovascular exam: Present: RRR, +S1, +S2. Absent: diastolic murmur, gallop, rubs, systolic murmur GI/Abdominal exam: Present: normal bowel sounds, soft, no peritoneal signs. Absent: distended, tenderness Extremities exam: Present: warm, radial pulses palpable and symmetrical. Absent : calf tenderness Neurological exam: Present: CN II-XII intact, oriented X3, no focal deficits, muscles strength 5/5 in upper and lower extremities. Absent: pronater drift, facial droop, speech deficit Skin exam: Present: dry, intact - Assessment and Plan (1) Acute ischemic stroke Status: Acute Assessment and Plan: -Patient was admitted for confusion and AMS for the last week, denied focal weakness of numbness -Head CT showed no acute abnormalities, neurology was consulted and recommended a brain MRI -Brain MRI showed an acute infarct in the right medial temporal lobe, as well as multiple old infarcts -On physical exam the patient is CN II-XII intact, oriented X3, no focal deficits, muscles strength 5/5 in upper and lower extremities bilaterally -Echo showed an LVEF of 60%, normal right ventricle structure and function, no PFO -Patient underwent Carotid ultrasound this morning -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 -Latest blood glucose value was 77 (12/21/17) -Receiving treatment via sliding scale insulin -Continue to monitor blood glucose. (4) CAD (coronary artery disease) Status: Chronic Assessment and Plan: -Patient has had 5 stent placements in the last month -Denies chest pain and EKG was unremarkable -Troponin's have all been negative -Continue Ticagrelor, Aspirin, and Atorvastatin (5) DVT prophylaxis Status: Acute Assessment and Plan: EPCDs - Time Spent with Patient Total time spent is greater than 50% in coordination of care (as documented) at patient's floor/unit and/or counseling patient: Internal Medicine: Result - Labs CBC & Chem 7: 12/21/17 01:01 12/21/17 01:01 - ABG Interpretation ABG results: PT/INR, D-dimer PT 12.6 Seconds (9.4-12.1) H 12/21/17 01:01 - Stroke Is the patient on any antithrombotics?: Yes - VTE Documentation of Mechanical Device: Intermittent pneumatic compression device Consult Discharge Plan - Plan Instructions: Ischemic Stroke (DC) Referrals: Xavier Thomas MD [Primary Care Provider] - 01/03/18 2:00 pm () <Tomas Mojica - Last Filed: 01/03/18 08:04> Hospitalist Progress Note - Encounter Date of Encounter: 12/21/17 - Exam Vitals: Temp Pulse Resp BP Pulse Ox 98.3 F 55 16 154/77 99 12/21/17 12:03 12/21/17 12:03 12/21/17 12:03 12/21/17 12:03 12/21/17 12:03 - Assessment and Plan (1) CVA (cerebral vascular accident) Status: Acute Assessment and Plan: Appreciate neuro input (2) Diabetes mellitus Status: Chronic (3) CAD (coronary artery disease) Status: Chronic (4) HTN (hypertension) Status: Chronic (5) Tobacco abuse Status: Chronic - Time Spent with Patient Total time spent is greater than 50% in coordination of care (as documented) at patient's floor/unit and/or counseling patient: Internal Medicine: Result - Labs CBC & Chem 7: 12/21/17 01:01 12/21/17 01:01 - ABG Interpretation ABG results: PT/INR, D-dimer PT 12.6 Seconds (9.4-12.1) H 12/21/17 01:01 - Attending Attestation Please see discharge summary of this date. <Ranulfo Radford A - Last Filed: 12/28/17 19:11> (2) HTN (hypertension) Qualifiers: Hypertension type: essential hypertension Qualified Code(s): I10 - Essential (primary) hypertension (3) Diabetes mellitus Qualifiers: Diabetes mellitus type: type 2 Diabetes mellitus snf insulin use: without snf use Diabetes mellitus complication status: with hyperglycemia Qualified Code(s): E11.65 - Type 2 diabetes mellitus with hyperglycemia (4) CAD (coronary artery disease) Qualifiers: Coronary Disease-Associated Artery/Lesion type: [place] artery [place] vs. transplanted heart: [place] heart Associated angina: without angina Qualified Code(s): I25.10 - Atherosclerotic heart disease of [place] coronary artery without angina pectoris <Tomas Mojica A - Last Filed: 01/03/18 08:04> (1) CVA (cerebral vascular accident) Qualifiers: CVA mechanism: thrombosis Precerebral and cerebral artery: middle cerebral artery Laterality of affected vessel: right Qualified Code(s): I63.311 - Cerebral infarction due to thrombosis of right middle cerebral artery (2) Diabetes mellitus Qualifiers: Diabetes mellitus type: type 2 Diabetes mellitus snf insulin use: without intermediate teacher use Diabetes mellitus complication status: with hyperglycemia Qualified Code(s): E11.65 - Type 2 diabetes mellitus with hyperglycemia (3) CAD (coronary artery disease) Qualifiers: Coronary Disease-Associated Artery/Lesion type: [place] artery [place] vs. transplanted heart: [place] heart Associated angina: without angina Qualified Code(s): I25.10 - Atherosclerotic heart disease of [place] coronary artery without angina pectoris (4) HTN (hypertension) Qualifiers: Hypertension type: essential hypertension Qualified Code(s): I10 - Essential (primary) hypertension
--- NOTE | 2017-12-21 11:44 | Electrocardiograph Report ---
[place] [id number] Test Date: 2017-12-20 Pat Name: Devante Carrillo Department: Room: 2NE21 Gender: M Adobe Flex Developer: : [id number] Requested By: Meli Iqbal Order Number: [id number] Reading MD: Erum Deutsch Measurements Intervals [place] Rate: 70 P: 11 [place]: 162 QRS: -4 QRSD: 93 T: 60 QT: 394 QTc: 426 Interpretive Statements Sinus rhythm RSR' in V1 or V2, right VCD Electronically Signed On 12-21-2017 11:43:18 EDT by Erum Deutsch
[2017-12-21 12:08] VITALS: BP 154/77
--- NOTE | 2017-12-21 13:08 | Discharge Summary ---
- NOTES TO OUTPATIENT PROVIDER Notes to Outpatient Provider: Mr Carrillo was admitted with confusion and found to have new CVA. He was evaluated by neuro and continued on same medications. He is to follow up in the office. Date of Encounter: 12/21/17 Time of Encounter: 11:45 - Discharge Diagnosis (1) CVA (cerebral vascular accident) Priority: Primary Status: Acute Qualifiers: CVA mechanism: thrombosis Precerebral and cerebral artery: middle cerebral artery Laterality of affected vessel: right Qualified Code(s): I63.311 - Cerebral infarction due to thrombosis of right middle cerebral artery (2) Diabetes mellitus Priority: Secondary Status: Chronic Qualifiers: Diabetes mellitus type: type 2 Diabetes mellitus chcf insulin use: without chcf use Diabetes mellitus complication status: with hyperglycemia Qualified Code(s): E11.65 - Type 2 diabetes mellitus with hyperglycemia (3) CAD (coronary artery disease) Priority: Secondary Status: Chronic Qualifiers: Coronary Disease-Associated Artery/Lesion type: [place] artery [place] vs. transplanted heart: [place] heart Associated angina: without angina Qualified Code(s): I25.10 - Atherosclerotic heart disease of [place] coronary artery without angina pectoris (4) HTN (hypertension) Priority: Secondary Status: Chronic Qualifiers: Hypertension type: essential hypertension Qualified Code(s): I10 - Essential (primary) hypertension (5) Tobacco abuse Priority: Secondary Status: Chronic Hospital course: Mr. Carrillo is a 57 year old male with hx of CAD and CVA presented to ED due to confusion. He was subsequently admitted for further work up. Mr Carrillo was admitted to [facility]. He was monitored and was evaluated by neuro. He had MRI showing new stroke. His confusion improved and he was seen by PT/OT and no needs identified. At this time he feels baseline. He is afebrile and ready for discharge home. Discharge discussed with: patient, family Time spent discussing smoking cessation with patient: 3 to 10 minutes - Time Spent with Patient Total time spent providing and/or coordinating discharge services: 39min - Discharge Medications Home Medications: Aspirin 81 mg PO DAILY 10/18/16 [History] Gabapentin [Neurontin] 600 mg PO QID 10/18/16 [History] Lisinopril [Zestril] 20 mg PO DAILY 11/15/17 [History] Metformin HCl 500 mg PO BID 11/15/17 [History] Carvedilol [Coreg] 12.5 mg PO BIDWM #30 tablet 11/20/17 [Rx] Ticagrelor [Brilinta] 90 mg PO BID #60 tablet 11/20/17 [Rx] Atorvastatin [Lipitor] 20 mg PO HS 12/13/17 [History] Pantoprazole Sodium [Protonix] 20 mg PO DAILY 12/13/17 [History] amLODIPine [Norvasc] 5 mg PO DAILY 12/20/17 [History] Allergies/Adverse Reactions: 3 Allergy/AdvReac Type Severity Reaction Status Date / Time No Known Allergies Allergy Verified 12/18/17 22:40 Date of admission: 12/21/17 01:14 Primary care physician: Xavier Thomas MD Consults: 12/21/17 11:44 Consult to Physical Therapy [CONS] Stat Comment: Evaluate, develop and implement POC Reason for Consult: S/p CVA Does patient have active BEDREST order?: No Is patient medically & hemodynamically stable?: No Patient assessed for mobility or mobilized this visit?: No Discharging clinician: Tomas Mojica Anticipated date of discharge: 12/21/17 - Constitutional Vitals: Temp Pulse Resp BP Pulse Ox 98.3 F 55 16 154/77 99 12/21/17 12:03 12/21/17 12:03 12/21/17 12:03 12/21/17 12:03 12/21/17 12:03 General appearance: Present: A&O X 3, answers questions appropriately Exam: See below - Head Head exam: Present: atraumatic, normocephalic - Eye Eye exam: Present: conjuntiva pink - ENT ENT exam: Present: mucous membranes moist - Neck Neck exam general surgery: Present: normal inspection - Respiratory Respiratory exam: Present: CTAB. Absent: rales, rhonchi, wheezes - Cardiovascular Cardiovascular exam: Present: RRR. Absent: tachycardia - GI/Abdominal GI/Abdominal exam: Present: soft. Absent: tenderness - Extremities Exam Extremities exam: Present: warm. Absent: tenderness - Neurological Exam Neurological exam: Present: alert, oriented X3 - Skin Skin exam: Present: dry, warm - Patient Status Disposition: Home, Self-Care Condition: Fair Functional capacity at discharge: independent ambulation Overall status at discharge: patient is progressing back to baseline - Discharge Instructions Instructions: Ischemic Stroke (DC) Follow Up With: Xavier Thomas MD [Primary Care Provider] - 01/03/18 2:00 pm () - Diet and Activity Activity: increase activity as tolerated Diet: advance to your usual diet - Stroke Is the patient on any antithrombotics?: Yes Are there any contradictions to antithrombotics?: No Has Patient Been Evaluated by Rehab for Stroke: Yes Contraindication Rehab Services Not Assessed: Returned to Prior Level of Function - VTE Documentation of Mechanical Device: Intermittent pneumatic compression device
[2017-12-21] MEDS ORDERED: Insulin LISPRO 300 UNITS/3 ML VIAL SQ SCH ×2 (16:30→21:00)
== END 2017-12-21 14:13 | disposition home or self-care (01) | DRG 64 ==
LOC: 3ANU 13:44 → EMEROOARM 13:44 → 3ANU 18:16 → 2NENU 20:32 → SUATTDRO 12-21 01:14
PROVIDERS: ADMIT Internal Medicine; ATTEND Internal Medicine

== ENCOUNTER 2018-10-31 07:11 | Observation (INO) ==
[2018-10-31] MEDS ORDERED: Aspirin 325 MG TABLET PO ONE (07:13)
[2018-10-31 07:33] LABS: Basophils % 0.5 %; Eosinophils # 0.3 K/mcL (0.0-0.6); Eosinophils % 5.4 %; Hematocrit 36.4 % (37.5-50.1); Hemoglobin 11.9 g/dL (12.9-16.9); Immature Granulocytes % 0.4 % (0-4); Lymphocytes # 1.1 K/mcL (0.6-4.6); Lymphocytes % 20.1 %; Mean Corpuscular HGB Conc 32.7 g/dL (31.6-35.5); Mean Corpuscular Hemoglobin 29.4 pg (28.0-33.3); Mean Corpuscular Volume 89.9 fL (83.0-100.0); Mean Platelet Volume 9.7 fL (9.4-12.4); Monocytes # 0.5 K/mcL (0.0-1.3); Monocytes % 9.2 %; Neutrophils # 3.6 K/mcL (1.6-8.9); Platelet Count 167 K/mcL (140-400); Red Blood Count 4.05 M/mcL (4.19-5.50); Red Cell Distribution Width 12.9 % (11.5-14.5); Segmented Neutrophils % 64.4 %; White Blood Count 5.5 K/mcL (4.3-11.1)
[2018-10-31 07:39] LABS: Prothrombin Time 11.8 Seconds (9.4-12.1)
[2018-10-31 07:41] LABS: Activated Partial Thrombo Time 31.4 Seconds (26.0-36.0)
--- NOTE | 2018-10-31 07:45 | Emergency Department Note ---
Disposition Clinical Impression: Chest pain Qualifiers: Chest pain type: unspecified Qualified Code(s): R07.9 - Chest pain, unspecified Disposition: Admitted As Inpatient Condition: Good Referrals: NONE,PCP [Primary Care Provider] - Forms: ED Satisfaction Letter Time of Disposition: 08:18 Chest Pain HPI - General Chief Complaint: ED Chest Pain Stated Complaint: "Discomfort in my chest" Time Seen by Provider: 10/31/18 07:12 Source: patient Limitations: no limitations Vital Signs Reviewed: Yes Nursing Notes Reviewed: Yes - History of Present Illness HPI Narrative: 58 year old male presents to the ED with complaints of chest pain that started at 0330 this morning while 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 Koffi has a history of 5 cardiac stents that were placed and the most recent one was from one year ago by Dr. hector. he follows with [facility]. Koffi states that since 0330 this morning anytime he exerts himself the chest discomfort which radiates into the left shoulder worsened. He appears midly diaphoretic at bedside and states that he does have exetional dyspnea. He has HTN, high cholesterol, diabetes, and smokes, with a family history concening for ACS. Koffi states that he already takes ASA and plavix at home for therapy. States he is currently chest pain free. Koffi dnies fvers, cough, cold, congestion, abdominal pain, nausea, or vomitting. Koffi is resting comfortably at bedside. He states that this feels similar to his events in the past. Severity scale (1-10): 0 - Related Data Home Medications Medication Instructions Recorded Confirmed Aspirin 81 mg PO DAILY 10/18/16 02/24/18 Gabapentin [Neurontin] 600 mg PO QID 10/18/16 10/31/18 Lisinopril [Zestril] mg PO DAILY 11/15/17 02/24/18 Metformin HCl 1,000 mg PO BID 11/15/17 10/31/18 Pantoprazole Sodium [Protonix] 20 mg PO DAILY 12/13/17 10/31/18 amLODIPine [Norvasc] 5 mg PO DAILY 12/20/17 10/31/18 Ibuprofen [Motrin] 800 mg PO Q8HR 10/31/18 10/31/18 Previous Rx's Medication Instructions Recorded Carvedilol [Coreg] 12.5 mg PO BIDWM #30 tablet 11/20/17 Allergies Allergy/AdvReac Type Severity Reaction Status Date / Time No Known Allergies Allergy Verified 10/31/18 07:25 Constitutional: Reports: weakness. Denies: fever, chills, weight change Eyes: Denies: eye pain, eye discharge, vision change ENT ED: Denies: ear pain, throat pain, dental pain, hearing loss, epistaxis, congestion, dysphagia Cardiovascular: Reports: chest pain, dyspnea on exertion. Denies: palpitations, edema, syncope Respiratory: Denies: cough, dyspnea, wheezes, hemoptysis, stridor Gastrointestinal: Denies: abdominal pain, nausea, vomiting, diarrhea, constipation, hematemesis, melena, hematochezia Genitourinary: Denies: urgency, dysuria, frequency, hematuria Musculoskeletal: Denies: back pain, neck pain, arthralgia, myalgia Integumentary: Denies: rash, abrasion, lesions Neurological: Denies: headache, weakness, numbness, paresthesias, confusion, abnormal gait, vertigo Psychiatric: Denies: anxiety, depression, suicidal thoughts, homicidal thoughts, auditory hallucinations, visual hallucinations Endocrine: Denies: fatigue Hematological/Lymphatic: Denies: easy bleeding, easy bruising Allergic/Immunologic: Denies: facial swelling, urticaria Chest Pain PMH - Past Medical History Medical history: Reports: arthritis, COPD, coronary artery disease, CVA, diabetes, GERD, hyperlipidemia, hypertension, syncope, TIA, other Surgical history: Reports: appendectomy, other (Left knee arthroscopy) Psychiatric history: Reports: no psych history - Social History Smoking Status: Current every day smoker Alcohol use: Reports: none Drug use: Reports: none Physical Exam - General Limitations: no limitations General appearance: alert - Head Head exam: atraumatic, normocephalic, normal inspection - Eye Eye exam: Present: normal appearance, PERRL, EOMI - Expanded Eye Exam Pupils: Bilateral: reactive - ENT ENT exam: normal exam, normal oropharynx, mucous membranes moist - Expanded ENT Exam External ear exam: Present: normal external inspection Mouth exam: Present: normal external inspection Teeth exam: Present: normal inspection Throat exam: Present: normal inspection - Neck Neck exam: Present: normal inspection, full ROM, trachea midline - Chest Chest inspection: Present: normal inspection, symmetric chest wall rise - Respiratory Respiratory exam: Present: normal lung sounds bilaterally - Cardiovascular Cardiovascular exam: Present: regular rate, normal rhythm, normal heart sounds - Abdominal Exam Abdominal exam: Present: soft, Non-Tender. Absent: tenderness, distention, guarding, rebound, rigidity - Extremities Exam Extremities exam: Present: normal inspection, full ROM. Absent: tenderness, pedal edema - Expanded Upper Extremity Exam Shoulder exam: Present: normal inspection, full ROM Arm exam: Present: normal inspection, full ROM Elbow exam: Present: normal inspection, full ROM Forearm/Wrist exam: Present: normal inspection, full ROM Hand exam: Present: normal inspection, full ROM Vascular exam: Normal: capillary refill, radial pulse - Expanded Lower Extremity Exam Hip/Pelvis exam: Present: normal inspection, full ROM Upper leg exam: Present: normal inspection, full ROM Knee exam: Present: normal inspection, full ROM Lower leg exam: Present: normal inspection, full ROM Ankle exam: Present: normal inspection, full ROM Foot/toe exam: Present: normal inspection, full ROM Neurovascular/Tendon exam: Absent: motor deficit, sensory deficit, tendon deficit - Back Exam Back exam: Present: normal inspection, full ROM. Absent: tenderness - Neurological Exam Neurological exam: Present: alert, oriented X3 - Expanded Neurological Exam Patient oriented to: Present: person, place, time Coma Scale Eye Opening: Spontaneous Coma Scale Motor Response: Obeys Commands Coma Scale Verbal Response: Oriented Coma Scale Total: 15 - Psychiatric Psychiatric exam: Present: normal affect, normal mood - Skin Skin exam: Present: warm, dry, intact, normal color Course Course Narrative: I elena do a cardiopulmonary workup. He has a high heart score and will require admission to the hospital for further workup. ASA therapy given at bedside. Currently chest pain free - Consultations Consultation #1: discussed case with Dr. Glover and she accepts patient to her service for admission. Time: 08:18 Vital Signs Temperature 98.1 F 10/31/18 07:16 Pulse Rate 74 10/31/18 07:16 Respiratory Rate 16 10/31/18 07:16 Blood Pressure 155/97 10/31/18 07:16 O2 Sat by Pulse Oximetry 95 10/31/18 07:16 Temperature 98.1 F 10/31/18 07:16 Pulse Rate 68 10/31/18 07:53 Respiratory Rate 16 06/25/19 07:53 Blood Pressure 146/83 10/31/18 07:53 O2 Sat by Pulse Oximetry 95 10/31/18 07:16 Oxygen Delivery Oxygen Delivery Room Air Chest Pain - Medical Records Medical records reviewed: Yes I reviewed the patient's medical records. - Lab Data Lab results reviewed: Yes I reviewed the patient's lab results. Result diagrams: 10/31/18 07:20 10/31/18 07:20 Lab Results 10/31/18 10/31/18 10/31/18 Range/Units 07:20 07:20 07:20 WBC 5.5 (4.3-11.1) K/mcL RBC 4.05 L (4.19-5.50) M/mcL Hgb 11.9 L (12.9-16.9) g/dL Hct 36.4 L (37.5-50.1) % MCV 89.9 (83.0-100.0) fL MCH 29.4 (28.0-33.3) pg MCHC 32.7 (31.6-35.5) g/dL RDW 12.9 (11.5-14.5) % Plt Count 167 (140-400) K/mcL MPV 9.7 (9.4-12.4) fL Immature Gran % 0.4 (0-4) % Seg Neutrophils % 64.4 % Lymphocytes % 20.1 % Monocytes % 9.2 % Eosinophils % 5.4 % Basophils % 0.5 % Neutrophils # 3.6 (1.6-8.9) K/mcL Lymphocytes # 1.1 (0.6-4.6) K/mcL Monocytes # 0.5 (0.0-1.3) K/mcL Eosinophils # 0.3 (0.0-0.6) K/mcL Basophils # 0.0 (0.0-0.2) K/mcL PT 11.8 (9.4-12.1) Seconds INR 1.0 APTT 31.4 (26.0-36.0) Seconds Sodium 141 (136-145) mEq/L Potassium 4.0 (3.5-5.1) mEq/L Chloride 104 (98-107) mEq/L Carbon Dioxide 25 (23-29) mEq/L BUN 24 H (6-20) mg/dL Creatinine 1.38 H (0.70-1.30) mg/dL Est GFR ( Amer) > 60 (> 60) Est GFR (Non-Af Amer) 53 L (> 60) BUN/Creatinine Ratio 17 (6-26) Glucose 125 H (70-105) mg/dL Calculated Osmolality 298 (280-300) Calcium 10.1 (8.6-10.3) mg/dL Troponin I < 0.03 (< 0.04) ng/mL Lipase 35 (11-82) Units/L - Radiology Data Radiology results reviewed: Yes I reviewed the patient's radiology results. - EKG Data EKG attestation: Yes I reviewed and interpreted this EKG. EKG results narrative: NSR with rate of 72. NO STeMI. normla intervals. no change from 02/24/18.0716 Heart Score - Score History: Highly Suspicious EKG: Non Specific repolarisation Disturbance Age: 45-65 Risk Factors: Equal/Greater than 3 risk factor or history of atherosclerotic disease Troponin: Less than normal limit HEART Score Total: 6
[2018-10-31 07:53] LABS: BUN/Creatinine Ratio 17 (6-26); Blood Urea Nitrogen 24 mg/dL (6-20); Calcium 10.1 mg/dL (8.6-10.3); Carbon Dioxide 25 mEq/L (23-29); Chloride 104 mEq/L (98-107); Glucose 125 mg/dL (70-105); Lipase 35 Units/L (11-82); Osmolality,Calculated 298 (280-300); Sodium 141 mEq/L (136-145); eGFR For African Americans > 60 (> 60); eGFR For Non-African Americans 53 (> 60)
[2018-10-31 07:54] LABS: Troponin I < 0.03 ng/mL (< 0.04)
--- NOTE | 2018-10-31 08:21 | Internal Med History&Physical ---
<Alyse Ochoa - Last Filed: 10/31/18 11:23> Date of Encounter: 10/31/18 Time of Encounter: 08:20 Internal Medicine - H&P: HPI Chief complaint: chest pain Admitted From: Emergency Dept Plans for Post Hospital Care: Home History of present illness: Mr. Carrillo is a 58 year old male with PMHx of type 2 DM, CVA, HTN, GERD, tobacco abuse, CAD with history of stent placement x5 in november 2017. Patient arrived to the ED with chief complaint of chest pain that started yesterday evening while he was at work. chest pain was substernal and described as a dull ache. he got better when he sat down to rest and re started when he got up again to go about his activities. He states the chest pain radiates to the right arm. He denies nausea, vomiting, diarrhea, fever, chills, chest pain, shortness of breath, hematochezia, melena, hematuria. Past Med Surg Social Fam HX - Past Medical History Medical history: arthritis, COPD, coronary artery disease, CVA, diabetes, GERD, hyperlipidemia, hypertension, syncope, TIA, other Additional medical history: Jenkins's [place]alse[place]. Psychiatric history: no psych history - Past Surgical History Surgical History: appendectomy, other (Left knee arthroscopy) Additional surgical history: LEFT KNEE SURGERY, cardiac stents x5, Heart cath - Social History Smoking Status: Current every day smoker Smokeless Tobacco Status: No Alcohol use: none Drug use: none - Family History Mother Adopted: No Living Status: Hx Family Cardiac Disorders: No Hx Family Respiratory Disorders: No Hx Family Cancer: Yes (BREAST CANCER) Hx Family GI Disorders: No Hx Family Endocrine Disorder: No Hx Family Neuromuscular Disorders: No Hx Family Neurologic Disorders: No Hx Family HEENT Disorders: No Hx Family Autoimmune Disorders: No Son Adopted: No Hx Family Endocrine Disorder: Yes Father Living Status: Age at : 75 Cause of : [place] Hx Family Cardiac Disorders: Yes Internal Medicine - H&P: Meds Aspirin 81 mg PO DAILY 10/18/16 [History] Gabapentin [Neurontin] 600 mg PO QID 10/18/16 [History] Lisinopril [Zestril] 20 mg PO DAILY 11/15/17 [History] amLODIPine [Norvasc] 5 mg PO DAILY 12/20/17 [History] Carvedilol [Coreg] 25 mg PO BID 10/31/18 [History] Clopidogrel [Plavix] 75 mg PO DAILY 10/31/18 [History] Ezetimibe [Zetia] 10 mg PO DAILY 10/31/18 [History] LORazepam [Ativan] 0.5 mg PO DAILY PRN 10/31/18 [History] Metformin HCl 1,000 mg PO BIDWM 10/31/18 [History] Pantoprazole Sodium 40 mg PO DAILY 10/31/18 [History] Isosorbide MONOnitrate (24 HR) [Imdur] 30 mg PO DAILY #30 tab.er.24h 11/01/18 [Rx] Nicotine Patch [Nicoderm] 21 mg TD DAILY #30 patch.td24 11/01/18 [Rx] Allergy/AdvReac Type Severity Reaction Status Date / Time No Known Allergies Allergy Verified 10/31/18 16:06 All Systems PM: A 10-system review of systems was performed and is negative for pertinent findings except as documented above in the HPI. - Constitutional Constitutional: as per HPI - EENT Eyes: as per HPI Ears: as per HPI Nose, mouth and throat: as per HPI - Breasts Breasts: as per HPI - Cardiovascular Cardiovascular ROS IM: as per HPI - Respiratory Respiratory: as per HPI - Gastrointestinal Gastrointestinal: as per HPI - Genitourinary Genitourinary ROS male: as per HPI - Musculoskeletal Musculoskeletal ROS IM: as per HPI - Integumentary Integumentary IM: as per HPI - Neurological Neurological ROS: as per HPI - Psychiatric Psychiatric: as per HPI - Endocrine Endocrine IM: as per HPI - Hematologic/Lymphatic Hematologic/Lymphatic: as per HPI - Allergic/Immunologic Allergic/Immunologic: as per HPI - Constitutional Vitals: Temp Pulse Resp BP Pulse Ox 98.1 F 68 16 146/83 95 10/31/18 07:16 10/31/18 07:53 10/31/18 07:53 10/31/18 07:53 10/31/18 07:16 Exam: alert and oriented x3, pleasant. - Head Head exam: Present: atraumatic, normocephalic - Neck Neck exam general surgery: Present: supple, trachea midline - Respiratory Respiratory exam: Present: CTAB - Cardiovascular Cardiovascular exam: Present: RRR, +S1, +S2 - GI/Abdominal GI/Abdominal exam: Present: normal bowel sounds, soft. Absent: distended, tenderness - Extremities Exam Extremities exam: Absent: cyanotic, pedal edema - Neurological Exam Neurological exam: Present: alert, oriented X3, no focal deficits - Psychiatric Psychiatric exam: Present: normal affect, normal mood Internal Med - H&P Results - Labs CBC & Chem 7: 10/31/18 07:20 10/31/18 07:20 Labs: Short CBC 10/31/18 Range/Units 07:20 WBC 5.5 (4.3-11.1) K/mcL Hgb 11.9 L (12.9-16.9) g/dL Hct 36.4 L (37.5-50.1) % Plt Count 167 (140-400) K/mcL Neutrophils # 3.6 (1.6-8.9) K/mcL BMP 10/31/18 07:20 Sodium 141 Potassium 4.0 Chloride 104 Carbon Dioxide 25 BUN 24 H Creatinine 1.38 H Glucose 125 H Calcium 10.1 Cardiac Enzymes 10/31/18 Range/Units 07:20 Troponin I < 0.03 (< 0.04) ng/mL - Impressions ITS Impressions Chest X-Ray 10/31/18 07:12 IMPRESSION: 1. No active pulmonary disease. 2. Stable cardiomegaly without overt failure. D/ / Robby Cramer MD / Robby Cramer MD Interpreting Provider: Robby Cramer MD - Assessment and Plan (1) Chest pain Status: Acute Assessment and plan: typical chest pain that started last night. WOODROW score: 3 CXR unremarkable. EKG reviewed: no ischemic changes Plan: admit to obs trend troponins NPO after midnight. if no elevation in troponins, can order nuclear stress test. Qualifiers: Chest pain type: unspecified Qualified Code(s): R07.9 - Chest pain, unspecified (2) FIDE (acute kidney injury) Status: Acute Assessment and plan: kidney function has been normal in the past, may have component of baseline CKd Plan IV fluid hydration order urine sodium, urine Cr. avoid nephrotoxins follow renal protective strategy. (3) HTN (hypertension) Status: Chronic Assessment and plan: continue amlodipine. Qualifiers: Hypertension type: essential hypertension Qualified Code(s): I10 - Essential (primary) hypertension (4) GERD (gastroesophageal reflux disease) Status: Chronic Assessment and plan: continue prilosec Qualifiers: Esophagitis presence: esophagitis presence not specified Qualified Code(s): K21.9 - Gastro-esophageal reflux disease without esophagitis (5) Diabetes mellitus Status: Chronic Assessment and plan: hold metformin low dose sliding scale insulin ACHS accuchecks ADA diet Qualifiers: Diabetes mellitus type: type 2 Diabetes mellitus terminal operator insulin use: without terminal operator use Diabetes mellitus complication status: with hyperglycemia Qualified Code(s): E11.65 - Type 2 diabetes mellitus with hyperglycemia (6) Tobacco abuse Status: Chronic Assessment and plan: patient counseled extensively on tobacco use and its associated risks with heart disease. smoking cessation advised nicotine patch (7) CAD (coronary artery disease) Status: Chronic Assessment and plan: continue ASA, beta kenisha start high intensity statin Qualifiers: Coronary Disease-Associated Artery/Lesion type: [place] artery [place] vs. t ransplanted heart: [place] heart Associated angina: without angina Qualified Code(s): I25.10 - Atherosclerotic heart disease of [place] coronary artery without angina pectoris (8) DVT prophylaxis Status: Acute Assessment and plan: heparin SQ - Time Spent With Patient Total time spent is greater than 50% in coordination of care (as documented) at patient's floor/unit and/or counseling patient: - Stroke Is the patient on any antithrombotics?: No Are there any contradictions to antithrombotics?: No <Marialuisa Glover - Last Filed: 11/03/18 06:44> Date of Encounter: 10/31/18 Internal Medicine - H&P: HPI History of present illness: Mr. Carrillo is a 58 year old male All Systems PM: A 10-system review of systems was performed and is negative for pertinent findings except as documented above in the HPI. - Constitutional Vitals: Temp Pulse Resp BP Pulse Ox 98.2 F 72 16 139/86 96 11/01/18 15:39 11/01/18 15:39 11/01/18 15:39 11/01/18 15:39 11/01/18 15:39 Internal Med - H&P Results - Labs CBC & Chem 7: 06/26/19 01:55 11/01/18 01:55 - Impressions ITS Impressions Chest X-Ray 10/31/18 07:12 IMPRESSION: 1. No active pulmonary disease. 2. Stable cardiomegaly without overt failure. D/ / Robby Cramer MD / Robby Cramer MD Interpreting Provider: Robby Cramer MD - Assessment and Plan (1) CVA (cerebral infarction) Status: Chronic Qualifiers: Cerebral infarction mechanism: unspecified mechanism Qualified Code(s): I63.9 - Cerebral infarction, unspecified (2) HTN (hypertension) Status: Chronic Qualifiers: Hypertension type: essential hypertension Qualified Code(s): I10 - Essential (primary) hypertension (3) GERD (gastroesophageal reflux disease) Status: Chronic Qualifiers: Esophagitis presence: esophagitis presence not specified Qualified Code(s): K21.9 - Gastro-esophageal reflux disease without esophagitis (4) FIDE (acute kidney injury) Status: Acute (5) Diabetes mellitus Status: Chronic Qualifiers: Diabetes mellitus type: type 2 Diabetes mellitus residential insulin use: without residential use Diabetes mellitus complication status: with hyperglycemia Qualified Code(s): E11.65 - Type 2 diabetes mellitus with hyperglycemia (6) Chest pain Status: Acute Qualifiers: Chest pain type: unspecified Qualified Code(s): R07.9 - Chest pain, unspecified (7) Abnormal stress test Status: Acute (8) CAD (coronary artery disease) Status: Chronic Qualifiers: Coronary Disease-Associated Artery/Lesion type: [place] artery [place] vs. transplanted heart: [place] heart Associated angina: with stable angina Qualified Code(s): I25.118 - Atherosclerotic heart disease of [place] coronary artery with other forms of angina pectoris - Time Spent With Patient Total time spent is greater than 50% in coordination of care (as documented) at patient's floor/unit and/or counseling patient: - Attending Attestation I performed a history and physical examination of the patient and discussed his management with the resident. I reviewed the residents note and agree with the documented findings and plan of care.
[2018-10-31] MEDS ORDERED: Dextrose Gel 15 GM/37.5 ML TUBE PO PRN ×2 (08:47)
[2018-10-31] MEDS ORDERED: Acetaminophen 325 MG TABLET PO PRN (08:47)
[2018-10-31] MEDS ORDERED: D5% in Water 1,000 ML IVC PRN (08:47)
[2018-10-31] MEDS ORDERED: Naloxone 0.4 MG/ML INJ IVP PRN (08:47)
[2018-10-31] MEDS ORDERED: Ondansetron 4 MG/2 ML VIAL IVP PRN (08:47)
[2018-10-31] MEDS ORDERED: *HR* Dextrose 50 % in Water (Syg) 50 ML SYRINGE IVP PRN (08:47)
[2018-10-31 11:15] LABS: Sodium, Urine 87.6 mEq/L
[2018-10-31 11:24] LABS: Bilirubin,Urine Small (Negative); Blood,Urine Negative (Negative); Clarity,Urine Clear (Clear); Color,Urine Yellow (Yellow); Glucose,Urine (UA) 100 mg/dL (Normal); Ketones,Urine Trace mg/dL (Negative); Leukocyte Esterase,Urine Negative (Negative); Nitrite,Urine Negative (Negative); PH,Urine 5.5 pH Units (5.0-8.0); Protein,Urine 30 mg/dL (Neg-Trace); Specific Gravity,Urine 1.029 (1.010-1.025); Urobilinogen,Urine Normal (Normal)
[2018-10-31 11:27] LABS: Bacteria,Urine None Seen per hpf (None-Few); Hyaline Casts,Urine Few per lpf (None-Few); Squamous Epithelial Cell,Urine Many per lpf (None-Few); WBC,Urine 0-3 per hpf (0-3)
[2018-10-31] MEDS ORDERED: 0.9 % Sodium Chloride 1,000 ML IVC SCH (11:45)
[2018-10-31] MEDS: Aspirin 81 MG TAB.CHEW PO SCH (12:06)
[2018-10-31] MEDS: Nicotine 21 MG PATCH.TD24 TD SCH (12:06)
[2018-10-31] MEDS: amLODIPine 5 MG TABLET PO SCH (12:23)
[2018-10-31] MEDS: Insulin LISPRO 300 UNITS/3 ML VIAL SQ SCH ×2 (13:25→17:40)
[2018-10-31] MEDS: *HR* Heparin 5,000 UNIT/ML VIAL SQ SCH (17:20)
[2018-10-31] MEDS ORDERED: Insulin LISPRO 300 UNITS/3 ML VIAL SQ SCH (21:00)
[2018-11-01 02:48] LABS: Hematocrit 33.6 % (37.5-50.1); Mean Corpuscular HGB Conc 32.7 g/dL (31.6-35.5); Mean Corpuscular Hemoglobin 29.7 pg (28.0-33.3); Mean Corpuscular Volume 90.8 fL (83.0-100.0); Platelet Count 137 K/mcL (140-400); Red Cell Distribution Width 12.5 % (11.5-14.5); White Blood Count 4.4 K/mcL (4.3-11.1)
[2018-11-01 03:13] LABS: BUN/Creatinine Ratio 17 (6-26); Blood Urea Nitrogen 18 mg/dL (6-20); Calcium 9.4 mg/dL (8.6-10.3); Carbon Dioxide 24 mEq/L (23-29); Chloride 106 mEq/L (98-107); Glucose 88 mg/dL (70-105); Magnesium 1.7 mg/dL (1.6-2.6); Osmolality,Calculated 285 (280-300); Phosphorous 3.6 mg/dL (2.7-4.5); Potassium 3.9 mEq/L (3.5-5.1); Sodium 137 mEq/L (136-145); eGFR For African Americans > 60 (> 60); eGFR For Non-African Americans > 60 (> 60)
[2018-11-01] MEDS: *HR* Heparin 5,000 UNIT/ML VIAL SQ SCH (05:36)
[2018-11-01] MEDS: Insulin LISPRO 300 UNITS/3 ML VIAL SQ SCH ×2 (08:25→12:46)
[2018-11-01] MEDS: amLODIPine 5 MG TABLET PO SCH (09:45)
[2018-11-01] MEDS: Aspirin 81 MG TAB.CHEW PO SCH (09:45)
[2018-11-01] MEDS: Nicotine 21 MG PATCH.TD24 TD SCH (09:45)
[2018-11-01] MEDS ORDERED: Regadenoson 0.4 MG/5 ML SYRINGE IVP ONE ×2 (12:31→12:34)
[2018-11-01] MEDS ORDERED: *HR* LORazepam 0.5 MG TABLET PO PRN (14:29)
--- NOTE | 2018-11-01 14:35 | Internal Med Progress Note ---
Hospitalist Progress Note - Encounter Date of Encounter: 11/01/18 Time of Encounter: 14:31 - Subjective Interval History: Mr. Carrillo is a 58 year old male with PMHx of type 2 DM, CVA, HTN, GERD, tobacco abuse, CAD with history of stent placement x5 in november 2017. Patient arrived to the ED with chief complaint of chest pain that started yesterday evening while he was at work. chest pain was substernal and described as a dull ache. he got better when he sat down to rest and re started when he got up again to go about his activities. He states the chest pain radiates to the right arm. He was admitted in the hospital and placed him on patient monitor. his serial troponin came back as negative. His EKG showed nonspecific ST changes. He denied any more active CP since he came to the floor. - Exam Vitals: Temp Pulse Resp BP Pulse Ox 98.3 F 64 16 129/81 96 11/01/18 11:08 11/01/18 11:08 11/01/18 11:08 11/01/18 11:08 11/01/18 11:08 Exam: Gen: Alert, awake, Oriented to time,place and person Chest: Diminished breath sounds B/L, No wheezing, No crackles, No rales Heart: S1S2+ RRR No murmurs Abd: Soft, NT, BS +, No organomegaly Ext: No edema, pulses are palpable, No calf tenderness Neuro : No acute focal neuro deficits noticed Skin: No rash. - Assessment and Plan (1) Chest pain Current Visit: Yes Status: Acute Assessment and Plan: Serial troponin were negative Since he is high risk for ACS, he did go for nuclear stress test which came back as abnormal consutled card for further eval cont ASA, Plavix, Coreg , and Lipitor (2) Abnormal stress test Current Visit: No Status: Acute Assessment and Plan: reviewed his stress test came back as slightly abnormal with small sized, mild intensity, reversible apex and apical lateral perfusion defect suggestive of a small area of ischemia. SDS 3. Consulted cardiology for further eval (3) FIDE (acute kidney injury) Current Visit: No Status: Acute Assessment and Plan: resolved with IV hydration (4) CAD (coronary artery disease) Current Visit: No Status: Chronic Assessment and Plan: resumed all home medications ASA, Plavix, Coreg and statin (5) Diabetes mellitus Current Visit: No Status: Chronic Assessment and Plan: on ADA diet Will check HbA1C in AM on ISS Well controlled BS (6) HTN (hypertension) Current Visit: No Status: Chronic Assessment and Plan: Stable BP with current meds continue home medications (7) CVA (cerebral infarction) Current Visit: No Status: Chronic Assessment and Plan: cont home med ASA + Plavix (8) GERD (gastroesophageal reflux disease) Current Visit: No Status: Chronic Assessment and Plan: on PPI - Time Spent with Patient Total time spent is greater than 50% in coordination of care (as documented) at patient's floor/unit and/or counseling patient: Internal Medicine: Result - Labs CBC & Chem 7: 11/01/18 01:55 11/01/18 01:55 Labs: Short CBC 11/01/18 Range/Units 01:55 WBC 4.4 (4.3-11.1) K/mcL Hgb 11.0 L (12.9-16.9) g/dL Hct 33.6 L (37.5-50.1) % Plt Count 137 L (140-400) K/mcL BMP 11/01/18 01:55 Sodium 137 Potassium 3.9 Chloride 106 Carbon Dioxide 24 BUN 18 Creatinine 1.04 Glucose 88 Calcium 9.4 Cardiac Enzymes 10/31/18 Range/Units 18:53 Troponin I < 0.03 (< 0.04) ng/mL - ABG Interpretation ABG results: PT/INR, D-dimer PT 11.8 Seconds (9.4-12.1) 10/31/18 07:20 - Stroke Is the patient on any antithrombotics?: Yes Consult Discharge Plan - Plan Referrals: NONE,PCP [Primary Care Provider] - (1) Chest pain Qualifiers: Chest pain type: unspecified Qualified Code(s): R07.9 - Chest pain, unspecified (4) CAD (coronary artery disease) Qualifiers: Coronary Disease-Associated Artery/Lesion type: [place] artery [place] vs. transplanted heart: [place] heart Associated angina: without angina Qualified Code(s): I25.10 - Atherosclerotic heart disease of [place] coronary artery without angina pectoris (5) Diabetes mellitus Qualifiers: Diabetes mellitus type: type 2 Diabetes mellitus fci insulin use: without superintendent terminal use Diabetes mellitus complication status: with hyperglycemia Qualified Code(s): E11.65 - Type 2 diabetes mellitus with hyperglycemia (6) HTN (hypertension) Qualifiers: Hypertension type: essential hypertension Qualified Code(s): I10 - Essential (primary) hypertension (7) CVA (cerebral infarction) Qualifiers: Cerebral infarction mechanism: unspecified mechanism Qualified Code(s): I63.9 - Cerebral infarction, unspecified (8) GERD (gastroesophageal reflux disease) Qualifiers: Esophagitis presence: esophagitis presence not specified Qualified Code(s): K21.9 - Gastro-esophageal reflux disease without esophagitis
--- NOTE | 2018-11-01 15:23 | Cardiology Consult Note ---
<Suellen Nguyen - Last Filed: 11/01/18 15:20> Date of Encounter: 11/01/18 Time of Encounter: 15:20 Assessment and Plan (1) Chest pain Status: Acute Per cardiology: -Admitted with stable anginal symptoms. -Troponins negative. -Denies current chest pain. -ECG with non-specific T wave abnormalities noted. -On asa, statin, BB, plavix. -Stress test with small sized, mild intensity apex and apical lateral perfusion defect siggestive of a small area of ischemia SDS 3. -Discussed potential LHC vs medical management and outpatient follow up. Patient would like outpatient follow up. -Will add imdur. -Recommend SL nitro RX at discharge. -Anticipate sign off, once seen and evaluated by . Will arrange close outpatient follow up. Qualifiers: Chest pain type: unspecified Qualified Code(s): R07.9 - Chest pain, unspecified (2) CAD (coronary artery disease) Status: Chronic Per cardiology: -Known history of CAD. Underwent LHC 11/2017 with multi-vessel CAD noted, Was evaluated by CT surgery and deemed not a candidate for CABG due to poor targets. -Patient then underwent staged PCI with PTCA with drug-eluting stent to ostial proximal LAD 90% lesion, PTCA and drug-eluting stent to proximal circumflex 99% lesion, PTCA/drug-eluting stent to 99% distal marginal lesion, status post PTCA and drug-eluting stent overlapping 2 to proximal RCA 70% lesion and mid RCA 80% lesion, status post PTCA of PLB 95% lesion with residual 70% stenosis, PDA sever guilherme diffusely diseased. -TTE 12/2017 with LVEF 60%, no wall motion abnormalities noted. -ON asa, statin, BB, plavix. -Will add imdur. Qualifiers: Coronary Disease-Associated Artery/Lesion type: [place] artery [place] vs. transplanted heart: [place] heart Associated angina: with stable angina Qualified Code(s): I25.118 - Atherosclerotic heart disease of [place] coronary artery with other forms of angina pectoris Discussion w patient/family: The assessment and plan as outlined above was discussed with the patient who expressed understanding and agreement. All questions were answered. Thank you for involving us in the care of your patient. Please call with any questions. Discussed and reviewed with . History of Present Illness Consult date: 11/01/18 Requesting physician: Pillo Way Consult reason: abnormal stress test Chief complaint: chest pain History of present illness: Mr. Carrillo is a 58 year old male with a relevant past medical history of CAD s/p multi-vessel PCI, CVA, HTN, DM, who presented to [facility] with complaints of chest pain. Patient states on Tuesday, he was at work doing his normal activites and noticed chest pain. Patient states he sat down and rested and chest pain subsided after 2-3 minutes. States he got back up and tried to do more work and had similar to symptoms so he rested again. States he was encouraged by his to come to the hospital. Denies current chest pain. Denies shortness of breath. Denies increased fatigue. Past Med Surg Social Fam HX - Past Medical History Attestation: Yes The following information was validated with the patient. Source: patient, old records reviewed Medical history: arthritis, COPD, coronary artery disease, CVA, diabetes, GERD, hyperlipidemia, hypertension, syncope, TIA, other Additional medical history: Jenkins's [place]. Psychiatric history: no psych history - Past Surgical History Surgical History: appendectomy Additional surgical history: LEFT KNEE SURGERY, cardiac stents x5, Heart cath, - Social History Smoking Status: Current every day smoker Packs per day: .5 Smokeless Tobacco Status: No Alcohol use: none Drug use: none - Family History Father Living Status: Age at : 75 Cause of : [place] Hx Family Cardiac Disorders: Yes Mother Adopted: No Living Status: Hx Family Cardiac Disorders: No Hx Family Respiratory Disorders: No Hx Family Cancer: Yes (BREAST CANCER) Hx Family GI Disorders: No Hx Family Endocrine Disorder: No Hx Family Neuromuscular Disorders: No Hx Family Neurologic Disorders: No Hx Family HEENT Disorders: No Hx Family Autoimmune Disorders: No Son Adopted: No Age: 31 Hx Family Endocrine Disorder: Yes Medications and Allergies Aspirin 81 mg PO DAILY 10/18/16 [History] Gabapentin [Neurontin] 600 mg PO QID 10/18/16 [History] Lisinopril [Zestril] 20 mg PO DAILY 11/15/17 [History] amLODIPine [Norvasc] 5 mg PO DAILY 12/20/17 [History] Carvedilol [Coreg] 25 mg PO BID 10/31/18 [History] Clopidogrel [Plavix] 75 mg PO DAILY 10/31/18 [History] Ezetimibe [Zetia] 10 mg PO DAILY 10/31/18 [History] LORazepam [Ativan] 0.5 mg PO DAILY PRN 10/31/18 [History] Metformin HCl 1,000 mg PO BIDWM 10/31/18 [History] Pantoprazole Sodium 40 mg PO DAILY 10/31/18 [History] Isosorbide MONOnitrate (24 HR) [Imdur] 30 mg PO DAILY #30 tab.er.24h 11/01/18 [Rx] Nicotine Patch [Nicoderm] 21 mg TD DAILY #30 patch.td24 11/01/18 [Rx] Allergy/AdvReac Type Severity Reaction Status Date / Time No Known Allergies Allergy Verified 10/31/18 16:06 All Systems Review: The remainder of the systems were reviewed and are negative - Cardiovascular Cardiovascular: as per HPI, chest pain with exertion Physical Examination Vital Signs Temperature 98.1 F 10/31/18 07:16 Pulse Rate 74 10/31/18 07:16 Respiratory Rate 16 10/31/18 07:16 Blood Pressure 155/97 10/31/18 07:16 O2 Sat by Pulse Oximetry 95 10/31/18 07:16 Temperature 98.3 F 11/01/18 11:08 Pulse Rate 64 11/01/18 11:08 Respiratory Rate 16 11/01/18 11:08 Blood Pressure 129/81 11/01/18 11:08 O2 Sat by Pulse Oximetry 96 11/01/18 11:08 Oxygen Delivery Oxygen Delivery Room Air General: Conversant, No Apparent Distress HEENT: Atraumatic, Normocephaly, Mucus Membranes Moist Neck: No JVD, Normal carotid pulses Cardiac: Reg Rate and Rhythm, Normal S1 and S2, No Murmur Lungs: Normal Breath Sounds, No Wheeze, Rales, Rhonchi Neuro: Alert and responsive, No focal deficits noted Abdomen: Soft, Non-Tender Skin: No rashes noted on visualized skin Musculoskeletal: No Chest Wall Tenderness Extremities: No Clubbing, No Cyanosis, No Edema, Normal Pulses Results 11/01/18 01:55 11/01/18 01:55 Lab Results Active Medications Acetaminophen (Tylenol) 650 mg PO Q6HR PRN PRN Reason: Mild Pain/Fever Stop: 05/02/19 08:48 Amlodipine Besylate (Norvasc) 5 mg PO DAILY [facility]; Protocol Stop: 05/02/19 09:01 Last Admin: 11/01/18 09:45 Dose: Not Given Documented by: Aspirin (Aspirin) 81 mg PO DAILY [facility] Stop: 05/02/19 09:01 Last Admin: 11/01/18 09:45 Dose: Not Given Documented by: Atorvastatin Calcium (Lipitor) 40 mg PO HS [facility] Stop: 05/02/19 21:01 Last Admin: 10/31/18 20:29 Dose: 40 mg Documented by: Carvedilol (Coreg) 12.5 mg PO BIDWM [facility]; Protocol Stop: 05/02/19 17:01 Last Admin: 11/01/18 09:45 Dose: Not Given Documented by: Clopidogrel Bisulfate (Plavix) 75 mg PO DAILY [facility] Stop: 05/03/19 14:31 Dextrose/Water (Dextrose 50% (Syg)) 25 ml IVP AD PRN PRN Reason: Hypoglycemia Stop: 05/02/19 08:48 Gabapentin (Neurontin) 600 mg PO QID [facility] Stop: 05/03/19 17:01 Glucagon (Glucagen) 1 mg IM ONCE PRN PRN Reason: Hypoglycemia Stop: 05/02/19 08:48 Glucose (Gluctose) 15 gm PO ONCE PRN PRN Reason: Hypoglycemia Stop: 05/02/19 08:48 Glucose (Gluctose) 30 gm PO ONCE PRN PRN Reason: Hypoglycemia Stop: 05/02/19 08:48 Heparin Sodium (Porcine) (Heparin) 5,000 unit SQ Q12HCO [facility] Stop: 05/02/19 18:01 Last Admin: 11/01/18 05:36 Dose: 5,000 unit Documented by: Dextrose (Dextrose 5%) 1,000 mls @ 100 mls/hr IVC .Q10H PRN PRN Reason: HYPOGLYCEMIA Stop: 05/02/19 08:48 Insulin Human Lispro (Humalog) 0 units SQ HS [facility]; Protocol Stop: 05/02/19 21:01 Last Admin: 10/31/18 20:20 Dose: Not Given Documented by: Insulin Human Lispro (Humalog) 0 units SQ TIDAC [facility]; Protocol Stop: 05/02/19 11:31 Last Admin: 11/01/18 12:46 Dose: Not Given Documented by: Isosorbide Mononitrate (Imdur) 30 mg PO DAILY [facility] Stop: 05/03/19 15:31 Lorazepam (Ativan) 0.5 mg PO DAILY PRN PRN Reason: Anxiety Stop: 05/03/19 14:30 Naloxone HCl (Narcan) 0.4 mg IVP Q2MPRN PRN PRN Reason: SEE COMMENTS Stop: 05/02/19 08:48 Nicotine (Nicoderm) 21 mg TD DAILY [facility]; Protocol Stop: 05/02/19 09:01 Last Admin: 11/01/18 09:45 Dose: Not Given Documented by: Omeprazole (Prilosec) 20 mg PO DAILY [facility] Stop: 05/02/19 09:01 Last Admin: 11/01/18 09:46 Dose: Not Given Documented by: Ondansetron HCl (Zofran) 4 mg IVP Q8HR PRN PRN Reason: Nausea And Vomiting Stop: 05/02/19 08:48 Pharmacy Profile Note (Patient Taking Own Medication) 1 each PO DAILY [facility] Stop: 05/04/19 09:01 Laboratory Tests 10/31/18 10/31/18 10/31/18 07:20 12:45 18:53 Hgb Creatinine 1.38 H Troponin I < 0.03 < 0.03 < 0.03 11/01/18 11/01/18 01:55 01:55 Hgb 11.0 L Creatinine 1.04 Troponin I - Imaging and Cardiology Chest Xray: report reviewed Stress Test: report reviewed Echo: report reviewed Cardiac cath: report reviewed - EKG Interpretation EKG results cardiology: personally reviewed (ECG with SR, non-specific T wave abnormalities noted.), other (Telemetry reviewed with average HR previous 12 hours noted to be 64, SR. PVCs, couplet, PACs noted.) Consult Discharge Plan - Plan Instructions: Isosorbide Mononitrate (By mouth), Chest Pain (DC) Referrals: Sam Burrows MD [Partnered Physician] - (Referral has been made. Office should call with appointment) Prescriptions: Isosorbide MONOnitrate (24 HR) [Imdur] 30 mg PO DAILY #30 tab.er.24h Nicotine Patch [Nicoderm] 21 mg TD DAILY #30 patch.td24 < A - Last Filed: 11/02/18 09:07> Date of Encounter: 11/02/18 - Attending Attestation I have personally performed a face to face evaluation on this patient. I have reviewed and agree with the documented findings and care plan as documented by the PLUG MAKER. History and Exam by me shows: 58-year-old pleasant gentleman with past history of triple-vessel coronary artery disease s/p high risk PCI, due to not being a candidate for CABG, presented with chest pain. Low risk stress positive stress test. AAOX3 in NAD at the bedside Hemodynamically stable Cardiopulmonary exam revealed S1, S2, no murmur; clear lungs Rhythm reviewed - sinus rhythm, no acute ST T changes Echo preserved EF, no significant valvular heart disease Impression/plan: CAD with low risk positive stress test. Recommend to continue medical management with addition of Imdur, and close follow-up with senior electronics engineer Dio Manjarrez MD [facility] Assessment and Plan Discussion w patient/family: The assessment and plan as outlined above was discussed with the patient and/or family members who expressed understanding and agreement. All questions were answered. Thank you for involving us in the care of your patient. Please call with any questions. History of Present Illness History of present illness: Mr. Carrillo is a 58 year old male All Systems Review: The remainder of the systems were reviewed and are negative Results 11/01/18 01:55 11/01/18 01:55
[2018-11-01] MEDS ORDERED: Isosorbide MONOnitrate (24 HR) 30 MG TAB.ER.24H PO SCH (15:30)
[2018-11-01 15:42] VITALS: BP 139/86
--- NOTE | 2018-11-01 16:10 | Discharge Summary ---
- NOTES TO OUTPATIENT PROVIDER Notes to Outpatient Provider: Follow up with PCP in one week. Follow-up with cardiology as scheduled. Please start taking Imdur 30mg Daily. Orders not resulted at time of discharge: Pending orders 11/01/18 08:00 NM benny perf SPECT multi [NM] Routine Date of Encounter: 11/01/18 Time of Encounter: 16:07 - Discharge Diagnosis (1) Chest pain Priority: Primary Status: Acute Qualifiers: Chest pain type: unspecified Qualified Code(s): R07.9 - Chest pain, unspecified (2) Abnormal stress test Priority: Primary Status: Acute (3) FIDE (acute kidney injury) Priority: Secondary Status: Acute (4) CAD (coronary artery disease) Priority: Secondary Status: Chronic Qualifiers: Coronary Disease-Associated Artery/Lesion type: [place] artery [place] vs. transplanted heart: [place] heart Associated angina: with stable angina Qualified Code(s): I25.118 - Atherosclerotic heart disease of [place] coronary artery with other forms of angina pectoris (5) Diabetes mellitus Priority: Secondary Status: Chronic Qualifiers: Diabetes mellitus type: type 2 Diabetes mellitus correction insulin use: without terminal block assembler use Diabetes mellitus complication status: with hyperglycemia Qualified Code(s): E11.65 - Type 2 diabetes mellitus with hyperglycemia (6) HTN (hypertension) Priority: Secondary Status: Chronic Qualifiers: Hypertension type: essential hypertension Qualified Code(s): I10 - Essential (primary) hypertension (7) CVA (cerebral infarction) Priority: Secondary Status: Chronic Qualifiers: Cerebral infarction mechanism: unspecified mechanism Qualified Code(s): I63.9 - Cerebral infarction, unspecified (8) GERD (gastroesophageal reflux disease) Priority: Secondary Status: Chronic Qualifiers: Esophagitis presence: esophagitis presence not specified Qualified Code(s): K21.9 - Gastro-esophageal reflux disease without esophagitis Hospital course: Mr. Carrillo is a 58 year old male with PMHx of type 2 DM, CVA, HTN, GERD, tobacco abuse, CAD with history of stent placement x5 in november 2017. Patient arrived to the ED with chief complaint of chest pain that started yesterday evening while he was at work. chest pain was substernal and described as a dull ache. he got better when he sat down to rest and re started when he got up again to go about his activities. He states the chest pain radiates to the right arm. He was admitted in the hospital and placed him on hall monitor. his serial troponin came back as negative. His EKG showed nonspecific ST changes. He denied any more active CP since he came to the floor. Since patient is high risk for ACS he did go for nuclear stress test which came back as slightly abnormal with small sized, mild intensity, reversible apex and apical lateral perfusion defect suggestive of a small area of ischemia. SDS 3. Pt was even admitted by cardiology who offered Left heart cath, however pt wanted to have it done as an out pt. So pt was placed on Imdur by cardiology and cleared to d/c home today. - Time Spent with Patient Total time spent providing and/or coordinating discharge services: - Discharge Medications Prescriptions: New Isosorbide MONOnitrate (24 HR) [Imdur] 30 mg PO DAILY #30 tab.er.24h Nicotine Patch [Nicoderm] 21 mg TD DAILY #30 patch.td24 Continued Gabapentin [Neurontin] 600 mg PO QID Lisinopril [Zestril] 20 mg PO DAILY amLODIPine [Norvasc] 5 mg PO DAILY Carvedilol [Coreg] 25 mg PO BID Clopidogrel [Plavix] 75 mg PO DAILY Ezetimibe [Zetia] 10 mg PO DAILY LORazepam [Ativan] 0.5 mg PO DAILY PRN PRN Reason: Anxiety Metformin HCl 1,000 mg PO BIDWM Pantoprazole Sodium 40 mg PO DAILY Aspirin 81 mg PO DAILY Discontinued Ibuprofen [Motrin] 800 mg PO TID PRN PRN Reason: Pain Home Medications: Aspirin 81 mg PO DAILY 10/18/16 [History] Gabapentin [Neurontin] 600 mg PO QID 10/18/16 [History] Lisinopril [Zestril] 20 mg PO DAILY 11/15/17 [History] amLODIPine [Norvasc] 5 mg PO DAILY 12/20/17 [History] Carvedilol [Coreg] 25 mg PO BID 10/31/18 [History] Clopidogrel [Plavix] 75 mg PO DAILY 10/31/18 [History] Ezetimibe [Zetia] 10 mg PO DAILY 10/31/18 [History] LORazepam [Ativan] 0.5 mg PO DAILY PRN 10/31/18 [History] Metformin HCl 1,000 mg PO BIDWM 10/31/18 [History] Pantoprazole Sodium 40 mg PO DAILY 10/31/18 [History] Isosorbide MONOnitrate (24 HR) [Imdur] 30 mg PO DAILY #30 tab.er.24h 11/01/18 [Rx] Nicotine Patch [Nicoderm] 21 mg TD DAILY #30 patch.td24 11/01/18 [Rx] Allergies/Adverse Reactions: Allergy/AdvReac Type Severity Reaction Status Date / Time No Known Allergies Allergy Verified 10/31/18 16:06 Date of admission: 10/31/18 08:22 Primary care physician: PCP NONE Consults: 11/01/18 14:28 Consult to Cardiology [CONS] Routine Comment: Consulting Provider: Cardiology Florina Reason for Consult: Abnormal stress test Time Notified: 14:29 Call Completed: Yes - Constitutional Vitals: Temp Pulse Resp BP Pulse Ox 98.2 F 72 16 139/86 96 11/01/18 15:39 11/01/18 15:39 11/01/18 15:39 11/01/18 15:39 11/01/18 15:39 General appearance: Present: A&O X 3, no acute distress Exam: Gen: Alert, awake, Oriented to time,place and person Chest: Diminished breath sounds B/L, No wheezing, No crackles, No rales Heart: S1S2+ RRR No murmurs Abd: Soft, NT, BS +, No organomegaly Ext: No edema, pulses are palpable, No calf tenderness Neuro : No acute focal neuro deficits noticed Skin: No rash. - Patient Status Disposition: Home, Self-Care Condition: Good Overall status at discharge: patient is back to baseline - Discharge Instructions Instructions: Isosorbide Mononitrate (By mouth), Chest Pain (DC) Follow Up With: Sam Burrows MD [Partnered Physician] - (Referral has been made. Office should call with appointment) Forms: Inpatient Work/School Release - Diet and Activity Activity: increase activity as tolerated Diet: low salt diet - Stroke Is the patient on any antithrombotics?: Yes
[2018-11-01] MEDS ORDERED: Gabapentin 300 MG CAPSULE PO SCH (17:00)
--- NOTE | 2018-11-01 18:04 | Electrocardiograph Report ---
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
[2018-11-02] MEDS ORDERED: ZETIA 10 MG PO SCH (09:00)
[2018-11-02] MEDS ORDERED: NON-FORMULARY MEDICATION 1 EACH EACH (Pantoprazole Sodium 40 MG) PO SCH (09:00)
== END 2018-11-01 17:07 | disposition home or self-care (01) ==
LOC: 3BNU 07:11 → EMEROOARM 07:11 → SUATTDRO 08:22 → 3BNU 09:56
PROVIDERS: ADMIT Internal Medicine Nephrology; ATTEND Family Medicine